=== PATIENT | female | born 1980 | race Caucasian/White ===

== ENCOUNTER 2020-01-15 14:40 | Outpatient (REF) | payer MEDICAID, SELFPAY ==
[2020-01-15 21:49] LABS: Hemoglobin A1C 5.9 % (<5.7)
[2020-01-15 22:10] LABS: ALT 37 U/L (14-59); AST 17 U/L (15-37); Albumin 3.4 g/dL (3.4-5.0); Alkaline Phosphatase 95 U/L (46-116); BUN 12 mg/dL (7-18); Bilirubin, Total 0.3 mg/dL (0.2-1.0); CREATININE 0.78 mg/dL (0.55-1.02); Calcium 8.6 mg/dL (8.5-10.1); Calculated LDL 109 mg/dL (<100); Chloride 103 mmol/L (98-107); Cholesterol 176 mg/dL (<200); Glucose 103 mg/dL (74-106); HDL Cholesterol 42 mg/dL (40-60); Potassium 4.6 mmol/L (3.5-5.1); Sodium 137 mmol/L (136-145); TSH (W/Ref FT4) 0.96 uIU/mL (0.36-3.74); Total Protein 6.8 g/dL (6.4-8.2); Triglyceride 129 mg/dL (<150); Vitamin B12 380 pg/mL (193-986)
== END 2020-01-15 15:00 ==
LOC: NCHCN 14:40
PROVIDERS: Visit Provider Nurse Practitioner Family
DX: G62.9 Polyneuropathy, unspecified (principal); Z13.220 Encounter for screening for lipoid disorders; Z13.29 Encounter for screening for other suspected endocrine disorder; Z13.1 Encounter for screening for diabetes mellitus
CPT/HCPCS: 80053; 80061; 82607; 83036; 84443

== ENCOUNTER 2020-02-26 17:50 | Outpatient (REF) | payer MEDICAID, SELFPAY ==
[2020-02-26 13:56] LABS: Abs Immature Grans 0.06 10^3/uL (0.0-0.06); Absolute Basophil Count 0.07 10^3/uL (0.0-0.2); Absolute Eosinophil Count 0.54 10^3/uL (0.0-0.7); Absolute Lymphocyte Count 2.77 10^3/uL (1.2-3.4); Absolute Monocyte Count 0.97 10^3/uL (0.1-0.8); Basophils % 0.6; Eosinophils % 4.8; HCT 43.1 % (36.0-46.0); Immature Grans % 0.5; Lymphocytes % 24.6; MCH 28.7 pg (27.0-33.0); MCHC 32.5 % (32.0-36.0); MCV 88.3 fL (80-95); MPV 9.2 fL (8.0-11.0); Monocytes % 8.6; Neutrophils % 60.9; Nucleated RBC 0 %; Platelet Count 355 10^3/uL (130-400); RBC 4.88 10^6/uL (3.93-5.22); RDW 13.1 % (11.7-14.6); RDW-SD 42.4 fL; WBC 11.24 10^3/uL (4.4-10.8)
[2020-02-26 13:58] LABS: Absolute Neutrophil Count 6.85 10^3/uL (1.2-6.7)
[2020-02-26 14:16] LABS: ALT 49 U/L (14-59); AST 21 U/L (15-37); Albumin 3.3 g/dL (3.4-5.0); Alkaline Phosphatase 104 U/L (46-116); Anion Gap 5.1 mmol/L (3-11); BUN 11 mg/dL (7-18); Bilirubin, Total 0.4 mg/dL (0.2-1.0); CO2 29.9 mmol/L (21.0-32.0); CREATININE 0.68 mg/dL (0.55-1.02); Calcium 8.6 mg/dL (8.5-10.1); Chloride 102 mmol/L (98-107); Glucose 98 mg/dL (74-106); Lipase 66 U/L (73-393); Potassium 4.4 mmol/L (3.5-5.1); Sodium 137 mmol/L (136-145); Total Protein 6.8 g/dL (6.4-8.2)
[2020-02-26 14:28] LABS: Bacteria Moderate HPF (Negative)
[2020-02-26 14:29] LABS: C & S Indicated? No/Sq. Contamination; Epithelial Cells Many HPF (Negative)
== END 2020-02-26 18:10 ==
LOC: NCHCN 17:50
PROVIDERS: PCP Nurse Practitioner Family; Visit Provider Nurse Practitioner Family
DX: R10.9 Unspecified abdominal pain (principal)
CPT/HCPCS: 80053; 83690; 81015; 85025

== ENCOUNTER 2020-03-26 15:20 | Outpatient (REF) | payer MEDICAID, SELFPAY ==
[2020-03-26 21:30] LABS: Bacteria Negative HPF (Negative); C & S Indicated? No; Crystals Negative HPF (Negative); Epithelial Cells Moderate HPF (Negative); Mucus Negative (Negative); RBC 0-2 HPF (0-2); WBC Negative HPF (0-5)
== END 2020-03-26 15:21 | disposition home or self-care (01) ==
LOC: NCHCN 15:20
PROVIDERS: PCP Nurse Practitioner Family; Visit Provider Nurse Practitioner Family
DX: R10.9 Unspecified abdominal pain (principal)
CPT/HCPCS: 81015

== ENCOUNTER 2020-07-29 12:13 | Outpatient (REF) | payer MEDICAID, SELFPAY ==
[2020-07-30 11:34] LABS: COVID-19 RT-PCR UVMMC Result Negative (Negative)
== END 2020-07-29 12:14 | disposition home or self-care (01) ==
LOC: NCHCN 12:13
PROVIDERS: PCP Nurse Practitioner Family; Visit Provider Nurse Practitioner Family
DX: Z20.822 Contact with and (suspected) exposure to COVID-19 (principal); J06.9 Acute upper respiratory infection, unspecified
CPT/HCPCS: U0003

== ENCOUNTER 2021-08-14 17:47 | Outpatient (REF) | payer MEDICAID, SELFPAY ==
[2021-08-14 21:45] LABS: Abs Immature Grans 0.05 10^3/uL (0.0-0.06); Absolute Basophil Count 0.04 10^3/uL (0.0-0.2); Absolute Eosinophil Count 0.37 10^3/uL (0.0-0.7); Absolute Lymphocyte Count 2.89 10^3/uL (1.2-3.4); Absolute Monocyte Count 0.76 10^3/uL (0.1-0.8); Absolute Neutrophil Count 6.21 10^3/uL (1.2-6.7); Basophils % 0.4; Eosinophils % 3.6; HCT 44.5 % (36.0-46.0); HGB 14.4 g/dL (11.2-15.7); Immature Grans % 0.5; MCH 29.2 pg (27.0-33.0); MCHC 32.4 % (32.0-36.0); MCV 90 fL (80-95); MPV 9.8 fL (8.0-11.0); Monocytes % 7.4; Neutrophils % 60.1; Platelet Count 310 10^3/uL (130-400); RBC 4.93 10^6/uL (3.93-5.22); RDW 12.7 % (11.7-14.6); RDW-SD 41.4 fL; WBC 10.32 10^3/uL (4.4-10.8)
[2021-08-14 22:10] LABS: ALT 65 U/L (14-59); AST 40 U/L (15-37); Albumin 3.3 g/dL (3.4-5.0); Alkaline Phosphatase 99 U/L (46-116); Anion Gap 10.8 mmol/L (3-11); BUN 10 mg/dL (7-18); Bilirubin, Total 0.2 mg/dL (0.2-1.0); CO2 25.2 mmol/L (21.0-32.0); CREATININE 0.7 mg/dL (0.55-1.02); Calcium 8.6 mg/dL (8.5-10.1); Chloride 102 mmol/L (98-107); Glucose 113 mg/dL (74-106); Lipase 24 U/L (73-393); Potassium 3.8 mmol/L (3.5-5.1); Sodium 138 mmol/L (136-145)
== END 2021-08-14 17:48 | disposition home or self-care (01) ==
LOC: NCHCN 17:47
PROVIDERS: PCP Nurse Practitioner Family; Visit Provider Nurse Practitioner Family
DX: R19.7 Diarrhea, unspecified (principal)
CPT/HCPCS: 80053; 83690; 85025

== ENCOUNTER 2022-01-05 22:33 | Outpatient (REF) | payer MEDICAID, SELFPAY ==
[2022-01-05 22:35] LABS: TSH 1.22 uIU/mL (0.36-3.74)
== END 2022-01-05 22:34 | disposition home or self-care (01) ==
LOC: NCHCN 22:33
PROVIDERS: PCP Nurse Practitioner Family; Visit Provider Nurse Practitioner Family
DX: Z13.29 Encounter for screening for other suspected endocrine disorder (principal)
CPT/HCPCS: 84443

== ENCOUNTER 2022-04-24 17:07 | Outpatient (REF) | payer MEDICAID, SELFPAY ==
[2022-04-24 21:28] LABS: Abs Immature Grans 0.04 10^3/uL (0.0-0.06); Absolute Basophil Count 0.08 10^3/uL (0.0-0.2); Absolute Eosinophil Count 0.25 10^3/uL (0.0-0.7); Absolute Lymphocyte Count 3.37 10^3/uL (1.2-3.4); Absolute Monocyte Count 0.89 10^3/uL (0.1-0.8); Absolute Neutrophil Count 6.72 10^3/uL (1.2-6.7); Basophils % 0.7; Eosinophils % 2.2; HCT 45.5 % (36.0-46.0); HGB 15.2 g/dL (11.2-15.7); Immature Grans % 0.4; Lymphocytes % 29.7; MCH 29.8 pg (27.0-33.0); MCHC 33.4 % (32.0-36.0); MCV 89 fL (80-95); MPV 9.7 fL (8.0-11.0); Monocytes % 7.8; Neutrophils % 59.2; Platelet Count 397 10^3/uL (130-400); RDW 12.1 % (11.7-14.6); RDW-SD 39.6 fL; WBC 11.35 10^3/uL (4.4-10.8)
[2022-04-24 21:49] LABS: ALT 54 U/L (14-59); AST 28 U/L (15-37); Albumin 3.4 g/dL (3.4-5.0); Alkaline Phosphatase 95 U/L (46-116); BUN 20 mg/dL (7-18); Bilirubin, Total 0.2 mg/dL (0.2-1.0); CREATININE 0.9 mg/dL (0.55-1.02); Calcium 9.1 mg/dL (8.5-10.1); Chloride 101 mmol/L (98-107); Estimated GFR 81.86 (mL/min/1.73m2); Glucose 131 mg/dL (74-106); Sodium 139 mmol/L (136-145); Total Protein 7.2 g/dL (6.4-8.2)
== END 2022-04-24 17:08 | disposition home or self-care (01) ==
LOC: NCHCN 17:07
PROVIDERS: PCP Nurse Practitioner Family; Visit Provider Registered Nurse
DX: E66.01 Morbid (severe) obesity due to excess calories (principal); Z13.1 Encounter for screening for diabetes mellitus; Z13.228 Encounter for screening for other metabolic disorders
CPT/HCPCS: 80053; 85025

== ENCOUNTER 2023-04-27 13:02 | Outpatient (REF) | payer MEDICAID, SELFPAY ==
[2023-04-27 14:55] LABS: ALT 52 U/L (14-59); AST 41 U/L (15-37); Albumin 3.4 g/dL (3.4-5.0); Alkaline Phosphatase 91 U/L (46-116); Anion Gap 10.9 mmol/L (3-11); BUN 8 mg/dL (7-18); Bilirubin, Total 0.5 mg/dL (0.2-1.0); CO2 33.1 mmol/L (21.0-32.0); CREATININE 0.8 mg/dL (0.55-1.02); Calcium 8.5 mg/dL (8.5-10.1); Chloride 97 mmol/L (98-107); Glucose 130 mg/dL (74-106); Sodium 141 mmol/L (136-145); Total Protein 7.7 g/dL (6.4-8.2)
[2023-04-27 15:05] LABS: Potassium 2.6 mmol/L (3.5-5.1)
== END 2023-04-27 13:03 | disposition home or self-care (01) ==
LOC: NCHCN 13:02
PROVIDERS: PCP Nurse Practitioner Family; Visit Provider Family Medicine
DX: R73.03 Prediabetes (principal); I10 Essential (primary) hypertension
CPT/HCPCS: 80053; 83036

== ENCOUNTER 2023-06-15 15:46 | Outpatient (REF) | payer MEDICAID, SELFPAY ==
[2023-06-15 20:45] LABS: Anion Gap 6.6 mmol/L (3-11); BUN 9 mg/dL (7-18); CO2 31.4 mmol/L (21.0-32.0); CREATININE 0.7 mg/dL (0.55-1.02); Calcium 9.3 mg/dL (8.5-10.1); Chloride 101 mmol/L (98-107); Estimated GFR 109.98 (mL/min/1.73m2); Glucose 127 mg/dL (74-106); Potassium 3.9 mmol/L (3.5-5.1); Sodium 139 mmol/L (136-145)
== END 2023-06-15 15:47 | disposition home or self-care (01) ==
LOC: NCHCN 15:46
PROVIDERS: PCP Nurse Practitioner Family; Visit Provider Family Medicine
DX: E87.6 Hypokalemia (principal)
CPT/HCPCS: 80048

== ENCOUNTER 2023-08-20 22:03 | Outpatient (REF) | payer MEDICAID, SELFPAY ==
[2023-08-20 15:23] LABS: Anion Gap 7.1 mmol/L (3-11); BUN 9 mg/dL (7-18); CO2 33.9 mmol/L (21.0-32.0); CREATININE 0.9 mg/dL (0.55-1.02); Calcium 9.2 mg/dL (8.5-10.1); Calculated LDL 109 mg/dL (<100); Chloride 101 mmol/L (98-107); Cholesterol 185 mg/dL (<200); Estimated GFR 81.35 (mL/min/1.73m2); Glucose 111 mg/dL (74-106); HDL Cholesterol 36 mg/dL (40-60); Potassium 3.7 mmol/L (3.5-5.1); Sodium 142 mmol/L (136-145); Triglyceride 201 mg/dL (<150)
--- OUTSIDE RECORDS SUMMARY | 2023-08-20 22:10 | XMS_ITS ---
Author Organization Unknown Address [address] [place] [address] [phone] Phone Care Team Providers Care Body Builder Apprentice Name Role Phone KELLER HUSSAIN GUTIERREZ Attending Unavail able MIGUEL TO Primary Unavailable Social History Type Status Start Date End Date Code Code Syst em Smoking History Former smoker 12/20/19977081 3469277 SNOMED CT Sex Female Medications Medication Start Date End Date Route Frequency Dose Code Code System Medication Instructions Home Meds Low Dose Aspirin 81MG Oral Tablet, Enteric Coated 04/11/2022 Unknown ORAL DAILY WITH FOOD 81 MILLIGRAMS 107933 RxNorm TAKE 81 MILLIGRAMS ORAL DAILY WITH FOOD Metoprolol Succinate 50MG Oral Tablet, Extended Release 04/11/2022 Unknown ORAL DAILY 50 MILLIGRAMS 325095 RxNorm TAKE 50 MILLIGRAMS ORAL DAILY Entresto 24MG-26MG Oral Tablet 04/11/2022 Unknown ORAL TWICE A DAY 1 TABLET [id number] RxNorm TAKE 1 TABLET ORAL TWICE A DAY Albuterol Sulfate HFA 0.09MG/1Actua tion Inhalation Suspension 04/11/2022 Unknown INHALATIO N 1 unit(s) 0368345 RxNorm 1 EACH INHALATION Buprenorphine 2MG Sublingual Tablet 04/11/2022 Unknown SUBLINGUA L noon 2 MILLIGRAMS 338053 RxNorm DISSOLVE 2 MILLIGRAMS SUBLINGUAL noon Buprenorphine 2MG Sublingual Tablet 04/11/2022 Unknown SUBLINGUA L TWICE A DAY 4 MILLIGRAMS 137735 RxNorm DISSOLVE 4 MILLIGRAMS SUBLINGUAL TWICE A DAY Gabapentin 300MG Oral Capsule 04/11/2022 Unknown ORAL NEEDED TWICE DAILY 300 MILLIGRAMS 660716 RxNorm TAKE 300 MILLIGRAMS ORAL NEEDED TWICE DAILY Torsemide 20MG Oral Tablet 04/11/2022 Unknown ORAL DAILY 1 TABLET 264039 RxNorm TAKE 1 TABLET ORAL DAILY Doxycycline 100MG Oral Capsule 12/08/2022 04/27/19 24 ORAL TWICE A DAY 1 CAPSULE 1717257 RxNorm TAKE 1 CAPSULE ORAL TWICE A DAY Krysten Allergy 180MG Oral Tablet 04/28/2023 Unknown ORAL DAILY 180 MILLIGRAMS 747403 RxNorm TAKE 180 MILLIGRAMS ORAL DAILY Jardiance 10MG Oral Tablet 04/28/2023 Unknown ORAL DAILY 10 MILLIGRAMS 4887112 RxNorm TAKE 10 MILLIGRAMS ORAL DAILY Spironolacton e 25MG Oral Tablet 04/28/2023 Unknown ORAL DAILY 12.5 MILLIGRAMS 067821 RxNorm TAKE 12.5 MILLIGRAMS ORAL DAILY Potassium Chloride 10MEQ Oral Tablet, Extended Release 04/28/2023 Unknown ORAL DAILY 1 TABLET 478002 RxNorm TAKE 1 TABLET ORAL DAILY Assessment You had the following problems:HYPOKALEMIAHYPOMAGNESEMIACARDIOMYOPATHYOBSTRUCTIVE SLEEP APNEAHYPERTENSIONANXIETY Hospital Discharge Instructions Should you have any questions prior to discharge, please contact a member of your healthcare team. If you have left the hospital and have any questions, please contact your primary care physician. Reason For Referral No Data Found Problems Problem Start Date Resolved Date Status Code Code System HYPOKALEMIA active 69465840 SNOMED-C T HYPOMAGNESEMIA active 021178546 SNOME D-CT CARDIOMYOPATHY active 53341070 SNOME D-CT OBSTRUCTIVE SLEEP APNEA active 956696 09 SNOMED-CT HYPERTENSION active 31315539 SNOMED- CT ANXIETY active 53930026 SNOMED-CT ANGIOEDEMA 04/27/2023 resolved 16100211 SNOMED-C T Allergies and Adverse Reactions Allergy Substance Reaction Severity Start Date Concern Status Code Code System FUROSEMIDE Anaphylaxis (SNOMED-CT: 95452261) Active 4603 RxNorm NALOXONE Anaphylaxis (SNOMED-CT: 97871195) Active 7242 RxNorm HYDROCODONE Headache (SNOMED-CT: 81773811), NAUSEA (SNOMED-CT: 458125751), Nausea (SNOMED-CT: 667967935) Active 5489 RxNorm RITALIN Anaphylaxis (SNOMED-CT: 44453986) Active 002811 RxNorm ALMOND Anaphylaxis (SNOMED-CT: 15103499) 04/08/2018 Active 035035944 SNOMED-CT Plan of Treatment MM SCREEN BILAT 07/08/2023 MM SCREEN BILAT 05/12/2022 MM SCREEN BILAT 03/23/2022 MM SCREEN BILAT 12/02/2020 US ABDOMEN COMPLETE 10/06/2021 US ABDOMEN LIMITED 1 ORGAN 05/12/2022 US ABDOMEN LIMITED 1 ORGAN 03/18/2022 Encounters Encounter Diagnosis Start Date Code Code Sys tem Obstructive sleep apnea (adult) (pediatric) 04/23/2021 SNOMED-CT Personal Care Team Section Performer Name Performer Role Active Date Inactive Da te
--- OUTSIDE RECORDS SUMMARY | 2023-08-20 22:10 | XMS_ITS ---
Author Organization Unknown Address [address] [place] [address] [phone] Phone Care Team Providers Care Erector Operator Name Role Phone INDER PEDROZAOMI Ranjith Attending Unavailable CIARA MARQUEZ Primary Unavailable Social History Type Status Start Date End Date Code Code Syst em Smoking History Former smoker 12/20/19973611 36879[address] SNOMED [address] Sex Female Medications Medication Start Date End Date Route Frequency Dose Code Code System Medication Instructions Home Meds Low Dose Aspirin 81MG Oral Tablet, Enteric Coated 04/11/2022 Unknown ORAL DAILY WITH FOOD 81 MILLIGRAMS 908132 RxNorm TAKE 81 MILLIGRAMS ORAL DAILY WITH FOOD Metoprolol Succinate 50MG Oral Tablet, Extended Release 04/11/2022 Unknown ORAL DAILY 50 MILLIGRAMS 657776 RxNorm TAKE 50 MILLIGRAMS ORAL DAILY Entresto 24MG-26MG Oral Tablet 04/11/2022 Unknown ORAL TWICE A DAY 1 TABLET 5473373 RxNorm TAKE 1 TABLET ORAL TWICE A DAY Albuterol Sulfate HFA 0.09MG/1Actua tion Inhalation Suspension 04/11/2022 Unknown INHALATIO N 1 unit(s) 5090804 RxNorm 1 EACH INHALATION Buprenorphine 2MG Sublingual Tablet 04/11/2022 Unknown SUBLINGUA L noon 2 MILLIGRAMS 231207 RxNorm DISSOLVE 2 MILLIGRAMS SUBLINGUAL noon Buprenorphine 2MG Sublingual Tablet 04/11/2022 Unknown SUBLINGUA L TWICE A DAY 4 MILLIGRAMS 676120 RxNorm DISSOLVE 4 MILLIGRAMS SUBLINGUAL TWICE A DAY Gabapentin 300MG Oral Capsule 04/11/2022 Unknown ORAL NEEDED TWICE DAILY 300 MILLIGRAMS 938253 RxNorm TAKE 300 MILLIGRAMS ORAL NEEDED TWICE DAILY Torsemide 20MG Oral Tablet 04/11/2022 Unknown ORAL DAILY 1 TABLET 073884 RxNorm TAKE 1 TABLET ORAL DAILY Doxycycline 100MG Oral Capsule 12/08/2022 04/27/19 24 ORAL TWICE A DAY 1 CAPSULE 4803169 RxNorm TAKE 1 CAPSULE ORAL TWICE A DAY Krysten Allergy 180MG Oral Tablet 04/28/2023 Unknown ORAL DAILY 180 MILLIGRAMS 891087 RxNorm TAKE 180 MILLIGRAMS ORAL DAILY Jardiance 10MG Oral Tablet 04/28/2023 Unknown ORAL DAILY 10 MILLIGRAMS 9252326 RxNorm TAKE 10 MILLIGRAMS ORAL DAILY Spironolacton e 25MG Oral Tablet 04/28/2023 Unknown ORAL DAILY 12.5 MILLIGRAMS 014693 RxNorm TAKE 12.5 MILLIGRAMS ORAL DAILY Potassium Chloride 10MEQ Oral Tablet, Extended Release 04/28/2023 Unknown ORAL DAILY 1 TABLET 572021 RxNorm TAKE 1 TABLET ORAL DAILY Assessment [...] Date Status Code Code System HYPOKALEMIA active 18081326 SNOMED-C T HYPOMAGNESEMIA active 907726073 SNOME D-CT CARDIOMYOPATHY active 34903092 SNOME D-CT OBSTRUCTIVE SLEEP APNEA active 469883 09 SNOMED-CT HYPERTENSION active 82477266 SNOMED- CT ANXIETY active 51810742 SNOMED-CT ANGIOEDEMA 04/27/2023 resolved 82687266 SNOMED-C T Allergies and Adverse Reactions Allergy Substance Reaction Severity Start Date Concern Status Code Code System FUROSEMIDE Anaphylaxis (SNOMED-CT: 05867606) Active 4603 RxNorm NALOXONE Anaphylaxis (SNOMED-CT: 43059439) Active 7242 RxNorm HYDROCODONE Headache (SNOMED-CT: 57729343), NAUSEA (SNOMED-CT: 482999775), Nausea (SNOMED-CT: 805840658) Active 5489 RxNorm RITALIN Anaphylaxis (SNOMED-CT: 57252068) Active 213823 RxNorm ALMOND Anaphylaxis (SNOMED-CT: 38559373) 04/08/2018 Active 424161628 SNOMED-CT Plan of Treatment MM SCREEN BILAT 07/08/2023 MM SCREEN BILAT 05/12/2022 MM SCREEN BILAT 03/23/2022 MM SCREEN BILAT 12/02/2020 US ABDOMEN COMPLETE 10/06/2021 US ABDOMEN LIMITED 1 ORGAN 05/12/2022 US ABDOMEN LIMITED 1 ORGAN 03/18/2022 Encounters Encounter Diagnosis Start Date Code Code Sys tem Obstructive sleep apnea (adult) (pediatric) 02/11/2021 SNOMED-CT Personal Care Team Section Performer Name Performer Role Active Date Inactive Da te
--- OUTSIDE RECORDS SUMMARY | 2023-08-20 22:11 | XMS_ITS ---
Author Organization Unknown Address [address] [place] [address] [phone] Phone Care Team Providers Care Scale Expert Name Role Phone INDER PEDROZAOMI Ranjith Attending Unavailable MIGUEL TO Primary Unavailable Social History Type Status Start Date End Date Code Code Syst em Smoking History Former smoker 12/20/19972895 80[address] Sex Female Medications Medication Start Date End Date Route Frequency Dose Code Code System Medication Instructions Home Meds Low Dose Aspirin 81MG Oral Tablet, Enteric Coated 04/11/2022 Unknown ORAL DAILY WITH FOOD 81 MILLIGRAMS 837694 RxNorm TAKE 81 MILLIGRAMS ORAL DAILY WITH FOOD Metoprolol Succinate 50MG Oral Tablet, Extended Release 04/11/2022 Unknown ORAL DAILY 50 MILLIGRAMS 608842 RxNorm TAKE 50 MILLIGRAMS ORAL DAILY Entresto 24MG-26MG Oral Tablet 04/11/2022 Unknown ORAL TWICE A DAY 1 TABLET 4519095 RxNorm TAKE 1 TABLET ORAL TWICE A DAY Albuterol Sulfate HFA 0.09MG/1Actua tion Inhalation Suspension 04/11/2022 Unknown INHALATIO N 1 unit(s) 8910580 RxNorm 1 EACH INHALATION Buprenorphine 2MG Sublingual Tablet 04/11/2022 Unknown SUBLINGUA L noon 2 MILLIGRAMS 205343 RxNorm DISSOLVE 2 MILLIGRAMS SUBLINGUAL noon Buprenorphine 2MG Sublingual Tablet 04/11/2022 Unknown SUBLINGUA L TWICE A DAY 4 MILLIGRAMS 456587 RxNorm DISSOLVE 4 MILLIGRAMS SUBLINGUAL TWICE A DAY Gabapentin 300MG Oral Capsule 04/11/2022 Unknown ORAL NEEDED TWICE DAILY 300 MILLIGRAMS 014089 RxNorm TAKE 300 MILLIGRAMS ORAL NEEDED TWICE DAILY Torsemide 20MG Oral Tablet 04/11/2022 Unknown ORAL DAILY 1 TABLET 492846 RxNorm TAKE 1 TABLET ORAL DAILY Doxycycline 100MG Oral Capsule 12/08/2022 04/27/19 24 ORAL TWICE A DAY 1 CAPSULE 9860794 RxNorm TAKE 1 CAPSULE ORAL TWICE A DAY Krysten Allergy 180MG Oral Tablet 04/28/2023 Unknown ORAL DAILY 180 MILLIGRAMS 341207 RxNorm TAKE 180 MILLIGRAMS ORAL DAILY Jardiance 10MG Oral Tablet 04/28/2023 Unknown ORAL DAILY 10 MILLIGRAMS 8249609 RxNorm TAKE 10 MILLIGRAMS ORAL DAILY Spironolacton e 25MG Oral Tablet 04/28/2023 Unknown ORAL DAILY 12.5 MILLIGRAMS 154815 RxNorm TAKE 12.5 MILLIGRAMS ORAL DAILY Potassium Chloride 10MEQ Oral Tablet, Extended Release 04/28/2023 Unknown ORAL DAILY 1 TABLET 233635 RxNorm TAKE 1 TABLET ORAL DAILY Assessment [...] Date Status Code Code System HYPOKALEMIA active 09551709 SNOMED-C T HYPOMAGNESEMIA active 794328970 SNOME D-CT CARDIOMYOPATHY active 78383647 SNOME D-CT OBSTRUCTIVE SLEEP APNEA active 207406 09 SNOMED-CT HYPERTENSION active 37673377 SNOMED- CT ANXIETY active 05606188 SNOMED-CT ANGIOEDEMA 04/27/2023 resolved 19221036 SNOMED-C T Allergies and Adverse Reactions Allergy Substance Reaction Severity Start Date Concern Status Code Code System FUROSEMIDE Anaphylaxis (SNOMED-CT: 97412126) Active 4603 RxNorm NALOXONE Anaphylaxis (SNOMED-CT: 80488904) Active 7242 RxNorm HYDROCODONE Headache (SNOMED-CT: 11802806), NAUSEA (SNOMED-CT: 826715475), Nausea (SNOMED-CT: 079129824) Active 5489 RxNorm RITALIN Anaphylaxis (SNOMED-CT: 89854057) Active 904059 RxNorm ALMOND Anaphylaxis (SNOMED-CT: 26377809) 04/08/2018 Active 354901515 SNOMED-CT Plan of Treatment MM SCREEN BILAT 07/08/2023 MM SCREEN BILAT 05/12/2022 MM SCREEN BILAT 03/23/2022 MM SCREEN BILAT 12/02/2020 US ABDOMEN COMPLETE 10/06/2021 US ABDOMEN LIMITED 1 ORGAN 05/12/2022 US ABDOMEN LIMITED 1 ORGAN 03/18/2022 Encounters Encounter Diagnosis Start Date Code Code Sys tem Person consulting for explan ation of examination or test findings 05/07/2021 SNOMED-CT Personal Care Team Section Performer Name Performer Role Active Date Inactive Da te
--- OUTSIDE RECORDS SUMMARY | 2023-08-20 22:11 | XMS_ITS ---
Author Organization Unknown Address [address] [place] [address] [phone] Phone Care Team Providers Care Indoor Plant Technician Name Role Phone RACH Jacobo Attending Unavailable Social History Type Status Start Date End Date Code Code Syst em Smoking History Former smoker 12/20/19972236 6308218 SNOMED CT Sex Female Medications Medication Start Date End Date Route Frequency Dose Code Code System Medication Instructions Home Meds Low Dose Aspirin 81MG Oral Tablet, Enteric Coated 04/11/2022 Unknown ORAL DAILY WITH FOOD 81 MILLIGRAMS 498129 RxNorm TAKE 81 MILLIGRAMS ORAL DAILY WITH FOOD Metoprolol Succinate 50MG Oral Tablet, Extended Release 04/11/2022 Unknown ORAL DAILY 50 MILLIGRAMS 701415 RxNorm TAKE 50 MILLIGRAMS ORAL DAILY Entresto 24MG-26MG Oral Tablet 04/11/2022 Unknown ORAL TWICE A DAY 1 TABLET 9259816 RxNorm TAKE 1 TABLET ORAL TWICE A DAY Albuterol Sulfate HFA 0.09MG/1Actua tion Inhalation Suspension 04/11/2022 Unknown INHALATIO N 1 unit(s) 0354680 RxNorm 1 EACH INHALATION Buprenorphine 2MG Sublingual Tablet 04/11/2022 Unknown SUBLINGUA L noon 2 MILLIGRAMS 408696 RxNorm DISSOLVE 2 MILLIGRAMS SUBLINGUAL noon Buprenorphine 2MG Sublingual Tablet 04/11/2022 Unknown SUBLINGUA L TWICE A DAY 4 MILLIGRAMS 012638 RxNorm DISSOLVE 4 MILLIGRAMS SUBLINGUAL TWICE A DAY Gabapentin 300MG Oral Capsule 04/11/2022 Unknown ORAL NEEDED TWICE DAILY 300 MILLIGRAMS 925224 RxNorm TAKE 300 MILLIGRAMS ORAL NEEDED TWICE DAILY Torsemide 20MG Oral Tablet 04/11/2022 Unknown ORAL DAILY 1 TABLET 090440 RxNorm TAKE 1 TABLET ORAL DAILY Doxycycline 100MG Oral Capsule 12/08/2022 04/27/19 24 ORAL TWICE A DAY 1 CAPSULE 9891342 RxNorm TAKE 1 CAPSULE ORAL TWICE A DAY Krysten Allergy 180MG Oral Tablet 04/28/2023 Unknown ORAL DAILY 180 MILLIGRAMS 115550 RxNorm TAKE 180 MILLIGRAMS ORAL DAILY Jardiance 10MG Oral Tablet 04/28/2023 Unknown ORAL DAILY 10 MILLIGRAMS 1254336 RxNorm TAKE 10 MILLIGRAMS ORAL DAILY Spironolacton e 25MG Oral Tablet 04/28/2023 Unknown ORAL DAILY 12.5 MILLIGRAMS 802736 RxNorm TAKE 12.5 MILLIGRAMS ORAL DAILY Potassium Chloride 10MEQ Oral Tablet, Extended Release 04/28/2023 Unknown ORAL DAILY 1 TABLET 011050 RxNorm TAKE 1 TABLET ORAL DAILY Assessment [...] Date Status Code Code System HYPOKALEMIA active 85527255 SNOMED-C T HYPOMAGNESEMIA active 042901941 SNOME D-CT CARDIOMYOPATHY active 66482546 SNOME D-CT OBSTRUCTIVE SLEEP APNEA active 741535 09 SNOMED-CT HYPERTENSION active 39369563 SNOMED- CT ANXIETY active 44918241 SNOMED-CT ANGIOEDEMA 04/27/2023 resolved 72796159 SNOMED-C T Allergies and Adverse Reactions Allergy Substance Reaction Severity Start Date Concern Status Code Code System FUROSEMIDE Anaphylaxis (SNOMED-CT: 69136060) Active 4603 RxNorm NALOXONE Anaphylaxis (SNOMED-CT: 52376608) Active 7242 RxNorm HYDROCODONE Headache (SNOMED-CT: 95799222), NAUSEA (SNOMED-CT: 038700062), Nausea (SNOMED-CT: 089856565) Active 5489 RxNorm RITALIN Anaphylaxis (SNOMED-CT: 17968155) Active 463788 RxNorm ALMOND Anaphylaxis (SNOMED-CT: 47455225) 04/08/2018 Active 487640573 SNOMED-CT Plan of Treatment MM SCREEN BILAT 07/08/2023 MM SCREEN BILAT 05/12/2022 MM SCREEN BILAT 03/23/2022 MM SCREEN BILAT 12/02/2020 US ABDOMEN COMPLETE 10/06/2021 US ABDOMEN LIMITED 1 ORGAN 05/12/2022 US ABDOMEN LIMITED 1 ORGAN 03/18/2022 Encounters Encounter Diagnosis Start Date Code Code Sys tem Hypertensive heart disease with heart failure 04/09/19 23 SNOMED-CT Personal Care Team Section Performer Name Performer Role Active Date Inactive Da te
--- OUTSIDE RECORDS SUMMARY | 2023-08-20 22:11 | XMS_ITS ---
Author Organization Unknown Address [address] [place] [address] [phone] Phone Care Team Providers Care Prepared Foods Team Leader Name Role Phone INDER PEDROZAOMI Ranjith Attending Unavailable MIGUEL TO Primary Unavailable Social History Type Status Start Date End Date Code Code Syst em Smoking History Former smoker 12/20/19978855 6654244 SNOMED CT Sex Female Medications Medication Start Date End Date Route Frequency Dose Code Code System Medication Instructions Home Meds Low Dose Aspirin 81MG Oral Tablet, Enteric Coated 04/11/2022 Unknown ORAL DAILY WITH FOOD 81 MILLIGRAMS 188575 RxNorm TAKE 81 MILLIGRAMS ORAL DAILY WITH FOOD Metoprolol Succinate 50MG Oral Tablet, Extended Release 04/11/2022 Unknown ORAL DAILY 50 MILLIGRAMS 824591 RxNorm TAKE 50 MILLIGRAMS ORAL DAILY Entresto 24MG-26MG Oral Tablet 04/11/2022 Unknown ORAL TWICE A DAY 1 TABLET 4076119 RxNorm TAKE 1 TABLET ORAL TWICE A DAY Albuterol Sulfate HFA 0.09MG/1Actua tion Inhalation Suspension 04/11/2022 Unknown INHALATIO N 1 unit(s) 1998559 RxNorm 1 EACH INHALATION Buprenorphine 2MG Sublingual Tablet 04/11/2022 Unknown SUBLINGUA L noon 2 MILLIGRAMS 520703 RxNorm DISSOLVE 2 MILLIGRAMS SUBLINGUAL noon Buprenorphine 2MG Sublingual Tablet 04/11/2022 Unknown SUBLINGUA L TWICE A DAY 4 MILLIGRAMS 305161 RxNorm DISSOLVE 4 MILLIGRAMS SUBLINGUAL TWICE A DAY Gabapentin 300MG Oral Capsule 04/11/2022 Unknown ORAL NEEDED TWICE DAILY 300 MILLIGRAMS 039107 RxNorm TAKE 300 MILLIGRAMS ORAL NEEDED TWICE DAILY Torsemide 20MG Oral Tablet 04/11/2022 Unknown ORAL DAILY 1 TABLET 922950 RxNorm TAKE 1 TABLET ORAL DAILY Doxycycline 100MG Oral Capsule 12/08/2022 04/27/19 24 ORAL TWICE A DAY 1 CAPSULE 9961883 RxNorm TAKE 1 CAPSULE ORAL TWICE A DAY Krysten Allergy 180MG Oral Tablet 04/28/2023 Unknown ORAL DAILY 180 MILLIGRAMS 550374 RxNorm TAKE 180 MILLIGRAMS ORAL DAILY Jardiance 10MG Oral Tablet 04/28/2023 Unknown ORAL DAILY 10 MILLIGRAMS 7413260 RxNorm TAKE 10 MILLIGRAMS ORAL DAILY Spironolacton e 25MG Oral Tablet 04/28/2023 Unknown ORAL DAILY 12.5 MILLIGRAMS 427611 RxNorm TAKE 12.5 MILLIGRAMS ORAL DAILY Potassium Chloride 10MEQ Oral Tablet, Extended Release 04/28/2023 Unknown ORAL DAILY 1 TABLET 263649 RxNorm TAKE 1 TABLET ORAL DAILY Assessment [...] Date Status Code Code System HYPOKALEMIA active 18350125 SNOMED-C T HYPOMAGNESEMIA active 918099552 SNOME D-CT CARDIOMYOPATHY active 00413841 SNOME D-CT OBSTRUCTIVE SLEEP APNEA active 028409 09 SNOMED-CT HYPERTENSION active 49930316 SNOMED- CT ANXIETY active 32549265 SNOMED-CT ANGIOEDEMA 04/27/2023 resolved 33329462 SNOMED-C T Allergies and Adverse Reactions Allergy Substance Reaction Severity Start Date Concern Status Code Code System FUROSEMIDE Anaphylaxis (SNOMED-CT: 84096901) Active 4603 RxNorm NALOXONE Anaphylaxis (SNOMED-CT: 90389746) Active 7242 RxNorm HYDROCODONE Headache (SNOMED-CT: 00337534), NAUSEA (SNOMED-CT: 087745700), Nausea (SNOMED-CT: 925758868) Active 5489 RxNorm RITALIN Anaphylaxis (SNOMED-CT: 34012339) Active 402894 RxNorm ALMOND Anaphylaxis (SNOMED-CT: 85364584) 04/08/2018 Active 661739690 SNOMED-CT Plan of Treatment MM SCREEN BILAT 07/08/2023 MM SCREEN BILAT 05/12/2022 MM SCREEN BILAT 03/23/2022 MM SCREEN BILAT 12/02/2020 US ABDOMEN COMPLETE 10/06/2021 US ABDOMEN LIMITED 1 ORGAN 05/12/2022 US ABDOMEN LIMITED 1 ORGAN 03/18/2022 Encounters Encounter Diagnosis Start Date Code Code Sys tem Procedure and treatment not carried out for other reas ons 09/11/2021 SNOMED-CT Personal Care Team Section Performer Name Performer Role Active Date Inactive Da te
--- OUTSIDE RECORDS SUMMARY | 2023-08-20 22:12 | XMS_ITS ---
Author Organization Unknown Address [address] [place] [address] [phone] Phone Care Team Providers Care Oven Drier Tender Name Role Phone INDER PEDROZAOMI Ranjith Attending Unavailable MIGUEL TO Primary Unavailable Social History Type Status Start Date End Date Code Code Syst em Smoking History Former smoker 12/20/19973364 8[address] SNOMED [address] Sex Female Medications Medication Start Date End Date Route Frequency Dose Code Code System Medication Instructions Home Meds Low Dose Aspirin 81MG Oral Tablet, Enteric Coated 04/11/2022 Unknown ORAL DAILY WITH FOOD 81 MILLIGRAMS 385825 RxNorm TAKE 81 MILLIGRAMS ORAL DAILY WITH FOOD Metoprolol Succinate 50MG Oral Tablet, Extended Release 04/11/2022 Unknown ORAL DAILY 50 MILLIGRAMS 803153 RxNorm TAKE 50 MILLIGRAMS ORAL DAILY Entresto 24MG-26MG Oral Tablet 04/11/2022 Unknown ORAL TWICE A DAY 1 TABLET 8859756 RxNorm TAKE 1 TABLET ORAL TWICE A DAY Albuterol Sulfate HFA 0.09MG/1Actua tion Inhalation Suspension 04/11/2022 Unknown INHALATIO N 1 unit(s) 3885819 RxNorm 1 EACH INHALATION Buprenorphine 2MG Sublingual Tablet 04/11/2022 Unknown SUBLINGUA L noon 2 MILLIGRAMS 889908 RxNorm DISSOLVE 2 MILLIGRAMS SUBLINGUAL noon Buprenorphine 2MG Sublingual Tablet 04/11/2022 Unknown SUBLINGUA L TWICE A DAY 4 MILLIGRAMS 632262 RxNorm DISSOLVE 4 MILLIGRAMS SUBLINGUAL TWICE A DAY Gabapentin 300MG Oral Capsule 04/11/2022 Unknown ORAL NEEDED TWICE DAILY 300 MILLIGRAMS 030543 RxNorm TAKE 300 MILLIGRAMS ORAL NEEDED TWICE DAILY Torsemide 20MG Oral Tablet 04/11/2022 Unknown ORAL DAILY 1 TABLET 183464 RxNorm TAKE 1 TABLET ORAL DAILY Doxycycline 100MG Oral Capsule 12/08/2022 04/27/19 24 ORAL TWICE A DAY 1 CAPSULE 5614181 RxNorm TAKE 1 CAPSULE ORAL TWICE A DAY Krysten Allergy 180MG Oral Tablet 04/28/2023 Unknown ORAL DAILY 180 MILLIGRAMS 331474 RxNorm TAKE 180 MILLIGRAMS ORAL DAILY Jardiance 10MG Oral Tablet 04/28/2023 Unknown ORAL DAILY 10 MILLIGRAMS 4562745 RxNorm TAKE 10 MILLIGRAMS ORAL DAILY Spironolacton e 25MG Oral Tablet 04/28/2023 Unknown ORAL DAILY 12.5 MILLIGRAMS 669545 RxNorm TAKE 12.5 MILLIGRAMS ORAL DAILY Potassium Chloride 10MEQ Oral Tablet, Extended Release 04/28/2023 Unknown ORAL DAILY 1 TABLET 084623 RxNorm TAKE 1 TABLET ORAL DAILY Assessment [...] Date Status Code Code System HYPOKALEMIA active 16342097 SNOMED-C T HYPOMAGNESEMIA active 710984219 SNOME D-CT CARDIOMYOPATHY active 78744393 SNOME D-CT OBSTRUCTIVE SLEEP APNEA active 010309 09 SNOMED-CT HYPERTENSION active 99554954 SNOMED- CT ANXIETY active 82335171 SNOMED-CT ANGIOEDEMA 04/27/2023 resolved 87079644 SNOMED-C T Allergies and Adverse Reactions Allergy Substance Reaction Severity Start Date Concern Status Code Code System FUROSEMIDE Anaphylaxis (SNOMED-CT: 22431328) Active 4603 RxNorm NALOXONE Anaphylaxis (SNOMED-CT: 43079327) Active 7242 RxNorm HYDROCODONE Headache (SNOMED-CT: 34222892), NAUSEA (SNOMED-CT: 058733364), Nausea (SNOMED-CT: 945836851) Active 5489 RxNorm RITALIN Anaphylaxis (SNOMED-CT: 83856377) Active 992850 RxNorm ALMOND Anaphylaxis (SNOMED-CT: 85827294) 04/08/2018 Active 695193484 SNOMED-CT Plan of Treatment MM SCREEN BILAT 07/08/2023 MM SCREEN BILAT 05/12/2022 MM SCREEN BILAT 03/23/2022 MM SCREEN BILAT 12/02/2020 US ABDOMEN COMPLETE 10/06/2021 US ABDOMEN LIMITED 1 ORGAN 05/12/2022 US ABDOMEN LIMITED 1 ORGAN 03/18/2022 Encounters Encounter Diagnosis Start Date Code Code Sys tem Obstructive sleep apnea (adult) (pediatric) 04/28/2022 SNOMED-CT Personal Care Team Section Performer Name Performer Role Active Date Inactive Da te
--- OUTSIDE RECORDS SUMMARY | 2023-08-20 22:12 | XMS_ITS ---
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 COMPARISON: Prior mammograms were reviewed. FINDINGS: There has been no significant change in the appearance and distribution of the fibroglandular tissue. There are no CAD designations. There are no new spiculated masses nor malignant appearing microcalcification groups. There is no significant architectural distortion nor skin thickening-retraction. IMPRESSION: 1. No radiographic evidence of malignancy. BiRads Category: 1-negative BI_RADS Density Category B: Scattered areas of fibroglandular density Breast density Category C or D implies that the patient has dense breast tissue. Dense breast tissue can make it harder to find cancer on a mammogram. Dense breast tissue is also associated with an increased risk of breast cancer. This information about the result of the mammogram report was provided to the patient to raise their awareness. Use this report when you speak with the patient about their risks for breast cancer, which includes their family history. At that time, you may recommend additional screening tests (Ultrasound or MRI) as these tests may add significant information. A negative radiographic report should not delay biopsy if a dominant or clinically suspicious mass is present. Up to ten percent of cancers are not identified on mammography. A negative report may reinforce clinical impression. Adenosis and dense breasts may obscure an underlying neoplasm. False positive reports average 6 to 10%. Patient will receive a letter notifying them of these results. 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 COMPARISON: No exams were available for comparison FINDINGS: There is no ascites evident. LIVER: Liver size is increased and liver is diffusely hyperechoic indicating steatosis. There are no discrete focal hepatic lesions identified. GALLBLADDER/BILIARY: There are no gallstones. No gallbladder wall edema nor pericholecystic fluid. The common hepatic duct is not visualized, this related to body habitus. PANCREAS: No obvious abnormality. RIGHT KIDNEY:No evidence of solid mass, calculus, nor hydronephrosis. No cortical cysts evident. ABDOMINAL AORTA AND IVC: Not seen due to body habitus. IMPRESSION: 1. Somewhat limited study due to body habitus. However, there is no evidence of cholelithiasis nor obvious dilatation of the biliary tree although the common hepatic duct was difficult to visualize on the study 2. Hepatomegaly and hepatic steatosis noted. Correlation with appropriate hepatic blood work recommended. No obvious discrete focal hepatic mass identified 3. There is no ascites. Report Digitally Signed by Dez Onofre on 05/12/2022 10:55 AM EDT 05/12/22.1058.[facility].to MIGUEL SNELLI via fax Social History Type Status Start Date End Date Code Code Syst em Smoking History Former smoker 12/20/19979498 0012218 SNOMED CT Sex Female Medications Medication Start Date End Date Route Frequency Dose Code Code System Medication Instructions Home Meds Low Dose Aspirin 81MG Oral Tablet, Enteric Coated 04/11/2022 Unknown ORAL DAILY WITH FOOD 81 MILLIGRAMS 923190 RxNorm TAKE 81 MILLIGRAMS ORAL DAILY WITH FOOD Metoprolol Succinate 50MG Oral Tablet, Extended Release 04/11/2022 Unknown ORAL DAILY 50 MILLIGRAMS 917303 RxNorm TAKE 50 MILLIGRAMS ORAL DAILY Entresto 24MG-26MG Oral Tablet 04/11/2022 Unknown ORAL TWICE A DAY 1 TABLET 1995956 RxNorm TAKE 1 TABLET ORAL TWICE A DAY Albuterol Sulfate HFA 0.09MG/1Actua tion Inhalation Suspension 04/11/2022 Unknown INHALATIO N 1 unit(s) 7984361 RxNorm 1 EACH INHALATION Buprenorphine 2MG Sublingual Tablet 04/11/2022 Unknown SUBLINGUA L noon 2 MILLIGRAMS 161177 RxNorm DISSOLVE 2 MILLIGRAMS SUBLINGUAL noon Buprenorphine 2MG Sublingual Tablet 04/11/2022 Unknown SUBLINGUA L TWICE A DAY 4 MILLIGRAMS 137855 RxNorm DISSOLVE 4 MILLIGRAMS SUBLINGUAL TWICE A DAY Gabapentin 300MG Oral Capsule 04/11/2022 Unknown ORAL NEEDED TWICE DAILY 300 MILLIGRAMS 666073 RxNorm TAKE 300 MILLIGRAMS ORAL NEEDED TWICE DAILY Torsemide 20MG Oral Tablet 04/11/2022 Unknown ORAL DAILY 1 TABLET 993594 RxNorm TAKE 1 TABLET ORAL DAILY Doxycycline 100MG Oral Capsule 12/08/2022 04/27/19 24 ORAL TWICE A DAY 1 CAPSULE 4713511 RxNorm TAKE 1 CAPSULE ORAL TWICE A DAY Krysten Allergy 180MG Oral Tablet 04/28/2023 Unknown ORAL DAILY 180 MILLIGRAMS 047215 RxNorm TAKE 180 MILLIGRAMS ORAL DAILY Jardiance 10MG Oral Tablet 04/28/2023 Unknown ORAL DAILY 10 MILLIGRAMS 9892416 RxNorm TAKE 10 MILLIGRAMS ORAL DAILY Spironolacton e 25MG Oral Tablet 04/28/2023 Unknown ORAL DAILY 12.5 MILLIGRAMS 698922 RxNorm TAKE 12.5 MILLIGRAMS ORAL DAILY Potassium Chloride 10MEQ Oral Tablet, Extended Release 04/28/2023 Unknown ORAL DAILY 1 TABLET 811018 RxNorm TAKE 1 TABLET ORAL DAILY Assessment [...] Date Status Code Code System HYPOKALEMIA active 76879122 SNOMED-C T HYPOMAGNESEMIA active 905570110 SNOME D-CT CARDIOMYOPATHY active 08799153 SNOME D-CT OBSTRUCTIVE SLEEP APNEA active 924793 09 SNOMED-CT HYPERTENSION active 11433184 SNOMED- CT ANXIETY active 98275350 SNOMED-CT ANGIOEDEMA 04/27/2023 resolved 65203746 SNOMED-C T Allergies and Adverse Reactions Allergy Substance Reaction Severity Start Date Concern Status Code Code System FUROSEMIDE Anaphylaxis (SNOMED-CT: 69815675) Active 4603 RxNorm NALOXONE Anaphylaxis (SNOMED-CT: 51162706) Active 7242 RxNorm HYDROCODONE Headache (SNOMED-CT: 02720165), NAUSEA (SNOMED-CT: 984700697), Nausea (SNOMED-CT: 948889168) Active 5489 RxNorm RITALIN Anaphylaxis (SNOMED-CT: 85956960) Active 740659 RxNorm ALMOND Anaphylaxis (SNOMED-CT: 93616693) 04/08/2018 Active 208601497 SNOMED-CT Plan of Treatment MM SCREEN BILAT 07/08/2023 MM SCREEN BILAT 05/12/2022 MM SCREEN BILAT 03/23/2022 MM SCREEN BILAT 12/02/2020 US ABDOMEN COMPLETE 10/06/2021 US ABDOMEN LIMITED 1 ORGAN 05/12/2022 US ABDOMEN LIMITED 1 ORGAN 03/18/2022 Encounters Encounter Diagnosis Start Date Code Code Sys tem Encounter for screening mamm ogram for malignant neoplasm of breast 05/12/2022 SNOMED-CT Personal Care Team Section Performer Name Performer Role Active Date Inactive Da parvin
--- OUTSIDE RECORDS SUMMARY | 2023-08-20 22:12 | XMS_ITS ---
Author Organization Unknown Address [address] [place] [address] [phone] Phone Care Team Providers Care Credit Control Officer Name Role Phone INDER PEDROZAOMI Ranjith Attending Unavailable MGIUEL TO Primary Unavailable Social History Type Status Start Date End Date Code Code Syst em Smoking History Former smoker 12/20/19971911 0546737 SNOMED CT Sex Female Medications Medication Start Date End Date Route Frequency Dose Code Code System Medication Instructions Home Meds Low Dose Aspirin 81MG Oral Tablet, Enteric Coated 04/11/2022 Unknown ORAL DAILY WITH FOOD 81 MILLIGRAMS 163514 RxNorm TAKE 81 MILLIGRAMS ORAL DAILY WITH FOOD Metoprolol Succinate 50MG Oral Tablet, Extended Release 04/11/2022 Unknown ORAL DAILY 50 MILLIGRAMS 241942 RxNorm TAKE 50 MILLIGRAMS ORAL DAILY Entresto 24MG-26MG Oral Tablet 04/11/2022 Unknown ORAL TWICE A DAY 1 TABLET 1747091 RxNorm TAKE 1 TABLET ORAL TWICE A DAY Albuterol Sulfate HFA 0.09MG/1Actua tion Inhalation Suspension 04/11/2022 Unknown INHALATIO N 1 unit(s) 3795552 RxNorm 1 EACH INHALATION Buprenorphine 2MG Sublingual Tablet 04/11/2022 Unknown SUBLINGUA L noon 2 MILLIGRAMS 022107 RxNorm DISSOLVE 2 MILLIGRAMS SUBLINGUAL noon Buprenorphine 2MG Sublingual Tablet 04/11/2022 Unknown SUBLINGUA L TWICE A DAY 4 MILLIGRAMS 440195 RxNorm DISSOLVE 4 MILLIGRAMS SUBLINGUAL TWICE A DAY Gabapentin 300MG Oral Capsule 04/11/2022 Unknown ORAL NEEDED TWICE DAILY 300 MILLIGRAMS 238186 RxNorm TAKE 300 MILLIGRAMS ORAL NEEDED TWICE DAILY Torsemide 20MG Oral Tablet 04/11/2022 Unknown ORAL DAILY 1 TABLET 746453 RxNorm TAKE 1 TABLET ORAL DAILY Doxycycline 100MG Oral Capsule 12/08/2022 04/27/19 24 ORAL TWICE A DAY 1 CAPSULE 1013117 RxNorm TAKE 1 CAPSULE ORAL TWICE A DAY Krysten Allergy 180MG Oral Tablet 04/28/2023 Unknown ORAL DAILY 180 MILLIGRAMS 674181 RxNorm TAKE 180 MILLIGRAMS ORAL DAILY Jardiance 10MG Oral Tablet 04/28/2023 Unknown ORAL DAILY 10 MILLIGRAMS 3852845 RxNorm TAKE 10 MILLIGRAMS ORAL DAILY Spironolacton e 25MG Oral Tablet 04/28/2023 Unknown ORAL DAILY 12.5 MILLIGRAMS 563076 RxNorm TAKE 12.5 MILLIGRAMS ORAL DAILY Potassium Chloride 10MEQ Oral Tablet, Extended Release 04/28/2023 Unknown ORAL DAILY 1 TABLET 791737 RxNorm TAKE 1 TABLET ORAL DAILY Assessment [...] Date Status Code Code System HYPOKALEMIA active 03950986 SNOMED-C T HYPOMAGNESEMIA active 618531735 SNOME D-CT CARDIOMYOPATHY active 61837723 SNOME D-CT OBSTRUCTIVE SLEEP APNEA active 023115 09 SNOMED-CT HYPERTENSION active 37770662 SNOMED- CT ANXIETY active 45721731 SNOMED-CT ANGIOEDEMA 04/27/2023 resolved 00841097 SNOMED-C T Allergies and Adverse Reactions Allergy Substance Reaction Severity Start Date Concern Status Code Code System FUROSEMIDE Anaphylaxis (SNOMED-CT: 28248304) Active 4603 RxNorm NALOXONE Anaphylaxis (SNOMED-CT: 26031320) Active 7242 RxNorm HYDROCODONE Headache (SNOMED-CT: 39003380), NAUSEA (SNOMED-CT: 160381462), Nausea (SNOMED-CT: 165094559) Active 5489 RxNorm RITALIN Anaphylaxis (SNOMED-CT: 55034605) Active 124795 RxNorm ALMOND Anaphylaxis (SNOMED-CT: 39486251) 04/08/2018 Active 817019551 SNOMED-CT Plan of Treatment MM SCREEN BILAT 07/08/2023 MM SCREEN BILAT 05/12/2022 MM SCREEN BILAT 03/23/2022 MM SCREEN BILAT 12/02/2020 US ABDOMEN COMPLETE 10/06/2021 US ABDOMEN LIMITED 1 ORGAN 05/12/2022 US ABDOMEN LIMITED 1 ORGAN 03/18/2022 Encounters Encounter Diagnosis Start Date Code Code Sys tem Obstructive sleep apnea syndrome 04/22/2022 67784924 SNOMED-CT Personal Care Team Section Performer Name Performer Role Active Date Inactive Da te
--- OUTSIDE RECORDS SUMMARY | 2023-08-20 22:12 | XMS_ITS ---
Author Organization Unknown Address [address] [place] [address] [phone] Phone Care Team Providers Care Granite Sandblaster Apprentice Name Role Phone JESICA Medrano Attending Unavailable MIGUEL SNELLILY Primary Unavailable Results CBC W/ DIFFERENTIAL* - Colle ct Date/Time: 04/13/2022 11:53 [facility] ID: [id number] [address] [place] [address], [address] LOINC: 45563-5 Test Value Unit Reference Range Code Code System Flag WBC 11.41 th/cmm L=5.00 H=10.00 6690-2 LOINC H NEUT % 63.9 % L=40.0 H=80.0 LYMPH % 24.6 % L=10.0 H=50.0 MONO % 8.6 % L=2.0 H=12.0 10560-0 LOINC EOS % 1.9 % L=0.0 H=8.0 BASO % 0.6 % L=0.0 H=3.0 IG % 0.4 % L=0.0 H=1.1 2514-8 LOINC NRBC % 0.0 % L=0.0 H=0.0 87706-5 LOINC NEUT abs count 7.3 th/cmm L=1.6 H=8.4 751-8 LOINC LYMPH abs count 2.8 th/cmm L=1.5 H=4.0 731-0 LOINC MONO abs count 1.0 th/cmm L=0.2 H=1.0 742-7 LOINC EOS abs count 0.2 th/cmm L=0.0 H=0.5 711-2 LOINC BASO abs count 0.1 th/cmm L=0.0 H=0.2 704-7 LOINC IG abs count 0.0 th/cmm L=0.0 H=0.1 67734-0 LOINC NRBC abs count 0.0 mil/cmm L=0.0 H=0.0 69585-9 LOINC RBC 4.99 mil/cmm L=3.90 H=5.40 789-8 LOINC HEMOGLOBIN 15.2 gm/dL L=12.0 H=16.0 718-7 LOINC HEMATOCRIT 47 % L=37 H=47 4544-3 LOINC MCV 94 fL L=82 H=92 787-2 LOINC H MCH 30.5 pg L=27.0 H=31.0 785-6 LOINC MCHC 32.4 % L=32.0 H=36.0 786-4 LOINC RDW-SD 44.8 fL L=39.0 H=49.0 788-0 LOINC PLATELET COUNT 366 th/cmm L=150 H=450 777-3 LOINC BNP (PRO-B NATRIURETIC PEPTI DE) - Collect Date/Time: 04/13/2022 11:53 [facility] ID: [id number] [address] [place] [address], [address] LOINC: 95791-1 Test Value Unit Reference Range Code Code System Flag NT-proBNP 371.0 pg/mL L=0.0 H=125 01052-8 LOINC H BASIC METABOLIC PANEL (BMP) - Collect Date/Time: 04/13/2022 11:53 [facility] ID: [id number] [address] [place] [address], [address] LOINC: 11025-5 Test Value Unit Reference Range Code Code System Flag GLUCOSE 128 mg/dL L=70 H=116 2345-7 LOINC H BUN 24 mg/dL L=6 H=25 3094-0 LOINC CREATININE 0.98 mg/dL L=0.51 H=0.95 2160-0 LOINC H SODIUM SERUM 136 mmol/L L=136 H=145 2951-2 LOINC POTASSIUM SERUM 4.9 mmol/L L=3.4 H=5.2 2823-3 [facility] CHLORIDE SERUM 100 mmol/L L=96 H=110 2075-0 [facility] CARBON DIOXIDE (CO2) 33 mmol/L L=22 H=34 8-9 [facility] ANION GAP 2.8 mmol/L 10294-8 [facility] CALCIUM SERUM 9.3 mg/dL L=8.2 H=10.2 97184-1 [facility] AGE 42 years eGFR (non-Afr.Amer.) 62 mL/min 18031-1 [facility] eGFR (Afr-Citizen Of [place]) 75 mL/min 41927-5 [facility] Social History Type Status Start Date End Date Code Code Syst em Smoking History Former smoker 12/20/19977955 0995376 SNOMED CT Sex Female Medications Medication Start Date End Date Route Frequency Dose Code Code System Medication Instructions Home Meds Low Dose Aspirin 81MG Oral Tablet, Enteric Coated 04/11/2022 Unknown ORAL DAILY WITH FOOD 81 MILLIGRAMS 793388 RxNorm TAKE 81 MILLIGRAMS ORAL DAILY WITH FOOD Metoprolol Succinate 50MG Oral Tablet, Extended Release 04/11/2022 Unknown ORAL DAILY 50 MILLIGRAMS 168344 RxNorm TAKE 50 MILLIGRAMS ORAL DAILY Entresto 24MG-26MG Oral Tablet 04/11/2022 Unknown ORAL TWICE A DAY 1 TABLET 3150476 RxNorm TAKE 1 TABLET ORAL TWICE A DAY Albuterol Sulfate HFA 0.09MG/1Actua tion Inhalation Suspension 04/11/2022 Unknown INHALATIO N 1 unit(s) 0170249 RxNorm 1 EACH INHALATION Buprenorphine 2MG Sublingual Tablet 04/11/2022 Unknown SUBLINGUA L noon 2 MILLIGRAMS 221783 RxNorm DISSOLVE 2 MILLIGRAMS SUBLINGUAL noon Buprenorphine 2MG Sublingual Tablet 04/11/2022 Unknown SUBLINGUA L TWICE A DAY 4 MILLIGRAMS 369949 RxNorm DISSOLVE 4 MILLIGRAMS SUBLINGUAL TWICE A DAY Gabapentin 300MG Oral Capsule 04/11/2022 Unknown ORAL NEEDED TWICE DAILY 300 MILLIGRAMS 541249 RxNorm TAKE 300 MILLIGRAMS ORAL NEEDED TWICE DAILY Torsemide 20MG Oral Tablet 04/11/2022 Unknown ORAL DAILY 1 TABLET 066496 RxNorm TAKE 1 TABLET ORAL DAILY Doxycycline 100MG Oral Capsule 12/08/2022 04/27/19 24 ORAL TWICE A DAY 1 CAPSULE 5898146 RxNorm TAKE 1 CAPSULE ORAL TWICE A DAY Krysten Allergy 180MG Oral Tablet 04/28/2023 Unknown ORAL DAILY 180 MILLIGRAMS 435135 RxNorm TAKE 180 MILLIGRAMS ORAL DAILY Jardiance 10MG Oral Tablet 04/28/2023 Unknown ORAL DAILY 10 MILLIGRAMS 4040183 RxNorm TAKE 10 MILLIGRAMS ORAL DAILY Spironolacton e 25MG Oral Tablet 04/28/2023 Unknown ORAL DAILY 12.5 MILLIGRAMS 375995 RxNorm TAKE 12.5 MILLIGRAMS ORAL DAILY Potassium Chloride 10MEQ Oral Tablet, Extended Release 04/28/2023 Unknown ORAL DAILY 1 TABLET 359619 RxNorm TAKE 1 TABLET ORAL DAILY Assessment [...] Date Status Code Code System HYPOKALEMIA active 29965737 SNOMED-C T HYPOMAGNESEMIA active 380189158 SNOME D-CT CARDIOMYOPATHY active 62511272 SNOME D-CT OBSTRUCTIVE SLEEP APNEA active 130737 09 SNOMED-CT HYPERTENSION active 93881667 SNOMED- CT ANXIETY active 39254554 SNOMED-CT ANGIOEDEMA 04/27/2023 resolved 86375382 SNOMED-C T Allergies and Adverse Reactions Allergy Substance Reaction Severity Start Date Concern Status Code Code System FUROSEMIDE Anaphylaxis (SNOMED-CT: 85474938) Active 4603 RxNorm NALOXONE Anaphylaxis (SNOMED-CT: 20189216) Active 7242 RxNorm HYDROCODONE Headache (SNOMED-CT: 33777953), NAUSEA (SNOMED-CT: 253067602), Nausea (SNOMED-CT: 475258152) Active 5489 RxNorm RITALIN Anaphylaxis (SNOMED-CT: 07911744) Active 802153 RxNorm ALMOND Anaphylaxis (SNOMED-CT: 44360854) 04/08/2018 Active 152930648 SNOMED-CT Plan of Treatment MM SCREEN BILAT 07/08/2023 MM SCREEN BILAT 05/12/2022 MM SCREEN BILAT 03/23/2022 MM SCREEN BILAT 12/02/2020 US ABDOMEN COMPLETE 10/06/2021 US ABDOMEN LIMITED 1 ORGAN 05/12/2022 US ABDOMEN LIMITED 1 ORGAN 03/18/2022 Encounters Encounter Diagnosis Start Date Code Code Sys tem Chest pain 04/13/2022 45649293 SNOMED-CT Personal Care Team Section Performer Name Performer Role Active Date Inactive Da te
--- OUTSIDE RECORDS SUMMARY | 2023-08-20 22:13 | XMS_ITS ---
Author Organization Unknown Address [address] [place] [address] [phone] Phone Care Team Providers Care Machine Shop Instructor Name Role Phone JESICA Medrano Attending Unavailable MIGUEL SNELLILY Primary Unavailable Social History Type Status Start Date End Date Code Code Syst em Smoking History Former smoker 12/20/19974105 7276099 SNOMED CT Sex Female Medications Medication Start Date End Date Route Frequency Dose Code Code System Medication Instructions Home Meds Low Dose Aspirin 81MG Oral Tablet, Enteric Coated 04/11/2022 Unknown ORAL DAILY WITH FOOD 81 MILLIGRAMS 373831 RxNorm TAKE 81 MILLIGRAMS ORAL DAILY WITH FOOD Metoprolol Succinate 50MG Oral Tablet, Extended Release 04/11/2022 Unknown ORAL DAILY 50 MILLIGRAMS 126904 RxNorm TAKE 50 MILLIGRAMS ORAL DAILY Entresto 24MG-26MG Oral Tablet 04/11/2022 Unknown ORAL TWICE A DAY 1 TABLET 4141389 RxNorm TAKE 1 TABLET ORAL TWICE A DAY Albuterol Sulfate HFA 0.09MG/1Actua tion Inhalation Suspension 04/11/2022 Unknown INHALATIO N 1 unit(s) 7027309 RxNorm 1 EACH INHALATION Buprenorphine 2MG Sublingual Tablet 04/11/2022 Unknown SUBLINGUA L noon 2 MILLIGRAMS 926251 RxNorm DISSOLVE 2 MILLIGRAMS SUBLINGUAL noon Buprenorphine 2MG Sublingual Tablet 04/11/2022 Unknown SUBLINGUA L TWICE A DAY 4 MILLIGRAMS 565023 RxNorm DISSOLVE 4 MILLIGRAMS SUBLINGUAL TWICE A DAY Gabapentin 300MG Oral Capsule 04/11/2022 Unknown ORAL NEEDED TWICE DAILY 300 MILLIGRAMS 481535 RxNorm TAKE 300 MILLIGRAMS ORAL NEEDED TWICE DAILY Torsemide 20MG Oral Tablet 04/11/2022 Unknown ORAL DAILY 1 TABLET 467568 RxNorm TAKE 1 TABLET ORAL DAILY Doxycycline 100MG Oral Capsule 12/08/2022 04/27/19 24 ORAL TWICE A DAY 1 CAPSULE 9916256 RxNorm TAKE 1 CAPSULE ORAL TWICE A DAY Krysten Allergy 180MG Oral Tablet 04/28/2023 Unknown ORAL DAILY 180 MILLIGRAMS 633322 RxNorm TAKE 180 MILLIGRAMS ORAL DAILY Jardiance 10MG Oral Tablet 04/28/2023 Unknown ORAL DAILY 10 MILLIGRAMS 3918052 RxNorm TAKE 10 MILLIGRAMS ORAL DAILY Spironolacton e 25MG Oral Tablet 04/28/2023 Unknown ORAL DAILY 12.5 MILLIGRAMS 800803 RxNorm TAKE 12.5 MILLIGRAMS ORAL DAILY Potassium Chloride 10MEQ Oral Tablet, Extended Release 04/28/2023 Unknown ORAL DAILY 1 TABLET 545630 RxNorm TAKE 1 TABLET ORAL DAILY Assessment [...] Date Status Code Code System HYPOKALEMIA active 32796241 SNOMED-C T HYPOMAGNESEMIA active 868620302 SNOME D-CT CARDIOMYOPATHY active 68007936 SNOME D-CT OBSTRUCTIVE SLEEP APNEA active 719377 09 SNOMED-CT HYPERTENSION active 37108047 SNOMED- CT ANXIETY active 29818734 SNOMED-CT ANGIOEDEMA 04/27/2023 resolved 87909348 SNOMED-C T Allergies and Adverse Reactions Allergy Substance Reaction Severity Start Date Concern Status Code Code System FUROSEMIDE Anaphylaxis (SNOMED-CT: 66484333) Active 4603 RxNorm NALOXONE Anaphylaxis (SNOMED-CT: 92546779) Active 7242 RxNorm HYDROCODONE Headache (SNOMED-CT: 56893608), NAUSEA (SNOMED-CT: 894287662), Nausea (SNOMED-CT: 116407052) Active 5489 RxNorm RITALIN Anaphylaxis (SNOMED-CT: 03274097) Active 673213 RxNorm ALMOND Anaphylaxis (SNOMED-CT: 08791800) 04/08/2018 Active 409314346 SNOMED-CT Plan of Treatment MM SCREEN BILAT 07/08/2023 MM SCREEN BILAT 05/12/2022 MM SCREEN BILAT 03/23/2022 MM SCREEN BILAT 12/02/2020 US ABDOMEN COMPLETE 10/06/2021 US ABDOMEN LIMITED 1 ORGAN 05/12/2022 US ABDOMEN LIMITED 1 ORGAN 03/18/2022 Encounters Encounter Diagnosis Start Date Code Code Sys tem Cardiomyopathy, unspecified 07/27/2022 SNOMED-CT Personal Care Team Section Performer Name Performer Role Active Date Inactive Da te
--- OUTSIDE RECORDS SUMMARY | 2023-08-20 22:13 | XMS_ITS ---
Author Organization Unknown Address [address] [place] [address] [phone] Phone Care Team Providers Care Computer Systems Designer Name Role Phone INDER PEDROZAOMI Ranjith Attending Unavailable MIGUEL TO Primary Unavailable Social History Type Status Start Date End Date Code Code Syst em Smoking History Former smoker 12/20/199720[address] Sex Female Medications Medication Start Date End Date Route Frequency Dose Code Code System Medication Instructions Home Meds Low Dose Aspirin 81MG Oral Tablet, Enteric Coated 04/11/2022 Unknown ORAL DAILY WITH FOOD 81 MILLIGRAMS 710310 RxNorm TAKE 81 MILLIGRAMS ORAL DAILY WITH FOOD Metoprolol Succinate 50MG Oral Tablet, Extended Release 04/11/2022 Unknown ORAL DAILY 50 MILLIGRAMS 642464 RxNorm TAKE 50 MILLIGRAMS ORAL DAILY Entresto 24MG-26MG Oral Tablet 04/11/2022 Unknown ORAL TWICE A DAY 1 TABLET 4436388 RxNorm TAKE 1 TABLET ORAL TWICE A DAY Albuterol Sulfate HFA 0.09MG/1Actua tion Inhalation Suspension 04/11/2022 Unknown INHALATIO N 1 unit(s) 5344721 RxNorm 1 EACH INHALATION Buprenorphine 2MG Sublingual Tablet 04/11/2022 Unknown SUBLINGUA L noon 2 MILLIGRAMS 533800 RxNorm DISSOLVE 2 MILLIGRAMS SUBLINGUAL noon Buprenorphine 2MG Sublingual Tablet 04/11/2022 Unknown SUBLINGUA L TWICE A DAY 4 MILLIGRAMS 373758 RxNorm DISSOLVE 4 MILLIGRAMS SUBLINGUAL TWICE A DAY Gabapentin 300MG Oral Capsule 04/11/2022 Unknown ORAL NEEDED TWICE DAILY 300 MILLIGRAMS 657319 RxNorm TAKE 300 MILLIGRAMS ORAL NEEDED TWICE DAILY Torsemide 20MG Oral Tablet 04/11/2022 Unknown ORAL DAILY 1 TABLET 279996 RxNorm TAKE 1 TABLET ORAL DAILY Doxycycline 100MG Oral Capsule 12/08/2022 04/27/19 24 ORAL TWICE A DAY 1 CAPSULE 1364504 RxNorm TAKE 1 CAPSULE ORAL TWICE A DAY Krysten Allergy 180MG Oral Tablet 04/28/2023 Unknown ORAL DAILY 180 MILLIGRAMS 932708 RxNorm TAKE 180 MILLIGRAMS ORAL DAILY Jardiance 10MG Oral Tablet 04/28/2023 Unknown ORAL DAILY 10 MILLIGRAMS 3401835 RxNorm TAKE 10 MILLIGRAMS ORAL DAILY Spironolacton e 25MG Oral Tablet 04/28/2023 Unknown ORAL DAILY 12.5 MILLIGRAMS 554123 RxNorm TAKE 12.5 MILLIGRAMS ORAL DAILY Potassium Chloride 10MEQ Oral Tablet, Extended Release 04/28/2023 Unknown ORAL DAILY 1 TABLET 737089 RxNorm TAKE 1 TABLET ORAL DAILY Assessment [...] Date Status Code Code System HYPOKALEMIA active 07219305 SNOMED-C T HYPOMAGNESEMIA active 721637591 SNOME D-CT CARDIOMYOPATHY active 15111334 SNOME D-CT OBSTRUCTIVE SLEEP APNEA active 677347 09 SNOMED-CT HYPERTENSION active 18938580 SNOMED- CT ANXIETY active 75068543 SNOMED-CT ANGIOEDEMA 04/27/2023 resolved 71159990 SNOMED-C T Allergies and Adverse Reactions Allergy Substance Reaction Severity Start Date Concern Status Code Code System FUROSEMIDE Anaphylaxis (SNOMED-CT: 05315406) Active 4603 RxNorm NALOXONE Anaphylaxis (SNOMED-CT: 82128425) Active 7242 RxNorm HYDROCODONE Headache (SNOMED-CT: 21546253), NAUSEA (SNOMED-CT: 809191456), Nausea (SNOMED-CT: 639413996) Active 5489 RxNorm RITALIN Anaphylaxis (SNOMED-CT: 41466625) Active 690613 RxNorm ALMOND Anaphylaxis (SNOMED-CT: 05778691) 04/08/2018 Active 208726759 SNOMED-CT Plan of Treatment MM SCREEN BILAT 07/08/2023 MM SCREEN BILAT 05/12/2022 MM SCREEN BILAT 03/23/2022 MM SCREEN BILAT 12/02/2020 US ABDOMEN COMPLETE 10/06/2021 US ABDOMEN LIMITED 1 ORGAN 05/12/2022 US ABDOMEN LIMITED 1 ORGAN 03/18/2022 Encounters Encounter Diagnosis Start Date Code Code Sys tem Refusal of treatment by patient 05/28/2022 903113621 SNOMED-CT Personal Care Team Section Performer Name Performer Role Active Date Inactive Da te
--- OUTSIDE RECORDS SUMMARY | 2023-08-20 22:13 | XMS_ITS ---
Author Organization Unknown Address [address] [place] [address] [phone] Phone Care Team Providers Care Finishing Manager Name Role Phone JESICA Medrano Attending Unavailable MIGUEL SNELLILY Primary Unavailable Social History Type Status Start Date End Date Code Code Syst em Smoking History Former smoker 12/20/19979061 8729350 SNOMED CT Sex Female Medications Medication Start Date End Date Route Frequency Dose Code Code System Medication Instructions Home Meds Low Dose Aspirin 81MG Oral Tablet, Enteric Coated 04/11/2022 Unknown ORAL DAILY WITH FOOD 81 MILLIGRAMS 010978 RxNorm TAKE 81 MILLIGRAMS ORAL DAILY WITH FOOD Metoprolol Succinate 50MG Oral Tablet, Extended Release 04/11/2022 Unknown ORAL DAILY 50 MILLIGRAMS 709604 RxNorm TAKE 50 MILLIGRAMS ORAL DAILY Entresto 24MG-26MG Oral Tablet 04/11/2022 Unknown ORAL TWICE A DAY 1 TABLET 2894060 RxNorm TAKE 1 TABLET ORAL TWICE A DAY Albuterol Sulfate HFA 0.09MG/1Actua tion Inhalation Suspension 04/11/2022 Unknown INHALATIO N 1 unit(s) 7281177 RxNorm 1 EACH INHALATION Buprenorphine 2MG Sublingual Tablet 04/11/2022 Unknown SUBLINGUA L noon 2 MILLIGRAMS 155915 RxNorm DISSOLVE 2 MILLIGRAMS SUBLINGUAL noon Buprenorphine 2MG Sublingual Tablet 04/11/2022 Unknown SUBLINGUA L TWICE A DAY 4 MILLIGRAMS 929535 RxNorm DISSOLVE 4 MILLIGRAMS SUBLINGUAL TWICE A DAY Gabapentin 300MG Oral Capsule 04/11/2022 Unknown ORAL NEEDED TWICE DAILY 300 MILLIGRAMS 024656 RxNorm TAKE 300 MILLIGRAMS ORAL NEEDED TWICE DAILY Torsemide 20MG Oral Tablet 04/11/2022 Unknown ORAL DAILY 1 TABLET 651098 RxNorm TAKE 1 TABLET ORAL DAILY Doxycycline 100MG Oral Capsule 12/08/2022 04/27/19 24 ORAL TWICE A DAY 1 CAPSULE 1071215 RxNorm TAKE 1 CAPSULE ORAL TWICE A DAY Krysten Allergy 180MG Oral Tablet 04/28/2023 Unknown ORAL DAILY 180 MILLIGRAMS 134054 RxNorm TAKE 180 MILLIGRAMS ORAL DAILY Jardiance 10MG Oral Tablet 04/28/2023 Unknown ORAL DAILY 10 MILLIGRAMS 2632631 RxNorm TAKE 10 MILLIGRAMS ORAL DAILY Spironolacton e 25MG Oral Tablet 04/28/2023 Unknown ORAL DAILY 12.5 MILLIGRAMS 950151 RxNorm TAKE 12.5 MILLIGRAMS ORAL DAILY Potassium Chloride 10MEQ Oral Tablet, Extended Release 04/28/2023 Unknown ORAL DAILY 1 TABLET 337070 RxNorm TAKE 1 TABLET ORAL DAILY Assessment You had the following problems:HYPOKALEMIAHYPOMAGNESEMIACARDIOMYOPATHYOBSTRUCTIVE SLEEP APNEAHYPERTENSIONANXIETY Hospital Discharge Instructions Should you have any questions prior to discharge, please contact a member of your healthcare team. If you have left the hospital and have any questions, please contact your primary care physician. Reason For Referral No Data Found Procedures Procedure Name Date Status Code Code Syste m External Electrocardiographi c Recording >7 To 15 Days Continuous Rhythm Record/Store; Review/Interp 07/22/2022 completed 25156 CPT Problems Problem Start Date Resolved Date Status Code Code System HYPOKALEMIA active 93086749 SNOMED-C T HYPOMAGNESEMIA active 380044532 SNOME D-CT CARDIOMYOPATHY active 89565788 SNOME D-CT OBSTRUCTIVE SLEEP APNEA active 768823 09 SNOMED-CT HYPERTENSION active 47725272 SNOMED- CT ANXIETY active 56119764 SNOMED-CT ANGIOEDEMA 04/27/2023 resolved 81262040 SNOMED-C T Allergies and Adverse Reactions Allergy Substance Reaction Severity Start Date Concern Status Code Code System FUROSEMIDE Anaphylaxis (SNOMED-CT: 35905538) Active 4603 RxNorm NALOXONE Anaphylaxis (SNOMED-CT: 70511995) Active 7242 RxNorm HYDROCODONE Headache (SNOMED-CT: 94734568), NAUSEA (SNOMED-CT: 538627622), Nausea (SNOMED-CT: 137767009) Active 5452 RxNorm RITALIN Anaphylaxis (SNOMED-CT: 15507393) Active 468341 RxNorm ALMOND Anaphylaxis (SNOMED-CT: 91016718) 04/08/2018 Active 091455336 SNOMED-CT Plan of Treatment MM SCREEN BILAT 07/08/2023 MM SCREEN BILAT 05/12/2022 MM SCREEN BILAT 03/23/2022 MM SCREEN BILAT 12/02/2020 US ABDOMEN COMPLETE 10/06/2021 US ABDOMEN LIMITED 1 ORGAN 05/12/2022 US ABDOMEN LIMITED 1 ORGAN 03/18/2022 Encounters Encounter Diagnosis Start Date Code Code Sys tem Ventricular tachycardia, unspecified 07/22/2022 SNOMED-CT Personal Care Team Section Performer Name Performer Role Active Date Inactive Da te
--- OUTSIDE RECORDS SUMMARY | 2023-08-20 22:13 | XMS_ITS ---
Author Organization Unknown Address [address] [place] [address] [phone] Phone Care Team Providers Care Cultural Anthropology Professor Name Role Phone JESICA Medrano Attending Unavailable MIGUEL SNELLILY Primary Unavailable Social History Type Status Start Date End Date Code Code Syst em Smoking History Former smoker 12/20/19974732 8632583 SNOMED CT Sex Female Medications Medication Start Date End Date Route Frequency Dose Code Code System Medication Instructions Home Meds Low Dose Aspirin 81MG Oral Tablet, Enteric Coated 04/11/2022 Unknown ORAL DAILY WITH FOOD 81 MILLIGRAMS 005056 RxNorm TAKE 81 MILLIGRAMS ORAL DAILY WITH FOOD Metoprolol Succinate 50MG Oral Tablet, Extended Release 04/11/2022 Unknown ORAL DAILY 50 MILLIGRAMS 560467 RxNorm TAKE 50 MILLIGRAMS ORAL DAILY Entresto 24MG-26MG Oral Tablet 04/11/2022 Unknown ORAL TWICE A DAY 1 TABLET 1590357 RxNorm TAKE 1 TABLET ORAL TWICE A DAY Albuterol Sulfate HFA 0.09MG/1Actua tion Inhalation Suspension 04/11/2022 Unknown INHALATIO N 1 unit(s) 4482797 RxNorm 1 EACH INHALATION Buprenorphine 2MG Sublingual Tablet 04/11/2022 Unknown SUBLINGUA L noon 2 MILLIGRAMS 504482 RxNorm DISSOLVE 2 MILLIGRAMS SUBLINGUAL noon Buprenorphine 2MG Sublingual Tablet 04/11/2022 Unknown SUBLINGUA L TWICE A DAY 4 MILLIGRAMS 378143 RxNorm DISSOLVE 4 MILLIGRAMS SUBLINGUAL TWICE A DAY Gabapentin 300MG Oral Capsule 04/11/2022 Unknown ORAL NEEDED TWICE DAILY 300 MILLIGRAMS 447853 RxNorm TAKE 300 MILLIGRAMS ORAL NEEDED TWICE DAILY Torsemide 20MG Oral Tablet 04/11/2022 Unknown ORAL DAILY 1 TABLET 805271 RxNorm TAKE 1 TABLET ORAL DAILY Doxycycline 100MG Oral Capsule 12/08/2022 04/27/19 24 ORAL TWICE A DAY 1 CAPSULE 5364261 RxNorm TAKE 1 CAPSULE ORAL TWICE A DAY Krysten Allergy 180MG Oral Tablet 04/28/2023 Unknown ORAL DAILY 180 MILLIGRAMS 781009 RxNorm TAKE 180 MILLIGRAMS ORAL DAILY Jardiance 10MG Oral Tablet 04/28/2023 Unknown ORAL DAILY 10 MILLIGRAMS 8725860 RxNorm TAKE 10 MILLIGRAMS ORAL DAILY Spironolacton e 25MG Oral Tablet 04/28/2023 Unknown ORAL DAILY 12.5 MILLIGRAMS 239614 RxNorm TAKE 12.5 MILLIGRAMS ORAL DAILY Potassium Chloride 10MEQ Oral Tablet, Extended Release 04/28/2023 Unknown ORAL DAILY 1 TABLET 908817 RxNorm TAKE 1 TABLET ORAL DAILY Assessment [...] Date Status Code Code System HYPOKALEMIA active 94629914 SNOMED-C T HYPOMAGNESEMIA active 174206831 SNOME D-CT CARDIOMYOPATHY active 12979920 SNOME D-CT OBSTRUCTIVE SLEEP APNEA active 478354 09 SNOMED-CT HYPERTENSION active 22094545 SNOMED- CT ANXIETY active 19675734 SNOMED-CT ANGIOEDEMA 04/27/2023 resolved 34422989 SNOMED-C T Allergies and Adverse Reactions Allergy Substance Reaction Severity Start Date Concern Status Code Code System FUROSEMIDE Anaphylaxis (SNOMED-CT: 96249777) Active 4603 RxNorm NALOXONE Anaphylaxis (SNOMED-CT: 89077765) Active 7242 RxNorm HYDROCODONE Headache (SNOMED-CT: 79967940), NAUSEA (SNOMED-CT: 140211331), Nausea (SNOMED-CT: 768514383) Active 5489 RxNorm RITALIN Anaphylaxis (SNOMED-CT: 81884407) Active 858352 RxNorm ALMOND Anaphylaxis (SNOMED-CT: 28956718) 04/08/2018 Active 241982566 SNOMED-CT Plan of Treatment MM SCREEN BILAT 07/08/2023 MM SCREEN BILAT 05/12/2022 MM SCREEN BILAT 03/23/2022 MM SCREEN BILAT 12/02/2020 US ABDOMEN COMPLETE 10/06/2021 US ABDOMEN LIMITED 1 ORGAN 05/12/2022 US ABDOMEN LIMITED 1 ORGAN 03/18/2022 Encounters Encounter Diagnosis Start Date Code Code Sys tem Cardiomyopathy 06/11/2022 24357756 SNOMED-CT Personal Care Team Section Performer Name Performer Role Active Date Inactive Da te
--- OUTSIDE RECORDS SUMMARY | 2023-08-20 22:14 | XMS_ITS ---
Author Organization Unknown Address [address] [place] [address] [phone] Phone Care Team Providers Care Piece Meat Trimmer Name Role Phone RODOLFO LACY Registered Nurse Bianca CONTRERAS Attending Unavailable MIGUEL TO Primary Unavailable UNLISTED PROVIDER - REQUESTED Xhandoff Un available Social History Type Status Start Date End Date Code Code Syst em Smoking History Former smoker 12/20/19975023 5339539 SNOMED [address] Sex Female Vital Signs Vital Sign Value Unit [place] Value [place] Unit Date/Time Recent/Initial? Code Code System Body Mass Index 37.20 kg/m2 09/07/2022 11:07 Initial 85052 -5 LOINC Systolic Blood Pressure 132 mm[Hg] 09/07/2022 12:33 Most Recent 8480- 6 LOINC Diastolic Blood Pressure 84 mm[Hg] 09/07/2022 12:33 Most Recent 8462- 4 LOINC Systolic Blood Pressure 124 mm[Hg] 09/07/2022 11:07 Initial 8480- 6 LOINC Diastolic Blood Pressure 61 mm[Hg] 09/07/2022 11:07 Initial 8462- 4 LOINC Body Surface Area 2.06 m2 09/07/2022 11:07 Initial 3140- 1 LOINC Height 160.020 0 cm 63.00 in 09/07/2022 11:07 Initial 8302- 2 LOINC O2 Saturation 98 % 2022 12:33 Most Recent 31378 -5 LOINC O2 Saturation 96 % 2022 11:07 Initial 07096 -5 LOINC Pulse 80.0 /min 09/07/2022 12:33 Most Recent 8867- 4 LOINC Pulse 89.0 /min 09/07/2022 11:07 Initial 8867- 4 LOINC Respiration 16 /min 09/08/19 12:33 Most Recent 9279- 1 [facility] Respiration 18 /min 09/08/19 11:07 Initial 9279- 1 [facility] Temperature 36.3 Hannah 97.3 F 09/08/19 12:33 Most Recent 8310- 5 [facility] Temperature 36.6 Hannah 97.9 F 09/08/19 11:07 Initial 8310- 5 [facility] Weight 95.25 kg 210.00 lbs 09/07/2022 11:07 Initial 65361 -7 [facility] Medications Medication Start Date End Date Route Frequency Dose Code Code System Medication Instructions Home Meds Low Dose Aspirin 81MG Oral Tablet, Enteric Coated 04/11/2022 Unknown ORAL DAILY WITH FOOD 81 MILLIGRAMS 142880 RxNorm TAKE 81 MILLIGRAMS ORAL DAILY WITH FOOD Metoprolol Succinate 50MG Oral Tablet, Extended Release 04/11/2022 Unknown ORAL DAILY 50 MILLIGRAMS 349601 RxNorm TAKE 50 MILLIGRAMS ORAL DAILY Entresto 24MG-26MG Oral Tablet 04/11/2022 Unknown ORAL TWICE A DAY 1 TABLET 4095659 RxNorm TAKE 1 TABLET ORAL TWICE A DAY Albuterol Sulfate HFA 0.09MG/1Actua tion Inhalation Suspension 04/11/2022 Unknown INHALATIO N 1 unit(s) 2887583 RxNorm 1 EACH INHALATION Buprenorphine 2MG Sublingual Tablet 04/11/2022 Unknown SUBLINGUA L noon 2 MILLIGRAMS 074527 RxNorm DISSOLVE 2 MILLIGRAMS SUBLINGUAL noon Buprenorphine 2MG Sublingual Tablet 04/11/2022 Unknown SUBLINGUA L TWICE A DAY 4 MILLIGRAMS 038826 RxNorm DISSOLVE 4 MILLIGRAMS SUBLINGUAL TWICE A DAY Gabapentin 300MG Oral Capsule 04/11/2022 Unknown ORAL NEEDED TWICE DAILY 300 MILLIGRAMS 378357 RxNorm TAKE 300 MILLIGRAMS ORAL NEEDED TWICE DAILY Torsemide 20MG Oral Tablet 04/11/2022 Unknown ORAL DAILY 1 TABLET 678813 RxNorm TAKE 1 TABLET ORAL DAILY Doxycycline 100MG Oral Capsule 12/08/2022 04/27/19 24 ORAL TWICE A DAY 1 CAPSULE 9416582 RxNorm TAKE 1 CAPSULE ORAL TWICE A DAY Krysten Allergy 180MG Oral Tablet 04/28/2023 Unknown ORAL DAILY 180 MILLIGRAMS 096511 RxNorm TAKE 180 MILLIGRAMS ORAL DAILY Jardiance 10MG Oral Tablet 04/28/2023 Unknown ORAL DAILY 10 MILLIGRAMS 8309725 RxNorm TAKE 10 MILLIGRAMS ORAL DAILY Spironolacton e 25MG Oral Tablet 04/28/2023 Unknown ORAL DAILY 12.5 MILLIGRAMS 300886 RxNorm TAKE 12.5 MILLIGRAMS ORAL DAILY Potassium Chloride 10MEQ Oral Tablet, Extended Release 04/28/2023 Unknown ORAL DAILY 1 TABLET 402106 RxNorm TAKE 1 TABLET ORAL DAILY Assessment [...] Date Status Code Code System HYPOKALEMIA active 37614377 SNOMED-C T HYPOMAGNESEMIA active 816371122 SNOME D-CT CARDIOMYOPATHY active 55851956 SNOME D-CT OBSTRUCTIVE SLEEP APNEA active 736142 09 SNOMED-CT HYPERTENSION active 44389317 SNOMED- CT ANXIETY active 35282153 SNOMED-CT ANGIOEDEMA 04/27/2023 resolved 65311223 SNOMED-C T Allergies and Adverse Reactions Allergy Substance Reaction Severity Start Date Concern Status Code Code System FUROSEMIDE Anaphylaxis (SNOMED-CT: 64767549) Active 4603 RxNorm NALOXONE Anaphylaxis (SNOMED-CT: 33298671) Active 7242 RxNorm HYDROCODONE Headache (SNOMED-CT: 02959044), NAUSEA (SNOMED-CT: 022931224), Nausea (SNOMED-CT: 172562780) Active 5489 RxNorm RITALIN Anaphylaxis (SNOMED-CT: 28173999) Active 768623 RxNorm ALMOND Anaphylaxis (SNOMED-CT: 42244900) 04/08/2018 Active 410007585 SNOMED-CT Plan of Treatment MM SCREEN BILAT 07/08/2023 MM SCREEN BILAT 05/12/2022 MM SCREEN BILAT 03/23/2022 MM SCREEN BILAT 12/02/2020 US ABDOMEN COMPLETE 10/06/2021 US ABDOMEN LIMITED 1 ORGAN 05/12/2022 US ABDOMEN LIMITED 1 ORGAN 03/18/2022 Encounters Encounter Diagnosis Start Date Code Code Sys tem Abrasion of cornea of right eye 09/07/2022 316417729 99996579 SNOMED-CT Personal Care Team Section Performer Name Performer Role Active Date Inactive Da te
--- OUTSIDE RECORDS SUMMARY | 2023-08-20 22:14 | XMS_ITS ---
Author Organization Unknown Address [address] [place] [address] [phone] Phone Care Team Providers Care Supervisor Cutting And Boning Name Role Phone JESICA Medrano Attending Unavailable MIGUEL SNELLILY Primary Unavailable Social History Type Status Start Date End Date Code Code Syst em Smoking History Former smoker 12/20/19978017 3265710 SNOMED CT Sex Female Medications Medication Start Date End Date Route Frequency Dose Code Code System Medication Instructions Home Meds Low Dose Aspirin 81MG Oral Tablet, Enteric Coated 04/11/2022 Unknown ORAL DAILY WITH FOOD 81 MILLIGRAMS 898077 RxNorm TAKE 81 MILLIGRAMS ORAL DAILY WITH FOOD Metoprolol Succinate 50MG Oral Tablet, Extended Release 04/11/2022 Unknown ORAL DAILY 50 MILLIGRAMS 313811 RxNorm TAKE 50 MILLIGRAMS ORAL DAILY Entresto 24MG-26MG Oral Tablet 04/11/2022 Unknown ORAL TWICE A DAY 1 TABLET 1233178 RxNorm TAKE 1 TABLET ORAL TWICE A DAY Albuterol Sulfate HFA 0.09MG/1Actua tion Inhalation Suspension 04/11/2022 Unknown INHALATIO N 1 unit(s) 6094827 RxNorm 1 EACH INHALATION Buprenorphine 2MG Sublingual Tablet 04/11/2022 Unknown SUBLINGUA L noon 2 MILLIGRAMS 851282 RxNorm DISSOLVE 2 MILLIGRAMS SUBLINGUAL noon Buprenorphine 2MG Sublingual Tablet 04/11/2022 Unknown SUBLINGUA L TWICE A DAY 4 MILLIGRAMS 264960 RxNorm DISSOLVE 4 MILLIGRAMS SUBLINGUAL TWICE A DAY Gabapentin 300MG Oral Capsule 04/11/2022 Unknown ORAL NEEDED TWICE DAILY 300 MILLIGRAMS 464198 RxNorm TAKE 300 MILLIGRAMS ORAL NEEDED TWICE DAILY Torsemide 20MG Oral Tablet 04/11/2022 Unknown ORAL DAILY 1 TABLET 017301 RxNorm TAKE 1 TABLET ORAL DAILY Doxycycline 100MG Oral Capsule 12/08/2022 04/27/19 24 ORAL TWICE A DAY 1 CAPSULE 3650767 RxNorm TAKE 1 CAPSULE ORAL TWICE A DAY Krysten Allergy 180MG Oral Tablet 04/28/2023 Unknown ORAL DAILY 180 MILLIGRAMS 960474 RxNorm TAKE 180 MILLIGRAMS ORAL DAILY Jardiance 10MG Oral Tablet 04/28/2023 Unknown ORAL DAILY 10 MILLIGRAMS 6314336 RxNorm TAKE 10 MILLIGRAMS ORAL DAILY Spironolacton e 25MG Oral Tablet 04/28/2023 Unknown ORAL DAILY 12.5 MILLIGRAMS 667489 RxNorm TAKE 12.5 MILLIGRAMS ORAL DAILY Potassium Chloride 10MEQ Oral Tablet, Extended Release 04/28/2023 Unknown ORAL DAILY 1 TABLET 997212 RxNorm TAKE 1 TABLET ORAL DAILY Assessment [...] Date Status Code Code System HYPOKALEMIA active 05453710 SNOMED-C T HYPOMAGNESEMIA active 497969886 SNOME D-CT CARDIOMYOPATHY active 68015980 SNOME D-CT OBSTRUCTIVE SLEEP APNEA active 274756 09 SNOMED-CT HYPERTENSION active 71805094 SNOMED- CT ANXIETY active 31607979 SNOMED-CT ANGIOEDEMA 04/27/2023 resolved 02249039 SNOMED-C T Allergies and Adverse Reactions Allergy Substance Reaction Severity Start Date Concern Status Code Code System FUROSEMIDE Anaphylaxis (SNOMED-CT: 27224085) Active 4603 RxNorm NALOXONE Anaphylaxis (SNOMED-CT: 13791150) Active 7242 RxNorm HYDROCODONE Headache (SNOMED-CT: 86139154), NAUSEA (SNOMED-CT: 861164022), Nausea (SNOMED-CT: 057729630) Active 5489 RxNorm RITALIN Anaphylaxis (SNOMED-CT: 71717453) Active 616491 RxNorm ALMOND Anaphylaxis (SNOMED-CT: 41016748) 04/08/2018 Active 713759277 SNOMED-CT Plan of Treatment MM SCREEN BILAT 07/08/2023 MM SCREEN BILAT 05/12/2022 MM SCREEN BILAT 03/23/2022 MM SCREEN BILAT 12/02/2020 US ABDOMEN COMPLETE 10/06/2021 US ABDOMEN LIMITED 1 ORGAN 05/12/2022 US ABDOMEN LIMITED 1 ORGAN 03/18/2022 Encounters Encounter Diagnosis Start Date Code Code Sys tem Cardiomyopathy, unspecified 09/28/2022 SNOMED-CT Personal Care Team Section Performer Name Performer Role Active Date Inactive Da te
--- OUTSIDE RECORDS SUMMARY | 2023-08-20 22:15 | XMS_ITS ---
Author Organization Unknown Address [address] [place] [address] [phone] Phone Care Team Providers Care Free Lance Artist Name Role Phone ISH CARLOS MANUEL Attending Unavailable Results POTASSIUM SERUM - Collect Da te/Time: 04/27/2023 17:34 [facility] ID: [id number] [place], [place], [id number] LOINC: 2823-3 Test Value Unit Reference Range Code Code System Flag POTASSIUM SERUM 2.9 mmol/L L=3.4 H=5.2 2823-3 LOINC LL Social History Type Status Start Date End Date Code Code Syst em Smoking History Former smoker 12/20/19976154 6012882 SNOMED CT Sex Female Medications Medication Start Date End Date Route Frequency Dose Code Code System Medication Instructions Home Meds Low Dose Aspirin 81MG Oral Tablet, Enteric Coated 04/11/2022 Unknown ORAL DAILY WITH FOOD 81 MILLIGRAMS 240831 RxNorm TAKE 81 MILLIGRAMS ORAL DAILY WITH FOOD Metoprolol Succinate 50MG Oral Tablet, Extended Release 04/11/2022 Unknown ORAL DAILY 50 MILLIGRAMS 507311 RxNorm TAKE 50 MILLIGRAMS ORAL DAILY Entresto 24MG-26MG Oral Tablet 04/11/2022 Unknown ORAL TWICE A DAY 1 TABLET 8106360 RxNorm TAKE 1 TABLET ORAL TWICE A DAY Albuterol Sulfate HFA 0.09MG/1Actua tion Inhalation Suspension 04/11/2022 Unknown INHALATIO N 1 unit(s) 1320220 RxNorm 1 EACH INHALATION Buprenorphine 2MG Sublingual Tablet 04/11/2022 Unknown SUBLINGUA L noon 2 MILLIGRAMS 124115 RxNorm DISSOLVE 2 MILLIGRAMS SUBLINGUAL noon Buprenorphine 2MG Sublingual Tablet 04/11/2022 Unknown SUBLINGUA L TWICE A DAY 4 MILLIGRAMS 886881 RxNorm DISSOLVE 4 MILLIGRAMS SUBLINGUAL TWICE A DAY Gabapentin 300MG Oral Capsule 04/11/2022 Unknown ORAL NEEDED TWICE DAILY 300 MILLIGRAMS 509942 RxNorm TAKE 300 MILLIGRAMS ORAL NEEDED TWICE DAILY Torsemide 20MG Oral Tablet 04/11/2022 Unknown ORAL DAILY 1 TABLET 822125 RxNorm TAKE 1 TABLET ORAL DAILY Doxycycline 100MG Oral Capsule 12/08/2022 04/27/19 24 ORAL TWICE A DAY 1 CAPSULE 3832191 RxNorm TAKE 1 CAPSULE ORAL TWICE A DAY Krysten Allergy 180MG Oral Tablet 04/28/2023 Unknown ORAL DAILY 180 MILLIGRAMS 514955 RxNorm TAKE 180 MILLIGRAMS ORAL DAILY Jardiance 10MG Oral Tablet 04/28/2023 Unknown ORAL DAILY 10 MILLIGRAMS 9706798 RxNorm TAKE 10 MILLIGRAMS ORAL DAILY Spironolacton e 25MG Oral Tablet 04/28/2023 Unknown ORAL DAILY 12.5 MILLIGRAMS 850975 RxNorm TAKE 12.5 MILLIGRAMS ORAL DAILY Potassium Chloride 10MEQ Oral Tablet, Extended Release 04/28/2023 Unknown ORAL DAILY 1 TABLET 841466 RxNorm TAKE 1 TABLET ORAL DAILY Assessment [...] Date Status Code Code System HYPOKALEMIA active 50754046 SNOMED-C T HYPOMAGNESEMIA active 491012160 SNOME D-CT CARDIOMYOPATHY active 21960439 SNOME D-CT OBSTRUCTIVE SLEEP APNEA active 110129 09 SNOMED-CT HYPERTENSION active 72035181 SNOMED- CT ANXIETY active 87506537 SNOMED-CT ANGIOEDEMA 04/27/2023 resolved 27738114 SNOMED-C T Allergies and Adverse Reactions Allergy Substance Reaction Severity Start Date Concern Status Code Code System FUROSEMIDE Anaphylaxis (SNOMED-CT: 27491864) Active 4603 RxNorm NALOXONE Anaphylaxis (SNOMED-CT: 68494761) Active 7242 RxNorm HYDROCODONE Headache (SNOMED-CT: 99241439), NAUSEA (SNOMED-CT: 464479286), Nausea (SNOMED-CT: 527220825) Active 5489 RxNorm RITALIN Anaphylaxis (SNOMED-CT: 33625058) Active 150521 RxNorm ALMOND Anaphylaxis (SNOMED-CT: 65123544) 04/08/2018 Active 941349979 SNOMED-CT Plan of Treatment MM SCREEN BILAT 07/08/2023 MM SCREEN BILAT 05/12/2022 MM SCREEN BILAT 03/23/2022 MM SCREEN BILAT 12/02/2020 US ABDOMEN COMPLETE 10/06/2021 US ABDOMEN LIMITED 1 ORGAN 05/12/2022 US ABDOMEN LIMITED 1 ORGAN 03/18/2022 Encounters Encounter Diagnosis Start Date Code Code Sys tem Hypokalemia 04/27/2023 37318181 [facility]oolalaOMED-[facility] Personal Care Team Section Performer Name Performer Role Active Date Inactive Da te
--- OUTSIDE RECORDS SUMMARY | 2023-08-20 22:15 | XMS_ITS ---
Author Organization Unknown Address [address] [place] [address] [phone] Phone Care Team Providers Care Fish Net Stringer Name Role Phone JOSE Taylor Attending Unavailable [facility] Unavailable MIGUEL SNELLILY Primary Unavailable UNLISTED PROVIDER - REQUESTED Xhandoff Un available Social History Type Status Start Date End Date Code Code Syst em Smoking History Former smoker 12/20/19972111 2879342 SNOMED CT Sex Female Vital Signs Vital Sign Value Unit [place] Date/Time Recent/Initial? Code Code System Body Mass Index 38.41 kg/m2 12/08/2022 10:57 Initial 72257 -5 [facility] Systolic Blood Pressure 108 mm[Hg] 12/08/2022 10:57 Initial 8480- 6 [facility] Diastolic Blood Pressure 80 mm[Hg] 12/08/2022 10:57 Initial 8462- 4 [facility] Body Surface Area 2.04 m2 12/08/2022 10:57 Initial 3140- 1 [facility] Height 157.480 0 cm 62.00 in 12/08/2022 10:57 Initial 8302- 2 [facility] O2 Saturation 97 % 2022 10:57 Initial 37739 -5 [facility] Pulse 54.0 /min 12/08/2022 10:57 Initial 8867- 4 [facility] Respiration 16 /min 12/09/19 10:57 Initial 9279- 1 [facility] Temperature 35.8 Hannah 96.4 F 12/09/19 10:57 Initial 8310- 5 [facility] Weight 95.25 kg 210.00 lbs 12/08/2022 10:57 Initial 03904 -7 [facility] Medications Medication Start Date End Date Route Frequency Dose Code Code System Medication Instructions Home Meds Low Dose Aspirin 81MG Oral Tablet, Enteric Coated 04/11/2022 Unknown ORAL DAILY WITH FOOD 81 MILLIGRAMS 913086 RxNorm TAKE 81 MILLIGRAMS ORAL DAILY WITH FOOD Metoprolol Succinate 50MG Oral Tablet, Extended Release 04/11/2022 Unknown ORAL DAILY 50 MILLIGRAMS 570661 RxNorm TAKE 50 MILLIGRAMS ORAL DAILY Entresto 24MG-26MG Oral Tablet 04/11/2022 Unknown ORAL TWICE A DAY 1 TABLET 4278186 RxNorm TAKE 1 TABLET ORAL TWICE A DAY Albuterol Sulfate HFA 0.09MG/1Actua tion Inhalation Suspension 04/11/2022 Unknown INHALATIO N 1 unit(s) 9670292 RxNorm 1 EACH INHALATION Buprenorphine 2MG Sublingual Tablet 04/11/2022 Unknown SUBLINGUA L noon 2 MILLIGRAMS 860061 RxNorm DISSOLVE 2 MILLIGRAMS SUBLINGUAL noon Buprenorphine 2MG Sublingual Tablet 04/11/2022 Unknown SUBLINGUA L TWICE A DAY 4 MILLIGRAMS 144374 RxNorm DISSOLVE 4 MILLIGRAMS SUBLINGUAL TWICE A DAY Gabapentin 300MG Oral Capsule 04/11/2022 Unknown ORAL NEEDED TWICE DAILY 300 MILLIGRAMS 254245 RxNorm TAKE 300 MILLIGRAMS ORAL NEEDED TWICE DAILY Torsemide 20MG Oral Tablet 04/11/2022 Unknown ORAL DAILY 1 TABLET 313157 RxNorm TAKE 1 TABLET ORAL DAILY Doxycycline 100MG Oral Capsule 12/08/2022 04/27/19 24 ORAL TWICE A DAY 1 CAPSULE 7475056 RxNorm TAKE 1 CAPSULE ORAL TWICE A DAY Krysten Allergy 180MG Oral Tablet 04/28/2023 Unknown ORAL DAILY 180 MILLIGRAMS 480096 RxNorm TAKE 180 MILLIGRAMS ORAL DAILY Jardiance 10MG Oral Tablet 04/28/2023 Unknown ORAL DAILY 10 MILLIGRAMS 7158352 RxNorm TAKE 10 MILLIGRAMS ORAL DAILY Spironolacton e 25MG Oral Tablet 04/28/2023 Unknown ORAL DAILY 12.5 MILLIGRAMS 313538 RxNorm TAKE 12.5 MILLIGRAMS ORAL DAILY Potassium Chloride 10MEQ Oral Tablet, Extended Release 04/28/2023 Unknown ORAL DAILY 1 TABLET 036370 RxNorm TAKE 1 TABLET ORAL DAILY Assessment [...] Date Status Code Code System HYPOKALEMIA active 59569046 SNOMED-C T HYPOMAGNESEMIA active 628590493 SNOME D-CT CARDIOMYOPATHY active 64436582 SNOME D-CT OBSTRUCTIVE SLEEP APNEA active 183028 09 SNOMED-CT HYPERTENSION active 27234615 SNOMED- CT ANXIETY active 92612786 SNOMED-CT ANGIOEDEMA 04/27/2023 resolved 61269907 SNOMED-C T Allergies and Adverse Reactions Allergy Substance Reaction Severity Start Date Concern Status Code Code System FUROSEMIDE Anaphylaxis (SNOMED-CT: 01593711) Active 4603 RxNorm NALOXONE Anaphylaxis (SNOMED-CT: 14999082) Active 7242 RxNorm HYDROCODONE Headache (SNOMED-CT: 60112693), NAUSEA (SNOMED-CT: 302992482), Nausea (SNOMED-CT: 592904792) Active 5489 RxNorm RITALIN Anaphylaxis (SNOMED-CT: 34143684) Active 831675 RxNorm ALMOND Anaphylaxis (SNOMED-CT: 05498978) 04/08/2018 Active 452057310 SNOMED-CT Plan of Treatment MM SCREEN BILAT 07/08/2023 MM SCREEN BILAT 05/12/2022 MM SCREEN BILAT 03/23/2022 MM SCREEN BILAT 12/02/2020 US ABDOMEN COMPLETE 10/06/2021 US ABDOMEN LIMITED 1 ORGAN 05/12/2022 US ABDOMEN LIMITED 1 ORGAN 03/18/2022 Encounters Encounter Diagnosis Start Date Code Code Sys tem Disorder of sacrum 12/08/2022 42707275 SNOMED-CT Personal Care Team Section Performer Name Performer Role Active Date Inactive Da te
--- OUTSIDE RECORDS SUMMARY | 2023-08-20 22:15 | XMS_ITS ---
Author Organization Unknown Address [address] [place] [address] [phone] Phone Care Team Providers Care Credentialing Specialist Name Role Phone JESICA Medrano Attending Unavailable MIGUEL SNELLILY Primary Unavailable Social History Type Status Start Date End Date Code Code Syst em Smoking History Former smoker 12/20/19978595 4734536 SNOMED CT Sex Female Medications Medication Start Date End Date Route Frequency Dose Code Code System Medication Instructions Home Meds Low Dose Aspirin 81MG Oral Tablet, Enteric Coated 04/11/2022 Unknown ORAL DAILY WITH FOOD 81 MILLIGRAMS 459956 RxNorm TAKE 81 MILLIGRAMS ORAL DAILY WITH FOOD Metoprolol Succinate 50MG Oral Tablet, Extended Release 04/11/2022 Unknown ORAL DAILY 50 MILLIGRAMS 790083 RxNorm TAKE 50 MILLIGRAMS ORAL DAILY Entresto 24MG-26MG Oral Tablet 04/11/2022 Unknown ORAL TWICE A DAY 1 TABLET 1360340 RxNorm TAKE 1 TABLET ORAL TWICE A DAY Albuterol Sulfate HFA 0.09MG/1Actua tion Inhalation Suspension 04/11/2022 Unknown INHALATIO N 1 unit(s) 4859915 RxNorm 1 EACH INHALATION Buprenorphine 2MG Sublingual Tablet 04/11/2022 Unknown SUBLINGUA L noon 2 MILLIGRAMS 824422 RxNorm DISSOLVE 2 MILLIGRAMS SUBLINGUAL noon Buprenorphine 2MG Sublingual Tablet 04/11/2022 Unknown SUBLINGUA L TWICE A DAY 4 MILLIGRAMS 301679 RxNorm DISSOLVE 4 MILLIGRAMS SUBLINGUAL TWICE A DAY Gabapentin 300MG Oral Capsule 04/11/2022 Unknown ORAL NEEDED TWICE DAILY 300 MILLIGRAMS 456205 RxNorm TAKE 300 MILLIGRAMS ORAL NEEDED TWICE DAILY Torsemide 20MG Oral Tablet 04/11/2022 Unknown ORAL DAILY 1 TABLET 546968 RxNorm TAKE 1 TABLET ORAL DAILY Doxycycline 100MG Oral Capsule 12/08/2022 04/27/19 24 ORAL TWICE A DAY 1 CAPSULE 1768252 RxNorm TAKE 1 CAPSULE ORAL TWICE A DAY Krysten Allergy 180MG Oral Tablet 04/28/2023 Unknown ORAL DAILY 180 MILLIGRAMS 769296 RxNorm TAKE 180 MILLIGRAMS ORAL DAILY Jardiance 10MG Oral Tablet 04/28/2023 Unknown ORAL DAILY 10 MILLIGRAMS 8470058 RxNorm TAKE 10 MILLIGRAMS ORAL DAILY Spironolacton e 25MG Oral Tablet 04/28/2023 Unknown ORAL DAILY 12.5 MILLIGRAMS 641983 RxNorm TAKE 12.5 MILLIGRAMS ORAL DAILY Potassium Chloride 10MEQ Oral Tablet, Extended Release 04/28/2023 Unknown ORAL DAILY 1 TABLET 015464 RxNorm TAKE 1 TABLET ORAL DAILY Assessment [...] Date Status Code Code System HYPOKALEMIA active 02310712 SNOMED-C T HYPOMAGNESEMIA active 879716619 SNOME D-CT CARDIOMYOPATHY active 52638556 SNOME D-CT OBSTRUCTIVE SLEEP APNEA active 170371 09 SNOMED-CT HYPERTENSION active 67912422 SNOMED- CT ANXIETY active 24452485 SNOMED-CT ANGIOEDEMA 04/27/2023 resolved 80655374 SNOMED-C T Allergies and Adverse Reactions Allergy Substance Reaction Severity Start Date Concern Status Code Code System FUROSEMIDE Anaphylaxis (SNOMED-CT: 02303802) Active 4603 RxNorm NALOXONE Anaphylaxis (SNOMED-CT: 81837147) Active 7242 RxNorm HYDROCODONE Headache (SNOMED-CT: 64557393), NAUSEA (SNOMED-CT: 097609087), Nausea (SNOMED-CT: 879432479) Active 5489 RxNorm RITALIN Anaphylaxis (SNOMED-CT: 52968366) Active 644052 RxNorm ALMOND Anaphylaxis (SNOMED-CT: 04175316) 04/08/2018 Active 670966755 SNOMED-CT Plan of Treatment MM SCREEN BILAT 07/08/2023 MM SCREEN BILAT 05/12/2022 MM SCREEN BILAT 03/23/2022 MM SCREEN BILAT 12/02/2020 US ABDOMEN COMPLETE 10/06/2021 US ABDOMEN LIMITED 1 ORGAN 05/12/2022 US ABDOMEN LIMITED 1 ORGAN 03/18/2022 Encounters Encounter Diagnosis Start Date Code Code Sys tem Cardiomyopathy, unspecified 10/26/2022 SNOMED-CT Personal Care Team Section Performer Name Performer Role Active Date Inactive Da te
--- OUTSIDE RECORDS SUMMARY | 2023-08-20 22:16 | XMS_ITS | Encounter Summary ---
Author Organization [facility] Address [address] [place] [address] Care Team Providers Care Membership Correspondent Name Role Phone Sharron Cintron MD Primary Care Provider [phone] Reason for Visit * Reason Onset Date Comments Appointment Related 08/04/2022 fcp Encounter Details Date Type Department Care Team (Late st Contact Info) Description 08/04/2022 Telephone [facility] Hematology & Oncology - [address] [address] Fcp, Provider, Appointment Related (fcp) Social History Tobacco Use Types Packs/Day Years Used Date Smoking Tobacco: Former Cigarettes Q uit: 04/08/2022 Smokeless Tobacco: Never Alcohol Use Standard Drinks/Week Comments Not Currently 4 (1 standard drink = 0.6 oz pur e alcohol) no longer daily Interpersonal Safety Answer Date Record ed Physically Hurt Never 09/10/2019 Verbally Threaten Not on file 09/10/2019 Sex and Gender Information Value Date Recorded Sex Assigned at Not on file Gender Identity Female 05/22/2022 10:01 EDT Sexual Orientation Not on file documented as of this encounter Miscellaneous Notes * Telephone Encounter - Graciela Jacobs - 08/04/2022 1148 EDT Called and LVMOM for patient regarding FCP referral. Left my direct number (1st attempt) documented in this encounter Plan of Treatment Upcoming Encounters Date Type Department Care Team (Late st Contact Info) Description 10/22/2023 12:30 EDT Ancillary Procedure [facility] Vascular Surgery [address] [address] 10/22/2023 13:15 EDT Initial consult [facility] [address] [address] Pedrito Plascencia MD [address] [place] [address], Level 5 [phone] documented as of this encounter Visit Diagnoses Not on filedocumented in this encounter Care Teams Membership Correspondent Relationship Specialty Start Date End Date Sharron Cintron MD [address] [phone] PCP - General 06/06/18 documented as of this encounter
--- OUTSIDE RECORDS SUMMARY | 2023-08-20 22:16 | XMS_ITS | Encounter Summary ---
Author Organization [facility] Address [address] [place] [address] Care Team Providers Care Safe And Vault Installer Name Role Phone Sharron Cintron MD Primary Care Provider [phone] Reason for Visit * Reason Onset Date Comments Appointment Related 08/28/2022 fcp Encounter Details Date Type Department Care Team (Late st Contact Info) Description 08/28/2022 Telephone [facility] Hematology & Oncology - Main [address] [address] Fcp, Provider, Appointment Related (fcp) Social History [...] * Telephone Encounter - Graciela Jacobs - 08/28/2022 1020 EDT Called and LVMOM for patient following up on FCP referral. Left my direct number (3rd and final attempt) documented in this encounter Plan of Treatment Upcoming Encounters Date Type Department Care Team (Late st Contact Info) Description 10/22/2023 12:30 EDT Ancillary Procedure [facility] Vascular Surgery [address] [address] 10/22/2023 13:15 EDT Initial consult [facility] Surgery [address] [address] Pedrito Plascencia MD [address] [place] [address], [address] [place] [phone] documented as of this encounter Visit Diagnoses Not on filedocumented in this encounter Care Teams Safe And Vault Installer Relationship Specialty Start Date End Date Sharron Cintron MD [address] [phone] PCP - General 06/06/18 documented as of this encounter
--- OUTSIDE RECORDS SUMMARY | 2023-08-20 22:16 | XMS_ITS | Clinical Summary ---
Author Organization [facility] Address [facility] [place] [address] Care Team Providers Care Skeins Yarn Examiner Name Role Phone EusebiaNess Ranjith MUÑIZ Primary Care Provider Allergies No known active allergies Medications Medication Sig Dispensed Refills Start Date End Date Status gabapentin (Neurontin) 300 mg Capsule TAKE 1 CAPSULE BY MOUTH TWICE DAILY 01/22/2020 Active cetirizine (ZyrTEC) 10 mg Tablet TAKE 1 TABLET BY MOUTH EVERY DAY NEEDED 06/17/2020 Active ProAir HFA 90 mcg/actuation HFA Aerosol Inhaler INHALE 1 TO 2 PUFFS BY MOUTH EVERY 4 TO 6 HOURS NEEDED FOR WHEEZING 06/03/2020 Active fluticasone propionate (FLONASE) 50 mcg/actuation [place], Suspension SHAKE LIQUID AND USE 1 SPRAY IN EACH NOSTRIL TWICE DAILY 06/03/2020 Active buprenorphine (Subutex) 2 mg Tablet, Sublingual 07/01/2020 Active naloxone 0.4 mg/mL Syringe To be picked up by Allergy clinic for skin testing. 1 mL 07/02/2020 Active Family History Medical History Relation Comments Allergic Rhinitis Maternal Aunt Chronic Obstructive Pulmonary Disease Maternal A unt Allergic Rhinitis Maternal Grandmother Chronic Obstructive Pulmonary Disease Maternal G randmother Eczema Other Relation Status Comments Maternal Aunt Maternal Grandmother Other Social History Tobacco Use Types Packs/Day Years Used Date Smoking Tobacco: Every Day Smokeless Tobacco: Never Sex and Gender Information Value Date Recorded Sex Assigned at Not on file Gender Identity Not on file Sexual Orientation Not on file Plan of Treatment Health Maintenance Due Date Last Done Comments HIV screen 01/01/1998 Hepatitis C Screening 01/01/1998 Lipid Screening 01/01/1998 Hepatitis B vaccine (0-59 yrs) (1) 01/01/1999 Tdap adult 01/01/1999 Tetanus vaccine 01/01/1999 HPV test 01/01/2010 PAP Smear 01/01/2010 Breast Cancer Share Decision Needed 2020 Breast Cancer screening 2020 Covid-19 Vaccine ( - season) 2022 Influenza (Flu) vaccine (1 o f 1 - Influenza standard series) 10/10/2023 Care Teams Skeins Yarn Examiner Relationship Specialty Start Date End Date Ness Laws APRN [address] [place] [address] PCP - General Family Medicine 02/28/20
--- OUTSIDE RECORDS SUMMARY | 2023-08-20 22:16 | XMS_ITS ---
Author Organization Unknown Address [address] [place] [address] [phone] Phone Care Team Providers Care Sales Support Specialist Name Role Phone LUCIAN KORIN Registered Nurse Unavailable Unavailable Xwatchlist Unavailable TWILA Shanks Attending Unavailable JOSE LAKE Unavailable ISH CARLOS MANUEL Primary Unavailable JIMENA Kasper Secondary Unavailable KIEL Butterfield Xhandoff Unavailable UNLISTED PROVIDER - REQUESTED Xhandoff Un available Results TROPONIN HIGH SENSITIVITY* - Collect Date/Time: 04/28/2023 06:40 [facility] ID: [id number] [address] [place] [address], [address] LOINC: 69884-8 Test Value Unit Reference Range Code Code System Flag TROPONIN HS < 4.0 pg/mL L=0.0 H=60.4 Specimen seq. RANDOM BASIC METABOLIC PANEL (BMP) - Collect Date/Time: 04/28/2023 06:40 [facility] ID: [id number] [address] [place] [address], [address] LOINC: 80241-6 Test Value Unit Reference Range Code Code System Flag GLUCOSE 114 mg/dL L=70 H=116 2345-7 LOINC BUN 10 mg/dL L=6 H=25 3094-0 LOINC CREATININE 0.90 mg/dL L=0.51 H=0.95 2160-0 LOINC SODIUM SERUM 135 mmol/L L=136 H=145 2951-2 LOINC L POTASSIUM SERUM 3.1 mmol/L L=3.4 H=5.2 2823-3 LOINC L CHLORIDE SERUM 94 mmol/L L=96 H=110 2075-0 LOINC L CARBON DIOXIDE (CO2) 34 mmol/L L=22 H=34 2027-9 LOINC ANION GAP 7.3 mmol/L 87457-2 LOINC CALCIUM SERUM 8.9 mg/dL L=8.2 H=10.2 04374-5 LOINC AGE 43 years eGFR (non-Afr.Amer.) 68 mL/min 45826-7 LOINC eGFR (Afr-Sudanese) 83 mL/min 45118-6 LOINC MAGNESIUM SERUM* - Collect D ate/Time: 04/28/2023 06:40 [facility] ID: [id number] [address] [place] [address], [address] LOINC: 35225-1 Test Value Unit Reference Range Code Code System Flag MAGNESIUM 2.4 mg/dL L=1.8 H=2.4 58455-6 INC CBC W/ DIFFERENTIAL* - Colle ct Date/Time: 04/28/2023 06:40 [facility] ID: [id number] [address] [place] [address], [address] LOINC: 16886-8 Test Value Unit Reference Range Code Code System Flag WBC 9.55 th/cmm L=5.00 H=10.00 6690-2 LOINC NEUT % 54.3 % L=40.0 H=80.0 LYMPH % 32.5 % L=10.0 H=50.0 MONO % 7.4 % L=2.0 H=12.0 42614-9 LOINC EOS % 4.8 % L=0.0 H=8.0 BASO % 0.5 % L=0.0 H=3.0 IG % 0.5 % L=0.0 H=1.1 2514-8 LOINC NRBC % 0.0 % L=0.0 H=0.0 21135-7 LOINC NEUT abs count 5.2 th/cmm L=1.6 H=8.4 751-8 LOINC LYMPH abs count 3.1 th/cmm L=1.5 H=4.0 731-0 LOINC MONO abs count 0.7 th/cmm L=0.2 H=1.0 742-7 LOINC EOS abs count 0.5 th/cmm L=0.0 H=0.5 711-2 LOINC BASO abs count 0.1 th/cmm L=0.0 H=0.2 704-7 LOINC IG abs count 0.1 th/cmm L=0.0 H=0.1 75715-2 LOINC NRBC abs count 0.0 mil/cmm L=0.0 H=0.0 61441-7 LOINC RBC 4.89 mil/cmm L=3.90 H=5.40 789-8 LOINC HEMOGLOBIN 15.1 gm/dL L=12.0 H=16.0 718-7 LOINC HEMATOCRIT 44 % L=37 H=47 4544-3 LOINC MCV 91 fL L=82 H=92 787-2 LOINC MCH 30.9 pg L=27.0 H=31.0 785-6 LOINC MCHC 34.0 % L=32.0 H=36.0 786-4 LOINC RDW-SD 40.4 fL L=39.0 H=49.0 788-0 LOINC PLATELET COUNT 303 th/cmm L=150 H=450 777-3 LOINC MAGNESIUM SERUM* - Collect D ate/Time: 04/27/2023 19:00 [facility] ID: [id number] [address] [place] [address], [address] LOINC: 37807-2 Test Value Unit Reference Range Code Code System Flag MAGNESIUM 1.4 mg/dL L=1.8 H=2.4 55689-6 LOINC L COMPREHENSIVE METABOLIC PANE L (CMP) - Collect Date/Time: 04/27/2023 19:00 [facility] ID: [id number] [address] [place] [address], [address] LOINC: 98782-2 Test Value Unit Reference Range Code Code System Flag GLUCOSE 122 mg/dL L=70 H=116 2345-7 LOINC H BUN 9 mg/dL L=6 H=25 3094-0 LOINC CREATININE 0.94 mg/dL L=0.51 H=0.95 2160-0 LOINC SODIUM SERUM 138 mmol/L L=136 H=145 2951-2 LOINC POTASSIUM SERUM 2.8 mmol/L L=3.4 H=5.2 2823-3 LOINC LL CHLORIDE SERUM 94 mmol/L L=96 H=110 2075-0 LOINC L CARBON DIOXIDE (CO2) 36 mmol/L L=22 H=34 2028-9 LOINC H ANION GAP 7.6 mmol/L 96138-8 LOINC CALCIUM SERUM 8.6 mg/dL L=8.2 H=10.2 38280-9 LOINC BILIRUBIN TOTAL 0.8 mg/dL L=0.0 H=1.3 1975-2 LOINC ALK. PHOS. 90 U/L L=46 H=116 6768-6 LOINC SGOT (AST) 43 U/L L=15 H=37 1920-8 LOINC H SGPT (ALT) 52 U/L L=12 H=78 1742-6 LOINC TOTAL PROTEIN 7.9 gm/dL L=6.0 H=8.0 2885-2 LOINC ALBUMIN 3.6 gm/dL L=3.4 H=5.0 1751-7 LOINC AGE 43 years eGFR (non-Afr.Amer.) 65 mL/min 69414-2 LOINC eGFR (Afr-Sudanese) 79 mL/min 23744-5 LOINC CBC W/ DIFFERENTIAL* - Colle ct Date/Time: 04/27/2023 19:00 [facility] ID: [id number] [address] [place], [place], [facility] LOINC: 13677-8 Test Value Unit Reference Range Code Code System Flag WBC 12.81 th/cmm L=5.00 H=10.00 6690-2 LOINC H NEUT % 71.7 % L=40.0 H=80.0 LYMPH % 19.4 % L=10.0 H=50.0 MONO % 5.5 % L=2.0 H=12.0 60255-0 LOINC EOS % 2.2 % L=0.0 H=8.0 BASO % 0.6 % L=0.0 H=3.0 IG % 0.6 % L=0.0 H=1.1 2514-8 LOINC NRBC % 0.0 % L=0.0 H=0.0 56205-7 LOINC NEUT abs count 9.2 th/cmm L=1.6 H=8.4 751-8 LOINC H LYMPH abs count 2.5 th/cmm L=1.5 H=4.0 731-0 LOINC MONO abs count 0.7 th/cmm L=0.2 H=1.0 742-7 LOINC EOS abs count 0.3 th/cmm L=0.0 H=0.5 711-2 LOINC BASO abs count 0.1 th/cmm L=0.0 H=0.2 704-7 LOINC IG abs count 0.1 th/cmm L=0.0 H=0.1 12151-2 LOINC NRBC abs count 0.0 mil/cmm L=0.0 H=0.0 98668-1 LOINC RBC 5.28 mil/cmm L=3.90 H=5.40 789-8 LOINC HEMOGLOBIN 16.3 gm/dL L=12.0 H=16.0 718-7 LOINC H HEMATOCRIT 48 % L=37 H=47 4544-3 LOINC H MCV 90 fL L=82 H=92 787-2 LOINC MCH 30.9 pg L=27.0 H=31.0 785-6 LOINC MCHC 34.3 % L=32.0 H=36.0 786-4 LOINC RDW-SD 40.2 fL L=39.0 H=49.0 788-0 LOINC PLATELET COUNT 342 th/cmm L=150 H=450 777-3 LOINC Social History Type Status Start Date End Date Code Code Syst em Smoking History Former smoker 12/20/19972415 8147064 SNOMED CT Sex Female Vital Signs Vital Sign Value Unit [place] Value [place] Unit Date/Time Recent/Initial? Code Code System Body Mass Index 38.41 kg/m2 04/27/2023 18:27 Initial 38880 -5 LOINC Systolic Blood Pressure 119 mm[Hg] 04/28/2023 07:00 Most Recent 8480- 6 INC Diastolic Blood Pressure 81 mm[Hg] 04/28/2023 07:00 Most Recent 8462- 4 LOINC Systolic Blood Pressure 110 mm[Hg] 04/27/2023 21:39 Initial 8480- 6 LOINC Diastolic Blood Pressure 58 mm[Hg] 04/27/2023 21:39 Initial 8462- 4 INC Body Surface Area 2.04 m2 04/27/2023 18:27 Initial 3140- 1 LOINC Height 157.480 0 cm 62.00 in 04/27/2023 18:27 Initial 8302- 2 INC O2 Saturation 95 % 2023 07:00 Most Recent 27143 -5 LOINC O2 Saturation 96 % 2023 18:27 Initial 17966 -5 LOINC Pulse 85.0 /min 04/28/2023 07:00 Most Recent 8867- 4 INC Pulse 94.0 /min 04/27/2023 18:27 Initial 8867- 4 LOINC Respiration 19 /min 04/28/19 24 07:00 Most Recent 9279- 1 LOINC Respiration 18 /min 04/27/19 24 18:27 Initial 9279- 1 LOINC Temperature 36.3 Hannah 97.3 F 04/28/19 07:00 Most Recent 8310- 5 LOINC Temperature 36.1 Hannah 97.0 F 04/27/19 24 18:27 Initial 8310- 5 LOINC Weight 95.44 kg 210.40 lbs 04/27/2023 23:21 Most Recent 21243 -7 INC Weight 95.25 kg 210.00 lbs 04/27/2023 18:27 Initial 38114 -7 [facility] Medications Medication Start Date End Date Route Frequency Dose Code Code System Medication Instructions Home Meds Low Dose Aspirin 81MG Oral Tablet, Enteric Coated 04/11/2022 Unknown ORAL DAILY WITH FOOD 81 MILLIGRAMS 456706 RxNorm TAKE 81 MILLIGRAMS ORAL DAILY WITH FOOD Metoprolol Succinate 50MG Oral Tablet, Extended Release 04/11/2022 Unknown ORAL DAILY 50 MILLIGRAMS 180979 RxNorm TAKE 50 MILLIGRAMS ORAL DAILY Entresto 24MG-26MG Oral Tablet 04/11/2022 Unknown ORAL TWICE A DAY 1 TABLET 8326007 RxNorm TAKE 1 TABLET ORAL TWICE A DAY Albuterol Sulfate HFA 0.09MG/1Actua tion Inhalation Suspension 04/11/2022 Unknown INHALATIO N 1 unit(s) 8336853 RxNorm 1 EACH INHALATION Buprenorphine 2MG Sublingual Tablet 04/11/2022 Unknown SUBLINGUA L noon 2 MILLIGRAMS 372753 RxNorm DISSOLVE 2 MILLIGRAMS SUBLINGUAL noon Buprenorphine 2MG Sublingual Tablet 04/11/2022 Unknown SUBLINGUA L TWICE A DAY 4 MILLIGRAMS 994197 RxNorm DISSOLVE 4 MILLIGRAMS SUBLINGUAL TWICE A DAY Gabapentin 300MG Oral Capsule 04/11/2022 Unknown ORAL NEEDED TWICE DAILY 300 MILLIGRAMS 380982 RxNorm TAKE 300 MILLIGRAMS ORAL NEEDED TWICE DAILY Torsemide 20MG Oral Tablet 04/11/2022 Unknown ORAL DAILY 1 TABLET 528235 RxNorm TAKE 1 TABLET ORAL DAILY Krysten Allergy 180MG Oral Tablet 04/28/2023 Unknown ORAL DAILY 180 MILLIGRAMS 501591 RxNorm TAKE 180 MILLIGRAMS ORAL DAILY Jardiance 10MG Oral Tablet 04/28/2023 Unknown ORAL DAILY 10 MILLIGRAMS 1338589 RxNorm TAKE 10 MILLIGRAMS ORAL DAILY Spironolacton e 25MG Oral Tablet 04/28/2023 Unknown ORAL DAILY 12.5 MILLIGRAMS 964855 RxNorm TAKE 12.5 MILLIGRAMS ORAL DAILY Potassium Chloride 10MEQ Oral Tablet, Extended Release 04/28/2023 Unknown ORAL DAILY 1 TABLET 929585 RxNorm TAKE 1 TABLET ORAL DAILY Assessment [...] Date Status Code Code System HYPOKALEMIA active 15205452 SNOMED-C T HYPOMAGNESEMIA active 432063652 SNOME D-CT CARDIOMYOPATHY active 48132132 SNOME D-CT OBSTRUCTIVE SLEEP APNEA active 724578 09 SNOMED-CT HYPERTENSION active 05109301 SNOMED- CT ANXIETY active 86069955 SNOMED-CT ANGIOEDEMA 04/27/2023 resolved 04059934 SNOMED-C T Allergies and Adverse Reactions Allergy Substance Reaction Severity Start Date Concern Status Code Code System FUROSEMIDE Anaphylaxis (SNOMED-CT: 35152530) Active 4603 RxNorm NALOXONE Anaphylaxis (SNOMED-CT: 33271334) Active 7242 RxNorm HYDROCODONE Headache (SNOMED-CT: 19936189), NAUSEA (SNOMED-CT: 531460537), Nausea (SNOMED-CT: 917198511) Active 5489 RxNorm RITALIN Anaphylaxis (SNOMED-CT: 92710476) Active 986841 RxNorm ALMOND Anaphylaxis (SNOMED-CT: 78595774) 04/08/2018 Active 251046036 SNOMED-CT Plan of Treatment MM SCREEN BILAT 07/08/2023 MM SCREEN BILAT 05/12/2022 MM SCREEN BILAT 03/23/2022 MM SCREEN BILAT 12/02/2020 US ABDOMEN COMPLETE 10/06/2021 US ABDOMEN LIMITED 1 ORGAN 05/12/2022 US ABDOMEN LIMITED 1 ORGAN 03/18/2022 Plan # Hypokalemia # Hypomagnesemia Admit to MedSurg, telemetry Serial laboratory monitoring Repeat EKG in a.m. Repeat troponin in a.m. 40 mEq potassium p.o. and 10 mEq IV potassium in ED 20 mEq potassium PO ordered for a.m. 2 g IV magnesium given in ED, additional 2 g IV administered Recommendations: Discharge to home New Medication: Potassium Chloride 10 meq daily Follow with PCP in the next 1-2 weeks Discharge Medications: Discharge Meds List Albuterol Sulfate HFA 0.09MG/1Actuation Inhalation Suspension, 1 EACH INHALATION Krysten Allergy 180MG Oral Tablet, TAKE 180 MILLIGRAMS ORAL DAILY Buprenorphine 2MG Sublingual Tablet, DISSOLVE 2 MILLIGRAMS SUBLINGUAL noon Buprenorphine 2MG Sublingual Tablet, DISSOLVE 4 MILLIGRAMS SUBLINGUAL TWICE A DAY Entresto 24MG-26MG Oral Tablet, TAKE 1 TABLET ORAL TWICE A DAY Gabapentin 300MG Oral Capsule, TAKE 300 MILLIGRAMS ORAL NEEDED TWICE DAILY Jardiance 10MG Oral Tablet, TAKE 10 MILLIGRAMS ORAL DAILY Low Dose Aspirin 81MG Oral Tablet, Enteric Coated, TAKE 81 MILLIGRAMS ORAL DAILY WITH FOOD Metoprolol Succinate 50MG Oral Tablet, Extended Release, TAKE 50 MILLIGRAMS ORAL DAILY Potassium Chloride 10MEQ Oral Tablet, Extended Release, TAKE 1 TABLET ORAL DAILY Spironolactone 25MG Oral Tablet, TAKE 12.5 MILLIGRAMS ORAL DAILY Torsemide 20MG Oral Tablet, TAKE 1 TABLET ORAL DAILY Encounters Encounter Diagnosis Start Date Code Code Sys tem Hypokalemia 04/27/2023 SNOMED-CT Personal Care Team Section Performer Name Performer Role Active Date Inactive Da te Discharge Summary Notes [facility] 04/29/2023 09:59 All Demographics Patient Name Age Sex Visit Number Admission Date/Time Attending Physician Date of Service Room and Bed Emergency Contact RAYNA HICKEY 1980 43 years Unknown [id number] 04/27/2023 22:15 KARIN MATTSON 04/27/2023 [id number] HARI HICKEY D - [id number] 04/28/2023 11:23 Discharge Date: 04/28/2023 Reason for Admission: Hypokalemia, Hypomagnesemia Final Diagnosis: Hypokalemia, Hypomagnesemia Problem List Cardiomyopathy Obstructive sleep apnea Hypertension Anxiety Hypokalemia Hypomagnesemia Attending Physician: Connie Mattson MD Primary Care Physician: PROVOST HOROWITZ History of Present Illness See admission H&P for further details. 42-year-old female with a medical history significant for hypertension, obstructive sleep apnea, opiate use disorder now on buprenorphine, alcohol use disorder, obesity, asthma, presenting with low potass She last was admitted to [facility] on 04/07/2022 with discharge diagnosis of CHF, cardiomyopathy and NILDA with nocturnal hypoxemia. Echocardiogram at that time was severely reduced EF of 25 to 30% and she was followed by Dr. Olivo. She was started on torsemide, lisinopril discontinued and started Entresto. Repeat echocardiogram completed on 09/28/2022 showing EF 40 to 45%. Patient endorses tingling in bilateral upper extremities over the past two plus months, possibly related to her caral tunnel. She denies any swelling in her legs or any recent weight gain, however she does endorse some sporadic chest pain, none at the time of presentation, and denies shortness of breath. Patient does have a CPAP machine which she has had since discharge from the hospital last year, however she has not been wearing her CPAP since September due to her puppy chewing the tubing. She states that she just received a new shipment of tubing, and will start to wear it. In the ED laboratories significant for WBC 12.8, potassium 2.8, magnesium 1.4. in the emergency department she was administered potassium 40 mEq p.o., potassium IV 20 mEq, and magnesium 2 g IV. Patient's overall complaints are a few weeks of tingling, feeling weak. EKG today per ED MD shows T waves flattened with U waves in V2-V4. Patient will be monitored overnight on the hospitalist service, serial laboratory monitoring and additional potassium administered if needed on repeat laboratories. Hospital Course Patient was admitted to the hospital for monitoring of repletion of electrolytes. No events on monitor overnight. This morning her potassium was improved to 3.1, her magnesium was improved to 2.4. Troponin came back <4. Patient feels well, eager to return home. Tingling in her upper extremities is somewhat improved. She was given a further 40 meq potassium p.o. this morning and will be started on 10 mill equivalents daily. Hypokalemia is likely due to her recently prescribed torsemide. She can follow up with her PCP to monitor serum potassium levels and increase supplemention as needed. Lab Results: Last 24 Hours Test Results Units Reference Range Collected GLUCOSE 114 mg/dL L=70 H=116 04/28/2023 06:40 BUN 10 mg/dL L=6 H=25 04/28/2023 06:40 CREATININE 0.90 mg/dL L=0.51 H=0.95 04/28/2023 06:40 SODIUM SERUM 135 L mmol/L L=136 H=145 04/28/2023 06:40 POTASSIUM SERUM 3.1 L mmol/L L=3.4 H=5.2 04/28/2023 06:40 CHLORIDE SERUM 94 L mmol/L L=96 H=110 04/28/2023 06:40 CARBON DIOXIDE (CO2) 34 mmol/L L=22 H=34 04/28/2023 06:40 ANION GAP 7.3 mmol/L 04/28/2023 06:40 CALCIUM SERUM 8.9 mg/dL L=8.2 H=10.2 04/28/2023 06:40 AGE 43 years 04/28/2023 06:40 eGFR (non-Afr.Amer.) 68 mL/min 04/28/2023 06:40 eGFR (Afr-Sudanese) 83 mL/min 04/28/2023 06:40 WBC 9.55 th/cmm L=5.00 H=10.00 04/28/2023 06:40 NEUT % 54.3 % L=40.0 H=80.0 04/28/2023 06:40 LYMPH % 32.5 % L=10.0 H=50.0 04/28/2023 06:40 MONO % 7.4 % L=2.0 H=12.0 04/28/2023 06:40 EOS % 4.8 % L=0.0 H=8.0 04/28/2023 06:40 BASO % 0.5 % L=0.0 H=3.0 04/28/2023 06:40 IG % 0.5 % L=0.0 H=1.1 04/28/2023 06:40 NRBC % 0.0 % L=0.0 H=0.0 04/28/2023 06:40 NEUT abs count 5.2 th/cmm L=1.6 H=8.4 04/28/2023 06:40 LYMPH abs count 3.1 th/cmm L=1.5 H=4.0 04/28/2023 06:40 MONO abs count 0.7 th/cmm L=0.2 H=1.0 04/28/2023 06:40 EOS abs count 0.5 th/cmm L=0.0 H=0.5 04/28/2023 06:40 BASO abs count 0.1 th/cmm L=0.0 H=0.2 04/28/2023 06:40 IG abs count 0.1 th/cmm L=0.0 H=0.1 04/28/2023 06:40 NRBC abs count 0.0 mil/cmm L=0.0 H=0.0 04/28/2023 06:40 RBC 4.89 mil/cmm L=3.90 H=5.40 04/28/2023 06:40 HEMOGLOBIN 15.1 gm/dL L=12.0 H=16.0 04/28/2023 06:40 HEMATOCRIT 44 % L=37 H=47 04/28/2023 06:40 MCV 91 fL L=82 H=92 04/28/2023 06:40 MCH 30.9 pg L=27.0 H=31.0 04/28/2023 06:40 MCHC 34.0 % L=32.0 H=36.0 04/28/2023 06:40 RDW-SD 40.4 fL L=39.0 H=49.0 04/28/2023 06:40 PLATELET COUNT 303 th/cmm L=150 H=450 04/28/2023 06:40 MAGNESIUM 2.4 mg/dL L=1.8 H=2.4 04/28/2023 06:40 TROPONIN HS <4.0 pg/mL L=0.0 H=60.4 04/28/2023 06:40 Specimen seq. RANDOM RANDOM 04/28/2023 06:40 Vitals: Date/Time BP (mm/Hg) Heart Rate Resp Temp (C) SPO2% O2 Device 04/28/2023 07:00 119/81 85 19 36.3 TEMPORAL SCANNING 95 % Room Air 21% Physical Exam: GEN: NAD EYES: No scleral icteris NECK: supple, no LAD PULM: CTA b/l no w/r/r CV: RRR with no m/r/g appreciated ABD: Soft, non distended, non-tender, no rebound or guarding. EXT: no edema NEURO: A&Ox3, 5/5 muscle strength upper and lower ext b/l. Assessment Problem List Cardiomyopathy Obstructive sleep apnea Hypertension Anxiety Hypokalemia Hypomagnesemia Recommendations: Discharge to home New Medication: Potassium Chloride 10 meq daily Follow with PCP in the next 1-2 weeks Discharge Medications: Discharge Meds List Albuterol Sulfate HFA 0.09MG/1Actuation Inhalation Suspension, 1 EACH INHALATION Krysten Allergy 180MG Oral Tablet, TAKE 180 MILLIGRAMS ORAL DAILY Buprenorphine 2MG Sublingual Tablet, DISSOLVE 2 MILLIGRAMS SUBLINGUAL noon Buprenorphine 2MG Sublingual Tablet, DISSOLVE 4 MILLIGRAMS SUBLINGUAL TWICE A DAY Entresto 24MG-26MG Oral Tablet, TAKE 1 TABLET ORAL TWICE A DAY Gabapentin 300MG Oral Capsule, TAKE 300 MILLIGRAMS ORAL NEEDED TWICE DAILY Jardiance 10MG Oral Tablet, TAKE 10 MILLIGRAMS ORAL DAILY Low Dose Aspirin 81MG Oral Tablet, Enteric Coated, TAKE 81 MILLIGRAMS ORAL DAILY WITH FOOD Metoprolol Succinate 50MG Oral Tablet, Extended Release, TAKE 50 MILLIGRAMS ORAL DAILY Potassium Chloride 10MEQ Oral Tablet, Extended Release, TAKE 1 TABLET ORAL DAILY Spironolactone 25MG Oral Tablet, TAKE 12.5 MILLIGRAMS ORAL DAILY Torsemide 20MG Oral Tablet, TAKE 1 TABLET ORAL DAILY History and Physical Notes [facility] 04/27/2023 23:14 Patient Name Age Sex Admission Date/Time RAYNA HICKEY 1980 43 years Unknown 04/27/2023 18:23 04/27/2023 22:03 Admission Date: 04/27/2023 Reason for Admission: Hypokalemia, Hypomagnesemia Code Status: FULL Attending Physician: Karin Mattson MD Primary Care Physician: PROVOST HOROWITZ History of Present Illness Chief Complaint: LOW POTASSIUM 42-year-old female patient with PMH of HTN, NILDA, opiate abuse disorder now on buprenorphine, AUD, obesity, asthma, presents to the emergency department today after she received a phone call from her PCPs office stating that she had a low potassium and needed to present to the emergency department. Sodium 2.9 per PCP office. She last was admitted to [facility] on 04/07/2022 with discharge diagnosis of CHF, cardiomyopathy and NILDA with nocturnal hypoxemia. Echocardiogram at that time was severely reduced EF of 25 to 30% and she was followed by Dr. Olivo. She was started on torsemide, lisinopril discontinued and started Entresto. Repeat echocardiogram completed on 09/28/2022 showing EF 40 to 45%. Patient states that she has had tingling in her bilateral upper arms and thought this was related to her carpal tunnel. She also said she has had some tingling in her bilateral lower legs. When queried further, she thinks that this has been going on for 6 months, but perhaps only for the last 2 months. she has not been started on any new medications since September. She does state however, that she takes her torsemide in the evening at bedtime, and she changed to taking it in the a.m. this morning. She says she is usually up peeing all night. This is the first time that she has taken her torsemide in the morning. She denies any swelling in her legs or any recent weight gain, however she does endorse some sporadic chest pain, none at this time, and denies shortness of breath. Patient does have a CPAP machine which she has had since discharge from the hospital last year, however she has not been wearing her CPAP since September due to her puppy chewing the tubing. She states that she just received a new shipment of tubing, and will start to wear it. In the ED laboratories significant for WBC 12.8, potassium 2.8, magnesium 1.4. in the emergency department she was administered potassium 40 mEq p.o., potassium IV 20 mEq, and magnesium 2 g IV. Patient's overall complaints are a few weeks of tingling, feeling weak. EKG today per ED MD shows T waves flattened with U waves in V2-V4. Patient will be monitored overnight on the hospitalist service, serial laboratory monitoring and additional potassium administered if needed on repeat laboratories. Ordered & Completed Meds Table Ordered Medication Start Date/Time Dosage Route Frequency Status POTASSIUM CHL TABLET: 20mEq 04/27/2023 20:00 40 MEQ ORAL X1 completed MAGNESIUM SULF PREMIX IV BAGM/50ML 04/27/2023 20:01 50 ml/hr IV PIGGYBACK X1 completed POTASSIUM CHL IN WATER RIDER 20mEq/100ML 04/27/2023 20:01 100 ml/hr IV PIGGYBACK X1 completed Past Medical History Cardiomyopathy, Obstructive sleep apnea, Hypertension, Angioedema, Anxiety, Surgery List: No Surgical History Available Family History List: No Family History Available Allergy List FUROSEMIDE, Medication NALOXONE, Medication HYDROCODONE, Medication RITALIN, Medication ALMOND, Food Active Home Meds Krysten Allergy 180MG Oral Tablet, 180 MILLIGRAMS, ORAL, DAILY Jardiance 10MG Oral Tablet, 10 MILLIGRAMS, ORAL, DAILY Spironolactone 25MG Oral Tablet, 12.5 MILLIGRAMS, ORAL, DAILY Torsemide 20MG Oral Tablet, 1 TABLET, ORAL, DAILY, Existing Prescription Gabapentin 300MG Oral Capsule, 300 MILLIGRAMS, ORAL, NEEDED TWICE DAILY, Existing Prescription Buprenorphine 2MG Sublingual Tablet, 4 MILLIGRAMS, SUBLINGUAL, TWICE A DAY, Existing Prescription Buprenorphine 2MG Sublingual Tablet, 2 MILLIGRAMS, SUBLINGUAL, noon, Existing Prescription Albuterol Sulfate HFA 0.09MG/1Actuation Inhalation Suspension, 1 EACH, INHALATION, , Existing Prescription Entresto 24MG-26MG Oral Tablet, 1 TABLET, ORAL, TWICE A DAY, Existing Prescription Metoprolol Succinate 50MG Oral Tablet, Extended Release, 50 MILLIGRAMS, ORAL, DAILY, Existing Prescription Low Dose Aspirin 81MG Oral Tablet, Enteric Coated, 81 MILLIGRAMS, ORAL, DAILY WITH FOOD, Existing Prescription Medication Reconciliation Source Patient Family PCP List Home List Pharmacy [facility] or Facility list X X Review of Systems Pertinent positives and negatives listed in HPI Physical Exam Date/Time BP (mm/Hg) Heart Rate Resp Temp (C) SPO2% O2 Device 04/27/2023 21:39 110/58 101 17 95 % Room Air 21% General - NAD, sitting up in bed, well groomed, nontoxic-appearing Eyes - noninjected anicteric ENT -normocephalic, atraumatic, MMM, nares patent, oral mucosa normal Cardiovascular - RRR no m/r/g, no JVD, normal S1, S2 Lungs - Clear to auscultation, no use of accessory muscles, no adventitious sounds Skin - No rashes, skin warm and dry Abdomen - Normal bowel sounds, abdomen soft and nontender Extremities - No edema, cyanosis or clubbing Neurological - Alert and oriented x 3, nonfocal exam, answers questions appropriately, good historian Psych-no agitation, anxious Labs last 24 hours Test Results Units Reference Range Collected WBC 12.81 H th/cmm L=5.00 H=10.00 04/27/2023 19:00 HEMOGLOBIN 16.3 H gm/dL L=12.0 H=16.0 04/27/2023 19:00 HEMATOCRIT 48 H % L=37 H=47 04/27/2023 19:00 PLATELET COUNT 342 th/cmm L=150 H=450 04/27/2023 19:00 GLUCOSE 122 H mg/dL L=70 H=116 04/27/2023 19:00 BUN 9 mg/dL L=6 H=25 04/27/2023 19:00 CREATININE 0.94 mg/dL L=0.51 H=0.95 04/27/2023 19:00 SODIUM SERUM 138 mmol/L L=136 H=145 04/27/2023 19:00 POTASSIUM SERUM 2.8 LL mmol/L L=3.4 H=5.2 04/27/2023 19:00 CHLORIDE SERUM 94 L mmol/L L=96 H=110 04/27/2023 19:00 CARBON DIOXIDE (CO2) 36 H mmol/L L=22 H=34 04/27/2023 19:00 ANION GAP 7.6 mmol/L 04/27/2023 19:00 CALCIUM SERUM 8.6 mg/dL L=8.2 H=10.2 04/27/2023 19:00 BILIRUBIN TOTAL 0.8 mg/dL L=0.0 H=1.3 04/27/2023 19:00 ALK. PHOS. 90 U/L L=46 H=116 04/27/2023 19:00 SGOT (AST) 43 H U/L L=15 H=37 04/27/2023 19:00 SGPT (ALT) 52 U/L L=12 H=78 04/27/2023 19:00 TOTAL PROTEIN 7.9 gm/dL L=6.0 H=8.0 04/27/2023 19:00 ALBUMIN 3.6 gm/dL L=3.4 H=5.0 04/27/2023 19:00 MAGNESIUM 1.4 L mg/dL L=1.8 H=2.4 04/27/2023 19:00 EKG ORDER TRACING 12 LEAD 04/27/2023 18:52 POTASSIUM SERUM 2.9 LL mmol/L L=3.4 H=5.2 04/27/2023 17:34 EKG: EKG heart rate 93, normal sinus rhythm, QTc 457, there is a nonspecific ST abnormality present when compared to previous EKG. Problem List Hypomagnesemia Hypokalemia Anxiety Hypertension Obstructive sleep apnea Cardiomyopathy Plan # Hypokalemia # Hypomagnesemia Admit to MedSur, telemetry Serial laboratory monitoring Repeat EKG in a.m. Repeat troponin in a.m. 40 mEq potassium p.o. and 10 mEq IV potassium in ED 20 mEq potassium PO ordered for a.m. 2 g IV magnesium given in ED, additional 2 g IV administered Patient admitted as observation as I anticipate them to be here less than 2 midnights due to symptoms of hypokalemia, hypomagnesemia .
--- OUTSIDE RECORDS SUMMARY | 2023-08-20 22:16 | XMS_ITS | Encounter Summary ---
Author Organization [facility] [place] [address] Care Team Providers Care Ammunition Storage Superintendent Name Role Phone Ness Laws APRN Primary Care Provider Reason for Visit * Consultation (Routine) - Closed Specialty Diagnoses / Procedures Referred By León worley Referred To Contact Allergy Diagnoses Personal history of anaphylaxis Ness Laws APRN [address] [place] [address] [facility] All[facility] [address] [place] [id number] Referral ID Status Reason Start Date Expiration Date V isits Requested Visits Authorized [id number] Closed Consult, Test & Treat Connection Center PCP Updated and/or Approved 01/30/2020 01/29/2021 6 6 Encounter Details Date Type Department Care Team (Late st Contact Info) Description 07/02/2020 3:00 PM EDT [place] [address] Alisha Travis MD [facility] [place] [address] Drug intolerance Social History Tobacco Use Types Packs/Day Years Used Date Smoking Tobacco: Every Day Smokeless Tobacco: Never Sex and Gender Information Value Date Recorded Sex Assigned at Not on file Gender Identity Not on file Sexual Orientation Not on file documented as of this encounter Progress Notes * Alisha Travis MD - 07/02/2020 3:00 PM EDT CC: naloxone allergy HPI: Imelda Regan is a 40 y.o. female with a PMH of opioid use disorder presenting for evaluation of naloxone allergy at the request of Ness Laws. Patient states she is in recovery from opioid use. States she quit when , but after c section was back on painkillers. [place] need to seek again. Started buying buprenorphine on streets. Statesshe was taking different kinds of buprenorphine during this time. Different brands. No problems with buprenorphine tabs without naloxone. Then couldn't get more of this and obtained buprenorphine naloxone strip. States this is the is the only time she took the strip. Took it and went to bed. Woke up in middlle of night with hand and foot itching. Had anaphylactic shock and went to the ED. Told them it was peanut allergy due to embarrassment about use. Really thinks it was the suboxone film. States they gave her an epipen. States she still eats peanut with no problems. Took film around 7-8pm perhaps, this was a year ago so she is not sure. Went to hospital around 1am. Sx started around 10:30-11pm. Feet were itching, then hands were swollen and red, then freaked out - thinks had throat tightness but not sure if in head. Got diarrhea. [place] hot. [place] sweaty. [place] afraid. Got something in ED and felt better right away. States she was not currently using opioids at this time, only the buprenorphine. No exposure to naloxone since this. Never had an allergic reaction like this before. Has been sensitive to things but never a reaction like this. I do not have records of ED visit described above. ROS is per HPI otherwise negative. There is no problem list on file for this patient. Past Medical History: Diagnosis Date ??? Opioid use disorder Past Surgical History: Procedure Laterality Date ??? SECTION ??? gabapentin (Neurontin) 300 mg Capsule ??? cetirizine (ZyrTEC) 10 mg Tablet ??? ProAir HFA 90 mcg/actuation HFA Aerosol Inhaler ??? fluticasone propionate (FLONASE) 50 mcg/actuation [place], Suspension ??? buprenorphine (Subutex) 2 mg Tablet, Sublingual ??? naloxone 0.4 mg/mL Syringe No Known Allergies Family History Problem Relation Age of Onset ??? Allergic Rhinitis Maternal Aunt ??? Chronic Obstructive Pulmonary Disease Maternal Aunt ??? Allergic Rhinitis Maternal Grandmother ??? Chronic Obstructive Pulmonary Disease Maternal Grandmother ??? Eczema Other Social History Socioeconomic History ??? Marital status: Spouse name: Not on file ??? Number of children: Not on file ??? Years of education: Not on file ??? Highest education level: Not on file Occupational History ??? Not on file Tobacco Use ??? Smoking status: Current Every Day Smoker ??? Smokeless tobacco: Never Used Substance and Sexual Activity ??? Alcohol use: Not on file ??? Drug use: Yes Types: Marijuana ??? Sexual activity: Not on file Other Topics Concern ??? Not on file Social History Narrative ??? Not on file Social Determinants of Health Financial Resource Strain: ??? Difficulty of Paying Living Expenses: Food Insecurity: ??? Worried About Running Out of Food in the Last Year: ??? Ran Out of Food in the Last Year: Transportation Needs: ??? Lack of Transportation (Medical): ??? Lack of Transportation (Non-Medical): Physical Activity: ??? Days of Exercise per Week: ??? Minutes of Exercise per Session: PHYSICAL EXAM: There were no vitals taken for this visit. Gen: awake, alert, no acute distress Head: normocephalic, atraumatic EYES: Conjunctiva not injected or icteric. No discharge. No eyelid edema. ENT: Tympanic membranes clear, no lesions, erythema, or drainage. Normal external ear canals. Nasalpassages show normal mucosa, normal turbinates bilaterally, no lesions. OP mucosa well hydrated, clear without erythema or cobblestoning. No lesions or exudates. No visible OP edema. NECK: supple, symmetric, no masses, trachea midline LYMPH: no submandibular, cervical, or supraclavicular LAD CVS: RRR, no m/r/g LUNGS: CTAB, no wheezing or rales, breathing unlabored ABD: soft, non-tender, non-distended, bowel sounds present SKIN: no rashes, normal color, no mottling EXTREMITIES: warm and well-perfused, normal bulk, symmetric ROM, no edema NEURO: EOMI, no dysarthria PSYCH: normal grooming, appropriate mood and affect, normal volume/quantity/tone of speech, normal thought process and content ASSESSMENT AND PLAN: 40 y.o. female with itching, diarrhea, diaphoresis, anxiety after taking suboxone film. Per AAAAI: Clinically significant IgE-mediated hypersensitivity to naloxone has never been convincingly demonstrated... One could safely perform puncture and intradermal skin testing using naloxone at 0.16 mg/ml (0.0005 Molar) and then follow this up with a 4 mg nasal challenge to confirm current tolerance. If there is a reaction, check an acute serum tryptase... A naloxone 4 mg nasal challenge will induce opiate withdrawal in an addicted individual. Patient was counseled that there have been no convincing at this reported cases of naloxone allergy. It is unlikely that she experienced an allergic reaction to naloxone. It is thought that most reactions to naloxone are due to opioid withdrawal. Reaction was also delayed for an IgE-mediated process, (2.5-5h later by patient's estimate). We can try allergy skin testing to naloxone but this has not been validated. Patient is going to return for skin testing per her preference (we discussed thelimited validity of this. We will order supplies for her to come back for this and she was counseled she needs to be off antihistamines for 1 week. Alisha Travis MD * Oscar Murray RN - 07/02/2020 3:00 PM EDT Received orders for Naloxone skin test. Physicians order sent to inpatient pharmacy for review and availability. Patient appoitment on 08/26/20 documented in this encounter Plan of Treatment Not on file documented as of this encounter Visit Diagnoses Diagnosis Drug intolerance Other drug allergy documented in this encounter Care Teams Ammunition Storage Superintendent Relationship Specialty Start Date End Date Ness Laws APRN [address] [place] [address] PCP - General Family Medicine 02/28/20 documented as of this encounter
--- OUTSIDE RECORDS SUMMARY | 2023-08-20 22:16 | XMS_ITS | Encounter Summary ---
Author Organization [facility] Address [facility] [place] [address] Care Team Providers Care Receivables Specialist Name Role Phone Ness Laws APRN Primary Care Provider [phone] Encounter Details Date Type Department Care Team (Late st Contact Info) Description 10/03/2020 Orders [place] [address] Alisha Travis MD [facility] [place] [address] Drug intolerance Social History Tobacco Use Types Packs/Day Years Used Date Smoking Tobacco: Every Day Smokeless Tobacco: Never Sex and Gender Information Value Date Recorded Sex Assigned at Not on file Gender Identity Not on file Sexual Orientation Not on file documented as of this encounter Plan of Treatment Not on file documented as of this encounter Visit Diagnoses Diagnosis Drug intolerance Other drug allergy documented in this encounter Care Teams Receivables Specialist Relationship Specialty Start Date End Date Ness Laws APRN [address] [place] [address] PCP - General Family Medicine 02/28/20 documented as of this encounter
--- OUTSIDE RECORDS SUMMARY | 2023-08-20 22:16 | XMS_ITS | Encounter Summary ---
Author Organization [facility] [place] [address] Care Team Providers Care Dismantler Name Role Phone EusebiaNess tilley Ranjith MUÑIZ Primary Care Provider [phone] Encounter Details Date Type Department Care Team (Late st Contact Info) Description 08/08/2020 [place] [id number] Nimisha Gonzales, RN Social History Tobacco Use Types Packs/Day Years Used Date Smoking Tobacco: Every Day Smokeless Tobacco: Never Sex and Gender Information Value Date Recorded Sex Assigned at Not on file Gender Identity Not on file Sexual Orientation Not on file documented as of this encounter Miscellaneous Notes * Telephone Encounter - Nimisha Gonzales RN - 08/08/2020 3:29 PM EDT This sports book writer attempted to call Imelda at number provided and was told she was not there today. * Telephone Encounter - Nimisha Gonzales RN - 08/08/2020 3:28 PM EDT ----- Message from Delores Van sent at 08/08/2020 11:41 AM EDT ----- Regarding: Concerns about testing/return call to Dr. Angy Bhandari from the [facility] has called a few times regarding Imelda's upcoming testing. Imelda is feeling very apprehensive about it and has some questons, she would really like to hear back from a nurse before her appt on 08/26. Elisabet also wanted to thank Dr. Travis for calling her back, she apologizes, she was on vacation at the time. She is available all day today except between 1-2 and she is available all day tomorrow. She would like Dr. Travis to call the front desk assistant [phone] and ask them to find her. documented in this encounter Plan of Treatment Not on file documented as of this encounter Visit Diagnoses Not on filedocumented in this encounter Care Teams Dismantler Relationship Specialty Start Date End Date Ness Laws APRN [address] [place] [address] PCP - General Family Medicine 02/28/20 documented as of this encounter
--- OUTSIDE RECORDS SUMMARY | 2023-08-20 22:16 | XMS_ITS ---
Author Organization Unknown Address [address] [place] [phone] Phone Care Team Providers Care Bulb Tester Name Role Phone PROVOST HOROWITZ Attending Unavailable Results *MM SCREENING BILAT MAMMO W KRIS W CAD - Completed: 07/08/2023 11:50 LOINC: [facility] [place], [place] [address] [facility] REPORT Patient Name: RAYNA HICKEY MRN: Sex: : Age: [id number] O 1980 43 Account: Accession: Admit: StayType: [id number] 07/08/2023 O Ordered: Order ID: Submitted: Ordering Provider: 07/08/2023 11:24 [id number] CARLOS MANUEL DENG Completed: Technologist: Resulted: 07/08/2023 11:42 SCP 07/08/2023 11:55 FINAL REPORT EXAM: MM SCREENING BILAT MAMMO W KRIS W CAD CLINICAL HISTORY: Reason for Mammo: Screening TECHNIQUE: Mammograms were interpreted according to the usual protocol including computer analysis with CAD system, tomosynthesis and C-view imaging. COMPARISON: 2020 and 2022 FINDINGS: The breasts are composed of scattered fibroglandular densities, Breast Density category B. No suspicious masses or suspicious microcalcifications are seen. No skin thickening or abnormal axillary lymph nodes are seen. There has been no significant change from prior exams. IMPRESSION: BI-RADS Category 1, Negative mammogram Yearly screening mammography is recommended. Breast Density - Category B, scattered fibroglandular densities. Breast density category C and D indicates that the patient's breast tissue is dense. Dense breast tissue is very common and is not abnormal but dense breast tissue can make it harder to find cancer on a mammogram. Also, dense breast tissue may increase breast cancer risk. This information about the result of the mammogram report was provided to the patient to raise their awareness. Use this report when you speak with the patient about their risks for breast cancer, which includes their family history. At that time, you may recommend additional screening tests (Ultrasound or MRI) as they might be useful based on their risk. A negative radiographic report should not delay biopsy if a dominant or clinically suspicious mass is present. Up to ten percent of cancers are not identified on mammography. A negative report may reinforce clinical impression. Adenosis and dense breasts may obscure an underlying neoplasm. False positive reports average 6 to 10%. Patient will receive a letter notifying them of these results. Electronically signed by: Kitty Ding Dictated: 07/08/2023 11:55 Social History Type Status Start Date End Date Code Code Syst em Smoking History Former smoker 12/20/19974929 3387846 SNOMED CT Sex Female Medications Medication Start Date End Date Route Frequency Dose Code Code System Medication Instructions Home Meds Low Dose Aspirin 81MG Oral Tablet, Enteric Coated 04/11/2022 Unknown ORAL DAILY WITH FOOD 81 MILLIGRAMS 871782 RxNorm TAKE 81 MILLIGRAMS ORAL DAILY WITH FOOD Metoprolol Succinate 50MG Oral Tablet, Extended Release 04/11/2022 Unknown ORAL DAILY 50 MILLIGRAMS [id number] RxNorm TAKE 50 MILLIGRAMS ORAL DAILY Entresto 24MG-26MG Oral Tablet 04/11/2022 Unknown ORAL TWICE A DAY 1 TABLET [id number] RxNorm TAKE 1 TABLET ORAL TWICE A DAY Albuterol Sulfate HFA 0.09MG/1Actua tion Inhalation Suspension 04/11/2022 Unknown INHALATIO N 1 unit(s) 2638801 RxNorm 1 EACH INHALATION Buprenorphine 2MG Sublingual Tablet 04/11/2022 Unknown SUBLINGUA L noon 2 MILLIGRAMS 622296 RxNorm DISSOLVE 2 MILLIGRAMS SUBLINGUAL noon Buprenorphine 2MG Sublingual Tablet 04/11/2022 Unknown SUBLINGUA L TWICE A DAY 4 MILLIGRAMS 271360 RxNorm DISSOLVE 4 MILLIGRAMS SUBLINGUAL TWICE A DAY Gabapentin 300MG Oral Capsule 04/11/2022 Unknown ORAL NEEDED TWICE DAILY 300 MILLIGRAMS 918397 RxNorm TAKE 300 MILLIGRAMS ORAL NEEDED TWICE DAILY Torsemide 20MG Oral Tablet 04/11/2022 Unknown ORAL DAILY 1 TABLET [id number] RxNorm TAKE 1 TABLET ORAL DAILY Krysten Allergy 180MG Oral Tablet 04/28/2023 Unknown ORAL DAILY 180 MILLIGRAMS 937606 RxNorm TAKE 180 MILLIGRAMS ORAL DAILY Jardiance 10MG Oral Tablet 04/28/2023 Unknown ORAL DAILY 10 MILLIGRAMS 5696540 RxNorm TAKE 10 MILLIGRAMS ORAL DAILY Spironolacton e 25MG Oral Tablet 04/28/2023 Unknown ORAL DAILY 12.5 MILLIGRAMS 601992 RxNorm TAKE 12.5 MILLIGRAMS ORAL DAILY Potassium Chloride 10MEQ Oral Tablet, Extended Release 04/28/2023 Unknown ORAL DAILY 1 TABLET 090071 RxNorm TAKE 1 TABLET ORAL DAILY Assessment [...] Date Status Code Code System HYPOKALEMIA active 24451623 SNOMED-C T HYPOMAGNESEMIA active 526847194 SNOME D-CT CARDIOMYOPATHY active 16271990 SNOME D-CT OBSTRUCTIVE SLEEP APNEA active 572674 09 SNOMED-CT HYPERTENSION active 24081167 SNOMED- CT ANXIETY active 32296711 SNOMED-CT ANGIOEDEMA 04/27/2023 resolved 30193069 SNOMED-C T Allergies and Adverse Reactions Allergy Substance Reaction Severity Start Date Concern Status Code Code System FUROSEMIDE Anaphylaxis (SNOMED-CT: 31399660) Active 4603 RxNorm NALOXONE Anaphylaxis (SNOMED-CT: 69601142) Active 7242 RxNorm HYDROCODONE Headache (SNOMED-CT: 26441973), NAUSEA (SNOMED-CT: 904681179), Nausea (SNOMED-CT: 381392106) Active 5489 RxNorm RITALIN Anaphylaxis (SNOMED-CT: 88711651) Active 916306 RxNorm ALMOND Anaphylaxis (SNOMED-CT: 88163101) 04/08/2018 Active 764599227 SNOMED-CT Plan of Treatment MM SCREEN BILAT 07/08/2023 MM SCREEN BILAT 05/12/2022 MM SCREEN BILAT 03/23/2022 MM SCREEN BILAT 12/02/2020 US ABDOMEN COMPLETE 10/06/2021 US ABDOMEN LIMITED 1 ORGAN 05/12/2022 US ABDOMEN LIMITED 1 ORGAN 03/18/2022 Encounters Encounter Diagnosis Start Date Code Code Sys tem Screening mammography 07/08/2023 81066942 SNOMED -CT Personal Care Team Section Performer Name Performer Role Active Date Inactive Dexter melendrez
--- OUTSIDE RECORDS SUMMARY | 2023-08-20 22:16 | XMS_ITS | Referral Summary ---
Author Organization [facility] Address [address] [place] [address] Care Team Providers Care Professor Of Languages Name Role Phone Sharron Cintron MD Primary Care Provider [phone] Allergies No known active allergies Medications Medication Sig Dispensed Refills Start Date End Date Status methylphenidate HCl (RITALIN;METHYLIN) 5 mg tablet Take 20 mg by mouth 3 times daily. Active torsemide (DEMADEX) 20 mg tablet Take 20 mg by mouth daily. Active metoprolol SUCCinate 50 mg capsule,sprinkle,ER 24hr Take 50 mg by mouth daily. Active sacubitriL-valsartan (ENTRESTO) 24-26 mg tablet Take 1 Tablet by mouth 2 times daily. Active gabapentin (NEURONTIN) 300 mg capsule Take 300 mg by mouth 2 times daily. Active loratadine 10 mg capsule Take 10 mg by mouth daily. Active fluticasone propionate (FLONASE) 50 mcg/actuation nasal spray Instill 100 mcg into both nostrils daily. Active vit,oneil 16-jrsa-aippf ( LOW IRON) 27 mg iron- 1 mg tablet Take by mouth daily. Active iron-folic fgut-T-K33-biotin 75 mg iron- 1 mg-175 mg capsule,ext release multiphase Take by mouth daily. Active aspirin chewable 81 mg tablet Take 81 mg by mouth daily. Active Active Problems No known active problems Social History Tobacco Use Types Packs/Day Years Used Date Smoking Tobacco: Former Cigarettes Q uit: 04/08/2022 Smokeless Tobacco: Never Tobacco Cessation:Counseling Given: Not Answered Alcohol Use Standard Drinks/Week Comments Not Currently 4 (1 standard drink = 0.6 oz pur e alcohol) no longer daily Interpersonal Safety Answer Date Record ed Physically Hurt Never 09/10/2019 Verbally Threaten Not on file 09/10/2019 Sex and Gender Information Value Date Recorded Sex Assigned at Not on file Gender Identity Female 05/22/2022 10:01 EDT Sexual Orientation Not on file Last Filed Vital Signs Vital Sign Reading Time Taken Comments Blood Pressure 122/103 05/22/2022 1630 EDT patien t movement Pulse 98 02/10/2018 1122 EST Temperature 36.4 ??C (97.5 ??F) 05/22/2022 1455 EDT Respiratory Rate 14 05/22/2022 1630 EDT Oxygen Saturation 96% 05/22/2022 1630 EDT Inhaled Oxygen Concentration - - Weight 102.4 kg (225 lb 12 oz) 05/22/2022 1022 EDT Height 158.8 cm (5' 2.5) 05/22/2022 1022 EDT Body Mass Index 40.63 05/22/2022 1022 EDT Plan of Treatment Upcoming Encounters Date Type Department Care Team (Late st Contact Info) Description 10/22/2023 12:30 EDT Ancillary Procedure [facility] Vascular Surgery [address] [address] 10/22/2023 13:15 EDT Initial consult [facility] Vascular Surgery [address] [address] Pedrito Plascencia MD [address] [place] [address], [address] [place] [id number] Procedures Procedure Name Priority Date/Time Associated Diagnosis Comments HEPATITIS C AB W REFLEX TO HCV RNA BY PCR Today 06/06/2019 10:45 EDT Abnormal weight gain Hereditary and idiopathic neuropathy, unspecified from Last 3 Months or Most Recently Relevant to Health Maintenance Results * HEPATITIS C AB W REFLEX TO HCV RNA BY PCR (06/06/2019 10:45 EDT) Hep C Antibody Negative Negative 06/09/2019 15:22 EDT [facility] Blood VENOUS BLOOD / Unknown Non-Lab Collect / Unknown 06/06/2019 10:45 EDT 06/06/2019 14:29 EDT Rebecca EVANSP-Greg CHEMISTRY & BLOOD G ORDERABLES [facility] [address] [place] [address] from Last 3 Months or Most Recently Relevant to Health Maintenance Advance Directives For more information, please contact: [phone] * Full Code (Latest Code Status on File) Date Activated Date Inactivated Comments 05/22/2022 10:14 05/22/2022 19:40 Question Answer Comments When the patient has NO PULSE: Full Code / CPR Who Made the Decision? Default/Not Discussed Care Teams Professor Of Languages Relationship Specialty Start Date End Date Sharron Cintron MD [address] [address] PCP - General 06/06/18
--- OUTSIDE RECORDS SUMMARY | 2023-08-20 22:16 | XMS_ITS | Clinical Summary ---
Author Organization [facility] Address [address] [place] [address] Care Team Providers Care Center Consultant Name Role Phone Sharron Cintron MD Primary Care Provider [phone] Allergies No known active allergies Medications Medication [...] mcg into both nostrils daily. Active vit,oneil 43-uymo-nbuzi ( LOW IRON) 27 mg iron- 1 mg tablet Take by mouth daily. Active iron-folic uank-L-M09-biotin 75 mg iron- 1 mg-175 mg capsule,ext release multiphase Take by mouth daily. Active aspirin chewable 81 mg tablet Take 81 mg by mouth daily. Active Active Problems No known active problems Surgical History Surgery Date Site/Laterality Comments SECTION x3 LEEP x2 TONSILLECTOMY Medical History Medical History Date Comments Asthma CHF (congestive heart failure) ([facility]) Social History Tobacco Use Types Packs/Day Years [...] 10:01 EDT Sexual Orientation Not on file Obstetrics History Last Filed Vital Signs Vital Sign Reading [...] Info) Description 10/22/2023 12:30 EDT Ancillary Procedure [facility] V[facility] Surgery [address] [id number] 10/22/2023 13:15 EDT Initial consult [facility] Surgery [address] [id number] Pedrito Plascencia MD [address] [place] [address], [address] [place] [phone] Health Maintenance Due Date Last Done Comments Pneumococcal Immunization (1 of 2 - PCV) 01/01/1986 Hepatitis B Vaccine (1 of 3 - 19+ 3-dose series) 01/01 COVID-19 Vaccine (1 - season) 2022 Hepatitis C Screen Completed 06/06/2019 Procedures Procedure Name Priority Date/Time Associated Diagnosis [...] C Antibody Negative Negative 06/09/2019 15:22 EDT [facility] Blood VENOUS BLOOD / Unknown Non-Lab Collect / Unknown 06/06/2019 10:45 EDT 06/06/2019 14:29 EDT Rebecca Graham MUSICAL INSTRUMENT SUPERVISOR-C CHEMISTRY & BLOOD G ORDERABLES [facility] [address] [place] [address] from Last 3 Months or Most Recently Relevant to Health Maintenance Advance Directives For more information, please contact: [phone] * Full Code (Latest Code Status on File) Date Activated Date Inactivated Comments 05/22/2022 10:14 05/22/2022 19:40 Question Answer Comments When the patient has NO PULSE: Full Code / CPR Who Made the Decision? Default/Not Discussed Care Teams Center Consultant Relationship Specialty Start Date End Date Sharron Cintron MD [address] [phone] PCP - General 06/06/18
--- OUTSIDE RECORDS SUMMARY | 2023-08-20 22:16 | XMS_ITS ---
Author Organization Unknown Address [address] [place] [phone] Phone Care Team Providers Care Handbag Finisher Name Role Phone TWILA Shanks Attending Unavailable Social History Type Status Start Date End Date Code Code Syst em Smoking History Former smoker 12/20/19974120 5833942 SNOMED CT Sex Female Medications Medication Start Date End Date Route Frequency Dose Code Code System Medication Instructions Home Meds Low Dose Aspirin 81MG Oral Tablet, Enteric Coated 04/11/2022 Unknown ORAL DAILY WITH FOOD 81 MILLIGRAMS 074562 RxNorm TAKE 81 MILLIGRAMS ORAL DAILY WITH FOOD Metoprolol Succinate 50MG Oral Tablet, Extended Release 04/11/2022 Unknown ORAL DAILY 50 MILLIGRAMS 269811 RxNorm TAKE 50 MILLIGRAMS ORAL DAILY Entresto 24MG-26MG Oral Tablet 04/11/2022 Unknown ORAL TWICE A DAY 1 TABLET 1047501 RxNorm TAKE 1 TABLET ORAL TWICE A DAY Albuterol Sulfate HFA 0.09MG/1Actua tion Inhalation Suspension 04/11/2022 Unknown INHALATIO N 1 unit(s) 2040791 RxNorm 1 EACH INHALATION Buprenorphine 2MG Sublingual Tablet 04/11/2022 Unknown SUBLINGUA L noon 2 MILLIGRAMS 475831 RxNorm DISSOLVE 2 MILLIGRAMS SUBLINGUAL noon Buprenorphine 2MG Sublingual Tablet 04/11/2022 Unknown SUBLINGUA L TWICE A DAY 4 MILLIGRAMS 929676 RxNorm DISSOLVE 4 MILLIGRAMS SUBLINGUAL TWICE A DAY Gabapentin 300MG Oral Capsule 04/11/2022 Unknown ORAL NEEDED TWICE DAILY 300 MILLIGRAMS 356207 RxNorm TAKE 300 MILLIGRAMS ORAL NEEDED TWICE DAILY Torsemide 20MG Oral Tablet 04/11/2022 Unknown ORAL DAILY 1 TABLET 942128 RxNorm TAKE 1 TABLET ORAL DAILY Krysten Allergy 180MG Oral Tablet 04/28/2023 Unknown ORAL DAILY 180 MILLIGRAMS 708695 RxNorm TAKE 180 MILLIGRAMS ORAL DAILY Jardiance 10MG Oral Tablet 04/28/2023 Unknown ORAL DAILY 10 MILLIGRAMS 3090843 RxNorm TAKE 10 MILLIGRAMS ORAL DAILY Spironolacton e 25MG Oral Tablet 04/28/2023 Unknown ORAL DAILY 12.5 MILLIGRAMS 327045 RxNorm TAKE 12.5 MILLIGRAMS ORAL DAILY Potassium Chloride 10MEQ Oral Tablet, Extended Release 04/28/2023 Unknown ORAL DAILY 1 TABLET 415228 RxNorm TAKE 1 TABLET ORAL DAILY Assessment [...] Date Status Code Code System HYPOKALEMIA active 89676768 SNOMED-C T HYPOMAGNESEMIA active 452988836 SNOME D-CT CARDIOMYOPATHY active 65829560 SNOME D-CT OBSTRUCTIVE SLEEP APNEA active 657502 09 SNOMED-CT HYPERTENSION active 82631564 SNOMED- CT ANXIETY active 57362497 SNOMED-CT ANGIOEDEMA 04/27/2023 resolved 99851428 SNOMED-C T Allergies and Adverse Reactions Allergy Substance Reaction Severity Start Date Concern Status Code Code System FUROSEMIDE Anaphylaxis (SNOMED-CT: 33574763) Active 4603 RxNorm NALOXONE Anaphylaxis (SNOMED-CT: 56983766) Active 7242 RxNorm HYDROCODONE Headache (SNOMED-CT: 31645807), NAUSEA (SNOMED-CT: 583298815), Nausea (SNOMED-CT: 525489643) Active 5489 RxNorm RITALIN Anaphylaxis (SNOMED-CT: 95918457) Active 423044 RxNorm ALMOND Anaphylaxis (SNOMED-CT: 59442565) 04/08/2018 Active 453161991 SNOMED-CT Plan of Treatment MM SCREEN BILAT [...]
--- OUTSIDE RECORDS SUMMARY | 2023-08-20 22:16 | XMS_ITS ---
Author Organization Unknown Address [address] [place] [address] [phone] Phone Care Team Providers Care Gis Specialist Name Role Phone ISH CARLOS MANUEL Attending Unavailable Results POTASSIUM SERUM - Collect Da te/Time: 05/21/2023 10:26 [facility] ID: [id number] [address] [place] [address], [id number] LOINC: 2823-3 Test Value Unit Reference Range Code Code System Flag POTASSIUM SERUM 4.0 mmol/L L=3.4 H=5.2 2823-3 LOINC Social History Type Status Start Date End Date Code Code Syst em Smoking History Former smoker 12/20/19972831 4796226 SNOMED CT Sex Female Medications Medication Start Date End Date Route Frequency Dose Code Code System Medication Instructions Home Meds Low Dose Aspirin 81MG Oral Tablet, Enteric Coated 04/11/2022 Unknown ORAL DAILY WITH FOOD 81 MILLIGRAMS 574563 RxNorm TAKE 81 MILLIGRAMS ORAL DAILY WITH FOOD Metoprolol Succinate 50MG Oral Tablet, Extended Release 04/11/2022 Unknown ORAL DAILY 50 MILLIGRAMS 232146 RxNorm TAKE 50 MILLIGRAMS ORAL DAILY Entresto 24MG-26MG Oral Tablet 04/11/2022 Unknown ORAL TWICE A DAY 1 TABLET 5047703 RxNorm TAKE 1 TABLET ORAL TWICE A DAY Albuterol Sulfate HFA 0.09MG/1Actua tion Inhalation Suspension 04/11/2022 Unknown INHALATIO N 1 unit(s) 9123397 RxNorm 1 EACH INHALATION Buprenorphine 2MG Sublingual Tablet 04/11/2022 Unknown SUBLINGUA L noon 2 MILLIGRAMS 912709 RxNorm DISSOLVE 2 MILLIGRAMS SUBLINGUAL noon Buprenorphine 2MG Sublingual Tablet 04/11/2022 Unknown SUBLINGUA L TWICE A DAY 4 MILLIGRAMS 824033 RxNorm DISSOLVE 4 MILLIGRAMS SUBLINGUAL TWICE A DAY Gabapentin 300MG Oral Capsule 04/11/2022 Unknown ORAL NEEDED TWICE DAILY 300 MILLIGRAMS 041258 RxNorm TAKE 300 MILLIGRAMS ORAL NEEDED TWICE DAILY Torsemide 20MG Oral Tablet 04/11/2022 Unknown ORAL DAILY 1 TABLET 679616 RxNorm TAKE 1 TABLET ORAL DAILY Krysten Allergy 180MG Oral Tablet 04/28/2023 Unknown ORAL DAILY 180 MILLIGRAMS 055818 RxNorm TAKE 180 MILLIGRAMS ORAL DAILY Jardiance 10MG Oral Tablet 04/28/2023 Unknown ORAL DAILY 10 MILLIGRAMS 5317095 RxNorm TAKE 10 MILLIGRAMS ORAL DAILY Spironolacton e 25MG Oral Tablet 04/28/2023 Unknown ORAL DAILY 12.5 MILLIGRAMS 182129 RxNorm TAKE 12.5 MILLIGRAMS ORAL DAILY Potassium Chloride 10MEQ Oral Tablet, Extended Release 04/28/2023 Unknown ORAL DAILY 1 TABLET 135174 RxNorm TAKE 1 TABLET ORAL DAILY Assessment [...] Date Status Code Code System HYPOKALEMIA active 99896678 SNOMED-C T HYPOMAGNESEMIA active 508218746 SNOME D-CT CARDIOMYOPATHY active 05722378 SNOME D-CT OBSTRUCTIVE SLEEP APNEA active 962949 09 SNOMED-CT HYPERTENSION active 85571817 SNOMED- CT ANXIETY active 10391895 SNOMED-CT ANGIOEDEMA 04/27/2023 resolved 76792010 SNOMED-C T Allergies and Adverse Reactions Allergy Substance Reaction Severity Start Date Concern Status Code Code System FUROSEMIDE Anaphylaxis (SNOMED-CT: 18995710) Active 4603 RxNorm NALOXONE Anaphylaxis (SNOMED-CT: 99460927) Active 7242 RxNorm HYDROCODONE Headache (SNOMED-CT: 03535950), NAUSEA (SNOMED-CT: 927916144), Nausea (SNOMED-CT: 408138848) Active 5489 RxNorm RITALIN Anaphylaxis (SNOMED-CT: 17528861) Active 163399 RxNorm ALMOND Anaphylaxis (SNOMED-CT: 29692515) 04/08/2018 Active 178393834 SNOMED-CT Plan of Treatment MM SCREEN BILAT 07/08/2023 MM SCREEN BILAT 05/12/2022 MM SCREEN BILAT 03/23/2022 MM SCREEN BILAT 12/02/2020 US ABDOMEN COMPLETE 10/06/2021 US ABDOMEN LIMITED 1 ORGAN 05/12/2022 US ABDOMEN LIMITED 1 ORGAN 03/18/2022 Encounters Encounter Diagnosis Start Date Code Code Sys tem Hypokalemia 05/21/2023 43247536 SNOMED-CT Personal Care Team Section Performer Name Performer Role Active Date Inactive Da parvin
--- OUTSIDE RECORDS SUMMARY | 2023-08-20 22:16 | XMS_ITS | Encounter Summary ---
Author Organization [facility] Address [address] [place] [address] Care Team Providers Care Stock Associate Name Role Phone Sharron Cintron MD Primary Care Provider [phone] Reason for Visit * Reason Onset Date Comments Appointment Related 08/18/2022 fcp Encounter Details Date Type Department Care Team (Late st Contact Info) Description 08/18/2022 Telephone [facility] Hematology & Oncology - Main [address] [address] Fcp, Provider, Appointment Related (fcp) Social History [...] * Telephone Encounter - Graciela Jacobs - 08/18/2022 1054 EDT Called and LVMOM for patient following up on FCP referral. Left my direct number (2nd attempt) documented in this encounter Plan of Treatment Upcoming Encounters Date Type Department Care Team (Late st Contact Info) Description 10/22/2023 12:30 EDT Ancillary Procedure [facility] Vascular Surgery [address] [address] 10/22/2023 13:15 EDT Initial consult [facility] Vascular Surgery [address] [address] Pedrito Plascencia MD [address] [place] [address], [address] [place] [phone] documented as of this encounter Visit Diagnoses Not on filedocumented in this encounter Care Teams Stock Associate Relationship Specialty Start Date End Date Sharron Cintron MD [address] [address] PCP - General 06/06/18 documented as of this encounter
--- OUTSIDE RECORDS SUMMARY | 2023-08-20 22:17 | XMS_ITS | Encounter Summary ---
Author Organization [facility] Address [address] [place] [address] Care Team Providers Care Gold And Silver Assayer Name Role Phone Unavailable Primary Care Provider Unavailabl e Encounter Details Date Type Department Care Team (Late st Contact Info) Description 04/01/2005 Results Only [facility] conversion [address] [place] [address] Ember Meehan MD [address] [place] [address] Social History Tobacco Use Types Packs/Day Years Used Date Smoking Tobacco: Never Assessed Sex and Gender Information Value Date Recorded Sex Assigned at Not on file Gender Identity Female 05/22/2022 10:01 EDT Sexual Orientation Not on file documented as of this encounter Plan of Treatment Upcoming Encounters Date Type Department Care Team (Late st Contact Info) Description 10/22/2023 12:30 EDT Ancillary Procedure [facility] Vascular Surgery [address] [address] 10/22/2023 13:15 EDT Initial consult [facility] Vascular Surgery - [facility] [address] [place] [address] Pedrito Plascencia MD [address] [facility], [facility], [address] [place] [phone] documented as of this encounter Procedures Procedure Name Priority Date/Time Associated Diagnosis Comments SURGICAL PATHOLOGY Routine 04/01/2005 0:00 EST documented in this encounter Results * SURGICAL PATHOLOGY (04/01/2005 0:00 EST) Pathology Report: SURGICAL PATHOLOGY REPORT Reports generated via electronic interface contain original data; however they are lacking the format of the original report. Caution should be taken when reading/interpreting unformatted reports. Name: ? RAYNA WOOD ? Accession #: ? [id number] ? : ? 1980 (Age: 25) ??F ? Collect Date: ? 04/01/2005 ? Location: ? [facility] ? Receive Date: ? 04/01/2005 ? Provider: EMBER MEEHAN MD Copy to: SOLIS MALDONADO MD ? Final Pathologic Diagnosis: ? 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 ??See comment. Comment: ? Thank you for the opportunity to review this case in consultation. Political Director sections have also been reviewed at intradepartmental consultation conference. (Dr. Calderon) Document reviewed and electronically signed by: DIVINA CALDERON MD Report ??Date: 04/02/2005 17:44 By the signature above, the attending physician certifies that he/she has personally conducted a gross and/or microscopic examination of the described specimens and rendered or confirmed the above diagnosis. Specimen(s) Received: ? [facility] OP [id number] (3) Clinical History: ? Abnl Pap Gross Description: ? Three slides are received for review from [facility], one each labeled [id number], [id number] dpr 1-3, [id number] dpr 4-6. ?? End of Report [facility] 04/01/2005 04/01/2005 13: 34 EST Ember Meehan MD PATHOLOGY ORDERABLES Performing Organization Address City/State/[facility] Co de Phone Number [facility] [address] [place] [address] documented in this encounter Visit Diagnoses Not on filedocumented in this encounter
--- OUTSIDE RECORDS SUMMARY | 2023-08-20 22:17 | XMS_ITS | Encounter Summary ---
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 05/22/22 0935 Posted [facility] Bindery Machine Setter Bindery Machine Setter [facility] Outpatient Procedure H - Elective Panel 1 Procedure LRB Anes Op Region Wound Class Comments LEFT HEART CATH N/A None Chest Surgeon Surgeon Role Service Panel Sage Vaca MD Primary Cardiovascular 1 Martha Anglin Fellow Interventional Cardiology 1 Magalys Ham MD Fellow Interventional Cardiolog y 1 Case Notes [id number] documented in this encounter Social History Tobacco Use Types Packs/Day Years [...] on file documented as of this encounter Last Filed Vital Signs Vital Sign Reading Time Taken Comments Blood Pressure 102/64 05/22/2022 1022 EDT Pulse - - Temperature 36.6 ??C (97.9 ??F) 05/22/2022 1022 EDT Respiratory Rate 14 05/22/2022 1022 EDT Oxygen Saturation 97% 05/22/2022 1022 EDT Inhaled Oxygen Concentration - - Weight 102.4 kg (225 lb 12 oz) 05/22/2022 1022 E DT Height 158.8 cm (5' 2.5) 05/22/2022 1022 EDT Body Mass Index 40.63 05/22/2022 1022 EDT documented in this encounter Discharge Instructions * Discharge Instructions* Jaxson Alan RN - 05/22/2022 16:30 EDT Diagnostic Cardiovascular Catheterization Discharge Instructions Department of Cardiology Rayna Regan, your Procedure was performed by Dr. Vaca . You have had a Cardiovascular Catheterization performed through a small incision in the artery in your right wrist. Your artery was closed using the following method: TR band Care of your Incision: For your right wrist incision, keep the area clean & dry. Leave the sterile dressing in place for 24 hours. After this you may shower but no tub baths, swimming, or hot tubs for 5 days. You may remove your dressing the next day in the shower & wash area gently. (It is best to soak the dressing off with water in the shower. ) Apply a sterile bandage such as a Band Aid to the site after your shower daily until the site heals. DO NOT apply powder or lotion or antibiotic ointment to this area. Activity: Unless your physician instructs you otherwise, continue to drink a lot of fluids for the next 24 hours to flush the dye out of your system. Avoid Driving x 24 hours. If you had an ARM approach, Keep your arm comfortably straight for the first 24 hours and AVOID Bending or Lifting with your ARM for 48-72 hours. No Heavy lifting (>10 pounds) for one week. Normal Observations: Soreness or tenderness at the site that may last one week. Bruising that could last 2 weeks. Formation of a small lump (dime to quarter size) which may last up to 6 weeks. Call your Physician immediately if you experience any of the following: Fever (temp >101), swelling, redness or signs of infection (including yellow discharge). Persistent and increasing pain at the site of the wound, in your extremity or your back. Numbness or tingling at a point below the wound Skin Rash If you have not been able to Urinate within 24 hours of the procedure. *If you note any signs of bleeding, such as bulging under the skin (size of a golf ball or larger)put Direct Pressure on the area and Call your Doctor immediately.If bleeding persists after 10 minutes with pressure held call 911. *Please make a follow-up appointment with your Primary Care Physician 2 weeks after your Cardiac Catheterization was performed. documented in this encounter Medications at Time of Discharge Medication Sig Dispensed Refills Start Date End Date aspirin chewable 81 mg tablet Take 81 mg by mouth daily. fluticasone propionate (FLONASE) 50 mcg/actuation nasal spray Instill 100 mcg into both nostrils daily. gabapentin (NEURONTIN) 300 mg capsule Take 300 mg by mouth 2 times daily. iron-folic ljtt-U-U98-biotin 75 mg iron- 1 mg-175 mg capsule,ext release multiphase Take by mouth daily. loratadine 10 mg capsule Take 10 mg by mouth daily. methylphenidate HCl (RITALIN;METHYLIN) 5 mg tablet Take 20 mg by mouth 3 times daily. metoprolol SUCCinate 50 mg capsule,sprinkle,ER 24hr Take 50 mg by mouth daily. vit,oneil 74-bbtp-xfvkj ( LOW IRON) 27 mg iron- 1 mg tablet Take by mouth daily. sacubitriL-valsartan (ENTRESTO) 24-26 mg tablet Take 1 Tablet by mouth 2 times daily. torsemide (DEMADEX) 20 mg tablet Take 20 mg by mouth daily. documented as of this encounter Discharge Disposition Disposition Code Departure Means Destination Home or Self Care Wheelchair Home documented in this encounter Progress Notes * Pedro Wells, RN - 05/20/2022 1008 EDT Precardiac Cath Nursing Checklist Recent Labs: Lab Results Component Value Date BUN 11 06/06/2019 CREATININE 0.56 06/06/2019 HGB 13.3 06/06/2019 CALCGFR 118 06/06/2019 Hgt: Height: 157.5 cm (62) Wgt:Weight : (!) 105.7 kg (233 lb) Allergies: No Known Allergies Local Pharmacy [id number] - [place], [place] - [address] AT [facility] [address] [facility] [address] [place] [facility] [id number] Cardiac History: Stress Test? No Reason for Cath: cardiomyopathy Anginal equivalent:: Cardiac Procedures: no Stent Type/Size: Cardiac surgery: no Medical/Surgical History: Patient has a past medical history of Asthma and CHF (congestive heart failure) (HCC-CMS) (HCC) (HCC-CMS). Patient has a past surgical history that includes section. Chronic Risk Factors: Previous Heart Fx, Chronic Lung Dx and NILDA on CPAP Smoking and Alcohol intake: reports that she has been smoking cigarettes. She has been smoking an average of .5 packs per day. She has quit using smokeless tobacco. She reports current alcohol use ofabout 14.0 standard drinks per week. History of complications from sedation: No Patient Instructions: Patient Instructed by: Patient instructed by Advanced Testing Nurse NPO Instructions: Patient/family instructed to have no solid food after midnight and to stop drinking clear liquids 3 hours prior to registration time. Diabetic Pre procedure Instructions: N/A Shower Instructions: Patient/family instructed to shower the night before or the day of the procedure. Registration location: Patient/family instructed to register on the 3rd floor [facility]. Transportation Issues: No Patient/family instructed that they will need a designated catering driver if they are discharged on the dayof the procedure. Medications: Medication list: Patient/family instructed to bring medication list with them on the day of the procedure. Anticoagulants/Antiplatelets: Takes Aspirin 81 mg daily Anti-Anginal meds: B-Blockers Pt will hold Torsemide PEDRO WELLS RN * Pedro Wells RN - 05/18/2022 1013 EDT Attempting to reach pt regading [facility] instructions, unable to leave VM. documented in this encounter H&P Notes * Martha Anglin - 05/22/2022 1222 EDT Images from the original note were not included. Cardiology Pre-Cardiac Catheterization H&P PCP: Sharron Cintron Date of Service: 05/22/2022 Chief Complaint: HFrEF HPI The patient is a 42 yo F with past medical history significant of NILDA not on CPAP, remote tobacco use, remote opioid use, who presents with SOB, and HF symptoms and is referred for left heart catheterization.eleni worley was evaluated in mar 2022 with ongoign SOB with exertion, orthopnea and PND. She ultimately was admitted for HF. Of note, she did have COVID a month prior to the presentation.and found tohave an EF of 25% with diffuse hypokinesis. No past reactions to anesthesia or sedation. No asthma, nasal congestion, apnea, snoring, fevers. Review of Systems Pertinent positives: The remainder of the 10 point review of systems is negative. Past Medical History: Past Medical History: Diagnosis Date ??? Asthma ??? CHF (congestive heart failure) (HCC-CMS) (HCC) ([facility]-CMS) Past Surgical History: Past Surgical History: Procedure Laterality Date ??? SECTION x3 ??? LEEP x2 ??? TONSILLECTOMY Social History: Social History Socioeconomic History ??? Marital status: Spouse name: Not on file ??? Number of children: Not on file ??? Years of education: Not on file ??? Highest education level: Not on file Occupational History ??? Not on file Tobacco Use ??? Smoking status: Former Packs/day: 0.50 Types: Cigarettes Quit date: 04/08/2022 Years since quittin.1 ??? Smokeless tobacco: Never Vaping Use ??? Vaping Use: Not on file Substance and Sexual Activity ??? Alcohol use: Not Currently Alcohol/week: 4.0 - 5.0 standard drinks Types: 4 - 5 Shots of liquor per week Comment: no longer daily ??? Drug use: Not Currently Types: Marijuana Comment: occasional gummy for pain ??? Sexual activity: Yes Partners: Male Other Topics Concern ??? Not on file Social History Narrative ??? Not on file Social Determinants of Health Financial Resource Strain: Not on file Food Insecurity: Not on file Transportation Needs: Not on file Physical Activity: Not on file Stress: Not on file Social Connections: Not on file Housing Stability: Not on file Family History: History reviewed. No pertinent family history. Home Medications: No current facility-administered medications on file prior to encounter. Current Outpatient Medications on File Prior to Encounter Medication Sig Dispense Refill ??? aspirin chewable 81 mg tablet Take 81 mg by mouth daily. ??? fluticasone propionate (FLONASE) 50 mcg/actuation nasal spray Instill 100 mcg into both nostrils daily. ??? gabapentin (NEURONTIN) 300 mg capsule Take 300 mg by mouth 2 times daily. ??? iron-folic ojjf-F-I10-biotin 75 mg iron- 1 mg-175 mg capsule,ext release multiphase Take by mouth daily. ??? loratadine 10 mg capsule Take 10 mg by mouth daily. (Patient not taking: Reported on 05/22/2022) ??? methylphenidate HCl (RITALIN;METHYLIN) 5 mg tablet Take 20 mg by mouth 3 times daily. (Patient not taking: Reported on 05/22/2022) ??? metoprolol SUCCinate 50 mg capsule,sprinkle,ER 24hr Take 50 mg by mouth daily. ??? vit,oneil 51-jxtf-vupjc ( LOW IRON) 27 mg iron- 1 mg tablet Take by mouth daily.(Patient not taking: Reported on 05/22/2022) ??? sacubitriL-valsartan (ENTRESTO) 24-26 mg tablet Take 1 Tablet by mouth 2 times daily. ??? torsemide (DEMADEX) 20 mg tablet Take 20 mg by mouth daily. Allergies: No Known Allergies Physical Exam Blood pressure 102/64, temperature 36.6 ??C (97.9 ??F), temperature source Temporal, resp. rate 14,height 158.8 cm (62.5), weight (!) 102.4 kg (225 lb 12 oz), SpO2 97 %. Constitutional: appears well-developed. No distress. Neck: Carotid bruit is not present. Cardiovascular: Normal rate, regular rhythm and normal heart sounds. Exam reveals no friction rub. No murmur heard. Pulmonary/Chest: Effort normal and breath sounds normal. No respiratory distress. No wheezes. No rales. Musculoskeletal: No edema. Pulses intact. Labs CBC: Recent Labs 05/22/22 1100 WBC 9.48 RBC 4.95 HGB 14.8 HCT 43.0 MCV 87 MCH 29.9 MCHC 34.4 PLT 300 BMP: Recent Labs 05/22/22 1100 NA 138 K 3.6 CL 100 CO2 29 BUN 13 CREATININE 0.55 Coags: Recent Labs 05/22/22 1100 PROTIME 12.2 INR 1.1 ECG: SR nonspecific T wave changes. TTE (04/08/22): other labs: Assessment and Plan: Plan to proceed with left heart catheterization to evaluate coronary anatomy and hemodynamics Pt underwent Informed Consent No noted contra-indications to LHC or FLO PCI Plan: - Presentation with HFrEF 25-30% - Current Therapeutics: Toprol XL, entresto, torsemide - Anti-platelet Therapy: ASA taken this AM - Access: RRA - Creatinine/CrCl: 0.55 - Platelets: 300 - Allergies: - Prior Contrast Allergy: No - Pre-Hydration: nacl - Pre-Op Med(s): Sedation Type of sedation: RN IV sedation Mallampati score: 4 ASA score: 3 - All patient's questions were answered. -The risks, benefits and alternatives of the procedure were explained to the patient. -The risks of coronary angiography include but are not limited to: bleeding, infection, heart rhythm abnormalities, allergic reactions, kidney injury and potential need for dialysis, stroke and . - Pt is a FLO candidate and understands the importance of taking plavix for at least one year in ACS cases and 6 months in stable CAD. The patient understands that in case of receiving a drug coated stent the failure to comply with dual anti-platelet therapy as prescribed is likely to result in stent clothing, heart attack and . -The risks of moderate sedation include hypotension, respiratory depression, arrhythmias, bronchospasm, and . - Informed consent was obtained and the patient is agreeable to proceed with the procedure. Martha Anglin MD PGY-7, Interventional Toll Collector Pager: [phone]; [phone] secure chat preferred Associated attestation - Sage Vaca MD - 05/22/2022 1330 EDT Attending Attestation I agree with the findings and plan of care documented in the Fellow's/SHAHLA's pre- procedural H&P note. Rayna Regan is a 42 y.o. year old female who presents for cardiac catheterization. She has achief complaint of shortness of breath and dyspnea on exertion since at least March 2022. Echocardiography showed LV dilation, EF 25 to 30%, moderately dilated and moderately hypokinetic RV, left atrial dilation, PASP 25-30+ RAP. Invasive coronary angiography and PCI as indicated. Sage Vaca MD, Cardiology, Pager #[phone], 13:28 05/22/22 documented in this encounter Procedure Notes * Sage Vaca MD - 05/22/2022 1421 EDT Cardiovascular Catheterization Laboratory Preliminary Report -- Catheterization Date of Service/Procedure: 05/22/2022 Attending Physician: Sage Vaca MD Fellow: Magalys Ham MD Pre-Procedure Diagnosis /NCDR Indication: Rayna Regan is a 42 y.o. year old female with cardiomyopathy and LV dysfunction. Chest Pain Symptom Assessment: Asymptomatic NCDR Indication for PCI: Other CMP If NOT STEMI or NSTE-ACS, Syntax Score: Low Heart Failure: Yes: NYHA Class III CHSA Clinical Frailty Scale: 3: Managing Well Prior Stress Testing? No Anesthesia: A moderate level of anesthesia/conscious sedation was used in addition to local anesthesia. Access: Right radial artery Procedure: She was brought to [facility] Cardiac Catheterization Laboratory for the procedure: Diagnostic coronary/graft angiography and Left heart cath. Closure: TR Band Post-Procedure Condition: The condition of the patient was Good. Complications: None. IV Contrast Total: 60 mL X-ray Dose: AK 271 mGy Estimated Blood Loss: Minimal. Unless otherwise noted,there were no specimens removed, cultures obtained, or drains retained. Research Study: Patient is not enrolled in a research study. Diagnostic Cardiac Study Results Left main: Normal. Left anterior descending: Wrap-around. Normal. D1: Moderate size, normal. Ramus intermedius: Moderate size, normal. Left circumflex: Normal. OM1, OM 2: Normal. Right coronary artery: Dominant. Normal. PDA: Normal. Right PL: Normal. Grafts: N/A Left Ventriculography and Hemodynamic Results LVEDP 15-20 Endovascular Study Results None Post-Procedure Diagnostic Conclusion: Medical therapy is indicated. Plan: Considered to discontinue aspirin. GDMT for HFrEF. At the completion of the procedure, the attending physician has explained the findings, therapies, any complications and treatment plan to the patient. With the patients consent, all family members and patient support persons who were present at the conclusion of the procedure have been notified ofthese results and treatment plans as well. Post Interventional Conclusion/Physician Disposition: (check one main category) Inpatient procedure, continue inpatient status (no procedural complication required) Sage Vaca MD PagerNumber: [phone] 05/22/2022 14:22 documented in this encounter Plan of Treatment Upcoming Encounters Date Type Department Care Team (Late st Contact Info) Description 10/22/2023 12:30 EDT Ancillary Procedure [facility] Vascular Surgery [address] [id number] 10/22/2023 13:15 EDT Initial consult [facility] Vascular Surgery [address] [id number] Pedrito Plascencia MD [address] [place] [address], [address] [place] [id number] documented as of this encounter Procedures Procedure Name Priority Date/Time Associated Diagnosis Comments ECG REPORT - SCANNED 05/27/2022 7:18 EDT CARDIAC CATHETERIZATION Routine 05/23/19 14:24 EDT Cardiomyopathy ([facility]-CMS) ECG REPORT - SCANNED 05/22/2022 11:09 EDT PROTIME STAT 05/22/2022 11:00 EDT COMPLETE BLOOD COUNT STAT 05/22/2022 11:00 EDT BUN STAT 05/22/2022 11:00 EDT NT PRO BNP Add-On 05/22/2022 11:00 EDT CREATININE STAT 05/22/2022 11:00 EDT ELECTROLYTES STAT 05/22/2022 11:00 EDT EKG 12-LEAD Routine 05/22/2022 10:39 EDT documented in this encounter Results * ECG REPORT - SCANNED (05/27/2022 7:18 EDT) 05/27/2022 7:18 EDT Scan 2 Hand Laminator PROCEDURE/MINOR TREMAYNE GICAL ORDERABLES * LEFT HEART CATH (05/22/2022 14:24 EDT) Anatomical Region Laterality Modality Bindery Machine Setter 05/22/2022 13:5 9 EDT Narrative 05/25/2022 17:32 EDT Cardiology [address] [place] [id number] Catheterization Laboratory Study Patient: Rayna Regan M ?Study Date: ?05/22/2022 ?Accession #: ? [id number] : ? 1980 Referring: Sage Vaca MD Diagnostic Attending: ??Sage Vaca Interventional Attending: ?? Sage Vaca Diagnostic Fellow: Magalys Ham MD ATTESTATION: I, Dr. Magalys Ham was the initial author of this report. Dr. Sage Vaca was present and supervising for the entire procedure. I, Dr. Sage Vaca have reviewed and agreed with the findings of this report. PROCEDURE PLAN: A diagnostic study was performed without intervention. RESEARCH STUDY: Patient is not enrolled in any research studies. IMPRESSIONS: Normal study. SUMMARY: 1. HPI and indications: Dyspnea. 2. Impressions: Normal study. A diagnostic study was performed without ?? intervention. 3. Recommendations: [facility] recommendation: Medical therapy and/or ?? counseling. RECOMMENDATIONS: [facility] recommendation: Medical therapy and/or counseling. HISTORY: Dyspnea. ??PMH: ?? Chronic lung disease. ??Functional status: ?? Prior history of congestive heart failure. LABS, PRIOR TESTS, PROCEDURES AND SURGERY: Serum potassium (K) of 3.6 mEq/l. ??Serum creatinine (current admission) of 0.55 mg/dl. ??Platelet count of 300 th/ul. ??Hematocrit of 43 %. Hemoglobin (pre-procedure) of 14.8 g/dl. STUDY DATA: Study status: ??Cardiac cath: elective. ??Patient status: ??Outpatient. Location: ??Catheterization laboratory. Sex: female. Patient is 42yr old. Height: 157.5cm. Weight: 102.4kg. BSA: 2.17m^2. Procedures performed: ?Right radial artery access. ?Left coronary angiography. ?Right coronary angiography. ANESTHESIA: Conscious sedation for pain control by cardiology staff. PROCEDURE: 1. Initial setup. The patient was brought to the laboratory in the ?? fasting state. A baseline ECG was recorded. Surface ECG leads, ?? automatic cuff blood pressure measurements, and pulse oximetric ?? signals were monitored. 2. Skin preparation. The planned puncture sites were prepped with ?? chlorhexidine and draped in the usual sterile manner. 3. Local anesthesia. Using 2% Lidocaine, local anesthetic was ?? administered to the access site(s). 4. Right radial artery access. A 6FR/.021 [place] Sheath Slender sheath ?? was advanced into the vessel. 5. Selective left coronary angiography. A 5 FR Chilo catheter was ?? advanced into the left coronary vessel ostium under fluoroscopic ?? guidance. Contrast was injected. Images were obtained in multiple ?? projections. 6. Selective right coronary angiography. A 5 FR Chilo catheter was ?? advanced into the right coronary vessel ostium under fluoroscopic ?? guidance. Contrast was injected. Images were obtained in multiple ?? projections. 7. Right radial artery hemostasis. Mechanical compression was applied. STUDY COMPLETION: The estimated blood loss was 10ml. All catheters inserted during the procedure were removed. The patient tolerated the procedure well and was discharged from the lab. There were no complications. ??Contrast: Isovue 60ml (total dose). ??Isovue 140ml (wasted). ??Fluoroscopy time: 5.1min. ??Fluoroscopy dose: ??27.1cGy. CORONARY ARTERIES: The coronary circulation is right dominant. Left main: ??Normal. LAD: ??Normal. 1st diagonal: ??Normal. Ramus intermedius: ??Normal. Left circumflex: ??Normal. 1st obtuse marginal: ??Normal. 2nd obtuse marginal: ??Normal. Right coronary: ??Normal. Right posterior descending: ??Normal. 1st right posterolateral: ??Normal. HEMODYNAMICS: End diastolic pressure in the left ventricle is at the upper limits of normal (15-20). + + + Stage description ? Condition1:Condition 1 - + + + LV pressure s/ed ? 104/19 ? + + + Arterial pressure s/d (m) 99/65 (81) ? + + + * Electronically signed by Sage Vaca MD 2022-05-25 17:31 Sage Vaca MD CARDIAC CATH ORD ERABLES * ECG REPORT - SCANNED (05/22/2022 11:09 EDT) 05/22/2022 11:0 9 EDT Scan 2 Hand Laminator PROCEDURE/MINOR TREMAYNE GICAL ORDERABLES * (ABNORMAL) NT PRO BNP (05/22/2022 11:00 EDT) NT-pro BNP 133(H) <95 pg/mL 05/22/2022 14:00 EDT [facility] Comment: In the acute setting NT-proBNP values <300 pg/mL have a 98% NPV for excluding acute heart failure. In outpatient populations, NT-proBNP values <125 have a 99% NPV for excluding heart failure. Blood VENOUS BLOOD / Unknown Venipuncture / Unknown 05/22/2022 11:00 EDT 05/22/2022 11:07 EDT Magalys Ham MD CHEMISTRY & BLOOD GA S ORDERABLES [facility] [address] [place] [address] * PROTIME (05/22/2022 11:00 EDT) [facility] I.N.R. 1.1 0.9 - 1.1 Ratio 05/22/2022 11:24 EDT [facility] Pro Time 12.2 9.7 - 12.8 secs 05/22/2022 11:24 T [facility] Blood VENOUS BLOOD / Unknown Venipuncture / Unknown 05/22/2022 11:00 EDT 05/22/2022 11:07 EDT Narrative [facility] - 05/22/2022 11:24 EDT Moderate Intensity Coumadin INR = 2.0-3.0 Adjustments in anticoagulant therapy dose should be based on the INR and NOT on the Protime. Magalys Ham MD HEMATOLOGY & PF4 ORD ERABLES [facility] [address] [place] [address] * (ABNORMAL) COMPLETE BLOOD COUNT (05/22/2022 11:00 EDT) [facility] WBC 9.48 4.00 - 12.40 K/cmm 05/22/2022 11:11 [facility] RBC 4.95 3.86 - 5.04 M/cmm 05/22/2022 11:11 [facility] Hemoglobin 14.8 11.6 - 15.2 gm/dL 05/22/2022 11:11 [facility] HCT 43.0 34.9 - 44.4 % 05/22/2022 11:11 [facility] MCV 87 81 - 98 fl 05/22/2022 11:11 [facility] MCH 29.9 26.7 - 33.3 pg 05/22/2022 11:11 [facility] MCHC 34.4 32.1 - 35.9 gm/dL 05/22/2022 11:11 [facility] RDW-CV 12.3 <14.7 % 05/22/2022 11:11 EDT [facility] RDW-SD 38.6 <50.4 fl 05/22/2022 11:11 EDT [facility] PLT 300 141 - 377 K/cmm 05/22/2022 11:11 EDT [facility] MPV 9.3(L) 9.5 - 12.7 fl 05/22/2022 11:11 EDT [facility] Blood VENOUS BLOOD / Unknown Venipuncture / Unknown 05/22/2022 11:00 EDT 05/22/2022 11:07 EDT Magalys Ham MD HEMATOLOGY & PF4 ORD ERABLES Performing Organization Address [facility] Co de Phone Number [facility] [address] [place] [address] * ELECTROLYTES (05/22/2022 11:00 EDT) Sodium 138 136 - 145 mmol/L 05/22/2022 11:22 EDT [facility] Potassium 3.6 3.5 - 5.0 mmol/L 05/22/2022 11:22 T [facility] Chloride 100 96 - 110 mmol/L 05/22/2022 11:22 T [facility] CO2 Total 29 22 - 32 mmol/L 05/22/2022 11:22 EDT [facility] Anion Gap 9 5 - 14 05/22/2022 11:22 EDT [facility] Blood VENOUS BLOOD / Unknown Venipuncture / Unknown 05/22/2022 11:00 EDT 05/22/2022 11:07 EDT Magalys Ham MD CHEMISTRY & BLOOD GA S ORDERABLES Performing Organization Address City/[facility] Co de Phone Number [facility] [address] [place] [address] * CREATININE (05/22/2022 11:00 EDT) Creatinine 0.55 0.52 - 1.04 mg/dL 05/22/2022 11:22 EDT [facility] eGFR 117 >60 mL/min/1.73 m2 05/22/2022 11:22 EDT [facility] Blood VENOUS BLOOD / Unknown Venipuncture / Unknown 05/22/2022 11:00 EDT 05/22/2022 11:07 EDT Magalys Ham MD CHEMISTRY & BLOOD GA S ORDERABLES Performing Organization Address [facility] de Phone Number [facility] [address] [place] [address] * BUN (05/22/2022 11:00 EDT) BUN 13 10 - 26 mg/dL 05/22/2022 11:22 EDT [facility] Blood VENOUS BLOOD / Unknown Venipuncture / Unknown 05/22/2022 11:00 EDT 05/22/2022 11:07 EDT Magalys Ham MD CHEMISTRY & BLOOD GA S ORDERABLES Performing Organization Address [facility] de Phone Number [facility] [address] [place] [address] * EKG 12-LEAD (05/22/2022 10:39 EDT) 05/22/2022 10:3 9 EDT Narrative [facility] E[facility] - 05/22/2022 11:02 EDT ? [facility] ? Test Date: ?2022-05-22 Pat Name: ? RAYNA REGAN ? 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 Room: ? CL Gender: ? Female ? Vp Director Of Creative Strategy: ?? [id number] : ?1980 ? Requested By: KASSIDY STOLL Order Number: [id number] ? Reading MD: ?? HALIE HUERTA MD ? Measurements Intervals ?[place] ? Rate: ? 62 ? P: ?23 VA: ? 156 ?QRS: ?53 QRSD: ? 105 ?T: ?32 QT: ? 415 ? QTc: ?423 ? Interpretive Statements SINUS RHYTHM WITH SINUS ARRHYTHMIA NONSPECIFIC T-WAVE ABNORMALITY I reviewed the tracing and have either agreed or edited the findings in this report. Electronically Signed On 05-22-2022 11:02:50 EDT by HALIE HUERTA MD. Procedure Note Halie Huerta MD - 05/22/2022 [facility] Test Date: 2022-05-22 Pat Name: RAYNA REGAN Department: Bindery Machine Setter Room: Gender: Female Vp Director Of Creative Strategy: [id number] : 1980 Requested By: KASSIDY STOLL Order Number: [id number] Reading MD: HALIE HUERTA MD Measurements Intervals [place] Rate: 62 P: 23 VA: 156 QRS: 53 QRSD: 105 T: 32 QT: 415 QTc: 423 Interpretive Statements SINUS RHYTHM WITH SINUS ARRHYTHMIA NONSPECIFIC T-WAVE ABNORMALITY I reviewed the tracing and have either agreed or edited the findings inthis report. Electronically Signed On 05-22-2022 11:02:50 EDT by HALIE RG. Magalys Ham MD CARDIAC ECG ORDERABL ES [facility] EKG documented in this encounter Visit Diagnoses Diagnosis Cardiomyopathy (HCC-CMS) Other primary cardiomyopathies Cardiomyopathy (HCC-CMS) Other primary cardiomyopathies documented in this encounter Administered Medications Inactive Administered Medications - up to 3 most recent administrations Medication Order MAR Action Action Date Dose Rate Site acetaminophen (TYLENOL) tablet 650 mg 650 mg, oral, EVERY 4 HOURS PRN, Starting on Wed05/22/22 at 1426, Until Wed05/22/22 at 1940, Pain, Routine, Release fentaNYL citrate (PF) 50 mcg/mL injection 1 dose, Starting on Wed05/22/22 at 1316, Until Wed05/22/22 at 1940 fentaNYL citrate (PF) injection PRN, Starting on Wed05/22/22 at 1343, Until Wed05/22/22 at 1424, Routine, Intraprocedure Given 05/22/2022 13:51 EDT 25 mcg Given 05/22/2022 13:43 EDT 50 mcg heparin 1,000 unit/mL injection 1 dose, Starting on Wed05/22/22 at 1315, Until Wed05/22/22 at 1940 iopamidoL (ISOVUE-370) injection PRN, Starting on Wed05/22/22 at 1420, Until Wed05/22/22 at 1424, Routine, Intraprocedure Given 05/22/2022 14:20 EDT 60 mL lidocaine (PF) 10 mg/mL (1 %) injection 2 mg 2 mg, intradermal, PRN, 4 doses, Starting on Wed05/22/22 at 1014, Until Wed05/22/22 at 1940, peripheral intravenous catheter placement, Routine, Preprocedure lidocaine (PF) 20 mg/mL (2 %) injection 1 dose, Starting on Wed05/22/22 at 1315, Until Wed05/22/22 at 1940 midazolam (PF) (VERSED) 1 mg/mL injection 1 dose, Starting on Wed05/22/22 at 1315, Until Wed05/22/22 at 1940 midazolam (PF) (VERSED) 1 mg/mL injection 1 dose, Starting on Wed05/22/22 at 1349, Until Wed05/22/22 at 1940 midazolam (PF) (VERSED) injection PRN, Starting on Wed05/22/22 at 1343, Until Wed05/22/22 at 1424, Routine, Intraprocedure Given 05/22/2022 13:51 EDT 1 mg Given 05/22/2022 13:47 EDT 1 mg Given 05/22/2022 13:43 EDT 1 mg sodium chloride 0.9 % (NS) infusion 30 mL/hr, intravenous, CONTINUOUS, Starting on Wed05/22/22 at 1030, Until Wed05/22/22 at 1940, Routine, Preprocedure New Bag 05/22/2022 11:18 EDT 30 mL/hr 30 mL/hr verapamil (ISOPTIN) 2.5 mg/mL injection 1 dose, Starting on Wed05/22/22 at 1315, Until Wed05/22/22 at 1940 documented in this encounter Historical Medications * This list may reflect changes made after this encounter. Medication Sig Dispensed Refills Start Date End Date aspirin chewable 81 mg tablet Take 81 mg by mouth daily. iron-folic ttvb-O-B84-biotin 75 mg iron- 1 mg-175 mg capsule,ext release multiphase Take by mouth daily. vit,oneil 78-tzbn-qrdei ( LOW IRON) 27 mg iron- 1 mg tablet Take by mouth daily. fluticasone propionate (FLONASE) 50 mcg/actuation nasal spray Instill 100 mcg into both nostrils daily. loratadine 10 mg capsule Take 10 mg by mouth daily. gabapentin (NEURONTIN) 300 mg capsule Take 300 mg by mouth 2 times daily. sacubitriL-valsartan (ENTRESTO) 24-26 mg tablet Take 1 Tablet by mouth 2 times daily. metoprolol SUCCinate 50 mg capsule,sprinkle,ER 24hr Take 50 mg by mouth daily. torsemide (DEMADEX) 20 mg tablet Take 20 mg by mouth daily. added in this encounter Active and Recently Administered Medications Times are shown in EDT. Continuous Medication Order 05/20/2022 05/21/2022 05/22/2022 sodium chloride 0.9 % (NS) infusion 30 mL/hr, intravenous, CONTINUOUS, Starting on Wed05/22/22 at 1030, Until Wed05/22/22 at 1940, Routine, Preprocedure 1118 (New Bag - Prov ider: Pedro De La Garza RN) PRN Medication Order 05/20/2022 05/21/2022 05/22/2022 acetaminophen (TYLENOL) tablet 650 mg 650 mg, oral, EVERY 4 HOURS PRN, Starting on Wed05/22/22 at 1426, Until Wed05/22/22 at 1940, Pain, Routine, Release fentaNYL citrate (PF) injection (CANCELED) PRN, Starting on Wed05/22/22 at 1343, Until Wed05/22/22 at 1424, Routine, Intraprocedure 1343 (Given - Provid er: Monroe Matthews RN)1351 (Given - Provider: Mary Ellen Nielsen RN) iopamidoL (ISOVUE-370) injection (CANCELED) PRN, Starting on Wed05/22/22 at 1420, Until Wed05/22/22 at 1424, Routine, Intraprocedure 1420 (Given - Provid er: Sage Vaca MD) lidocaine (PF) 10 mg/mL (1 %) injection 2 mg 2 mg, intradermal, PRN, 4 doses, Starting on Wed05/22/22 at 1014, Until Wed05/22/22 at 1940, peripheral intravenous catheter placement, Routine, Preprocedure midazolam (PF) (VERSED) injection (CANCELED) PRN, Starting on Wed05/22/22 at 1343, Until Wed05/22/22 at 1424, Routine, Intraprocedure 1343 (Given - Provid er: Monroe Matthews RN)1347 (Given - Provider: Monroe Matthews RN)1351 (Given - Provider: Mary Ellen Nielsen RN) No Frequency Medication Order 05/20/2022 05/21/2022 05/22/2022 fentaNYL citrate (PF) 50 mcg/mL injection 1 dose, Starting on Wed05/22/22 at 1316, Until Wed05/22/22 at 1940 heparin 1,000 unit/mL injection 1 dose, Starting on Wed05/22/22 at 1315, Until Wed05/22/22 at 1940 lidocaine (PF) 20 mg/mL (2 %) injection 1 dose, Starting on Wed05/22/22 at 1315, Until Wed05/22/22 at 1940 midazolam (PF) (VERSED) 1 mg/mL injection 1 dose, Starting on Wed05/22/22 at 1315, Until Wed05/22/22 at 1940 midazolam (PF) (VERSED) 1 mg/mL injection 1 dose, Starting on Wed05/22/22 at 1349, Until Wed05/22/22 at 1940 verapamil (ISOPTIN) 2.5 mg/mL injection 1 dose, Starting on Wed05/22/22 at 1315, Until Wed05/22/22 at 1940 documented in this encounter Orders Medications Ordered That Carlos ht Not Have Been Administered Count Last Ordered Date First Ordered Date acetaminophen (TYLENOL) tablet 650 mg 1 fentaNYL citrate (PF) 50 mcg/mL injection 1 05/22/2022 heparin 1,000 unit/mL injection 1 lidocaine (PF) 10 mg/mL (1 % ) injection 2 mg 1 05/22/2022 lidocaine (PF) 20 mg/mL (2 %) injection 1 0 05/22/2022 midazolam (PF) (VERSED) 1 mg/mL injection 2 05/22/2022 verapamil (ISOPTIN) 2.5 mg/mL injection 1 0 05/22/2022 Nursing Count Last Ordered Date First Orde red Date PATIENT AT LOW RISK FOR VTE: RISK OF PHARMACOLOGIC PROPHYLAXIS OUTWEIG 1 05/22/2022 Discharge Count Last Ordered Date First Orde red Date DISCHARGE PATIENT 1 05/22/2022 documented in this encounter Care Teams Storage Battery Tester Relationship Specialty Start Date End Date Sharron Cintron MD [address] [phone] PCP - General 06/06/18 documented as of this encounter
--- OUTSIDE RECORDS SUMMARY | 2023-08-20 22:17 | XMS_ITS | Encounter Summary ---
Author Organization [facility] Address [address] [place] [address] Care Team Providers Care Puller Over Name Role Phone Unknown, Provider Primary Care Provider [phone] Encounter Details Date Type Department Care Team (Late st Contact Info) Description 07/15/2017 Results Only [facility] [phone] Natalia Wilson, FITO [address] [place] [phone] Social History Tobacco Use Types Packs/Day Years Used Date Smoking Tobacco: Every Day Alcohol Use Standard Drinks/Week Comments Yes 0 (1 standard drink = 0.6 oz pur e alcohol) 1 drink daily Sex and Gender Information Value Date Recorded Sex Assigned at Not on file Gender Identity Female 05/22/2022 10:01 EDT Sexual Orientation Not on file documented as of this encounter Plan of Treatment Upcoming Encounters Date Type Department Care Team (Late st Contact Info) Description 10/22/2023 12:30 EDT Ancillary Procedure [facility] Vascular Surgery - [address] [id number] 10/22/2023 13:15 EDT Initial consult [facility] [address] [id number] Pedrito Plascencia MD [address] [facility], [address] [place] [phone] documented as of this encounter Procedures Procedure Name Priority Date/Time Associated Diagnosis Comments GLUCOSE, SERUM Routine 07/15/2017 10:55 EDT LIPID PROFILE (INCLUDES CHOLESTEROL, TRIGLYCERIDES, HDL, LDL) Routine 07/15/2017 10:55 EDT documented in this encounter Results * GLUCOSE, SERUM (07/15/2017 10:55 EDT) Glucose, Serum 91 70 - 100 mg/dl 07/15/2017 21:47 T [facility] BLOOD SPECIMEN / Unknown 07/15/2017 10:55 EDT 07/15/2017 21:16 EDT Natalia Wilson NP CHEMISTRY & BLOOD GA S ORDERABLES Performing Organization Address City/State/[facility] Co de Phone Number [facility] [address] [place] [address] * LIPID PROFILE (INCLUDES CHOLESTEROL, TRIGLYCERIDES, HDL, LDL) (07/15/2017 10:55 EDT) Cholesterol 152 mg/dl 07/15/2017 21:47 T [facility] Comment: Desirable:<200 Borderline High:200-239 High:>fa=150 Triglycerides 161 mg/dl 07/15/2017 21:47 [facility] Comment: Normal:<150 Borderline High:150-199 High:200-499 Very High:>ct=560 HDL 43 mg/dl 07/15/2017 21:47 [facility] Comment: Low:<40 Normal:40-60 Desirable: >60 LDL, Calculated 77 mg/dl 8 21:47 [facility] Comment: Optimal:<100 Near Optimal:100-129 Borderline High:130-159 High:160-189 Very High:>pw=570 Chol/HDL Ratio 3.5 07/15/2017 21:47 [facility] Fasting? YES 07/15/2017 21:17 [facility] Non HDL Cholesterol 109 mg/dl 07/15/2017 21:47 [facility] Comment: Desirable:<130 Borderline:130-159 High: 160-189 Very High: >hk=663 BLOOD SPECIMEN / Unknown 07/15/2017 10:55 EDT 07/15/2017 21:16 EDT Natalia Wilson NP CHEMISTRY & BLOOD GA S ORDERABLES Performing Organization Address City/State/[facility] Co de Phone Number [facility] [address] [place] [address] documented in this encounter Visit Diagnoses Not on filedocumented in this encounter Care Teams Puller Over Relationship Specialty Start Date End Date Unknown, Provider, PCP - General 11/09/12 02/09/18 documented as of this encounter
--- OUTSIDE RECORDS SUMMARY | 2023-08-20 22:17 | XMS_ITS | Encounter Summary ---
Author Organization [facility] Address [address] [place] [address] Care Team Providers Care Press Hand Supervisor Name Role Phone Unknown, Provider Primary Care Provider Encounter Details Date Type Department Care Team (Latest Contact Info) Description 12/17/2014 9:45 EST - 12/17/2014 9:46 EST Hospital Encounter [address] [address] Natalia Wilson, FITO [address] [place] [address] [place] [phone] Discharge Disposition: Home or Self Care Social History Tobacco Use Types Packs/Day Years Used Date Smoking Tobacco: Never Assessed Sex and Gender Information Value Date Recorded Sex Assigned at Not on file Gender Identity Female 05/22/2022 10:01 EDT Sexual Orientation Not on file documented as of this encounter Discharge Diagnoses Diagnosis Z00.00 Encounter for general adult medical examination without abnormal findings-Z00.00[ICD-10-CM] 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] documented in this encounter Discharge Disposition Disposition Code Departure Means Destination Home or Self Care documented in this encounter Plan of Treatment Upcoming Encounters Date Type Department Care Team (Late st Contact Info) Description 10/22/2023 12:30 EDT Ancillary Procedure [facility] [address] [address] 10/22/2023 13:15 EDT Initial consult [facility] Surgery - [address] [address] Pedrito Plascencia MD [address] [facility], [address] [place] [address] documented as of this encounter Visit Diagnoses Not on filedocumented in this encounter Care Teams Press Hand Supervisor Relationship Specialty Start Date End Date Unknown, Provider, PCP - General 11/09/12 02/09/18 documented as of this encounter
--- OUTSIDE RECORDS SUMMARY | 2023-08-20 22:17 | XMS_ITS | Encounter Summary ---
Author Organization [facility] Address [address] [place] [address] Care Team Providers Care Cashier Name Role Phone Unavailable Primary Care Provider Unavailabl e Encounter Details Date Type Department Care Team (Late st Contact Info) Description 11/02/2005 Results Only [facility] - [facility] [address] [place] [phone] Solis Maldonado MD [address] [place] [address] Social History Tobacco Use Types Packs/Day Years Used Date Smoking Tobacco: Never Assessed Sex and Gender Information Value Date Recorded Sex Assigned at Not on file Gender Identity Female 05/22/2022 10:01 EDT Sexual Orientation Not on file documented as of this encounter Plan of Treatment Upcoming Encounters Date Type Department Care Team (Late st Contact Info) Description 10/22/2023 12:30 EDT Ancillary Procedure [facility] Surgery [address] [id number] 10/22/2023 13:15 EDT Initial consult [facility] [address] [phone] Pedrito Plascencia MD 111 [facility], [address] [place] [address] documented as of this encounter Procedures Procedure Name Priority Date/Time Associated Diagnosis Comments CYTOPATHOLOGY Routine 11/02/2005 0:00 EDT documented in this encounter Results * CYTOPATHOLOGY (11/02/2005 0:00 EDT) Pathology Report: CYTOPATHOLOGY REPORT Reports generated via electronic interface contain original data; however they are lacking the format of the original report. Caution should be taken when reading/interpreti ng unformatted reports. Name: ? RAYNA WOOD ? Accession #: ? [id number] : ? 1980 (Age: 25) ??F ?Collect Date: ? 11/02/2005 Location: ? [facility] ? Receive Date: ? 11/03/2005 Provider: ?SOLIS MALDONADO MD Copy to: ? Specimen/Source: ?ThinPrep Pap Test, Cervix/Endocervix, processed on [employer] ThinPrep Imaging System, with manual evaluation Last Menstrual Period: ? 10/10/05 Previous Gynecologic Pathology: ? HPV: 02/13 Treatment History: ? LEEP: 05/14 Colposcopy: 03/16 ? SPECIMEN ADEQUACY ? Satisfactory for Evaluation - transformation zone component present GENERAL CATEGORIZATION ? Negative for Intraepithelial Lesion or Malignancy ? Document reviewed and electronically signed by: ? Luanne Hamilton, ALEE(ASCP)(IAC) ? Report Date: ??11/09/2005 16:40 End of Report [facility] 11/02/2005 11/03/2005 Solis Maldonado MD PATHOLOGY ORDERA SUZANNE Performing Organization Address City/State/[facility] Co de Phone Number [facility] [address] [place] [phone] documented in this encounter Visit Diagnoses Not on filedocumented in this encounter
--- OUTSIDE RECORDS SUMMARY | 2023-08-20 22:17 | XMS_ITS | Encounter Summary ---
Author Organization [facility] Address [address] [place] [address] Care Team Providers Care Metal Spraying Machine Operator Name Role Phone Unavailable Primary Care Provider Unavailabl e Encounter Details Date Type Department Care Team (Late st Contact Info) Description 05/16/2007 Results Only [facility] - [place] [facility] [address] [place] [address] Solis Maldonado MD [address] [place] [address] Social History Tobacco Use Types Packs/Day Years Used Date Smoking Tobacco: Never Assessed Sex and Gender Information Value Date Recorded Sex Assigned at Not on file Gender Identity Female 05/22/2022 10:01 EDT Sexual Orientation Not on file documented as of this encounter Plan of Treatment Upcoming Encounters Date Type Department Care Team (Late st Contact Info) Description 10/22/2023 12:30 EDT Ancillary Procedure [facility] [address] [phone] 10/22/2023 13:15 EDT Initial consult [facility] [address] [phone] Pedrito Plascencia MD 111 [facility], [address] [place] [address] documented as of this encounter Procedures Procedure Name Priority Date/Time Associated Diagnosis Comments CYTOPATHOLOGY Routine 05/16/2007 0:00 EDT documented in this encounter Results * CYTOPATHOLOGY (05/16/2007 0:00 EDT) Pathology Report: CYTOPATHOLOGY REPORT Reports generated via electronic interface contain original data; however they are lacking the format of the original report. Caution should be taken when reading/interpreti ng unformatted reports. Name: ? RAYNA WOOD ? Accession #: ? [id number] : ? 1980 (Age: 27) ??F ?Collect Date: ? 05/16/2007 Location: ? [facility] ? Receive Date: ? 05/18/2007 Provider: ?SOLIS MALDONADO MD Copy to: ? Specimen/Source: ?ThinPrep Pap Test, Source Not Provided, processed on [employer] ThinPrep Imaging System, with manual evaluation Last Menstrual Period: ? 05/06/07 Other: ? HPVA - HPV testing requested if ASC-US on the current ThinPrep Pap test. ? SPECIMEN ADEQUACY ? Satisfactory for Evaluation - transformation zone component present GENERAL CATEGORIZATION ? Negative for Intraepithelial Lesion or Malignancy ? Document reviewed and electronically signed by: ? ALEE Vogel(ASCP)(IAC) ? Report Date: ??05/23/2007 16:40 End of Report [facility] 05/16/2007 05/18/2007 Solis Maldonado MD PATHOLOGY [facility] [address] [place] [address] documented in this encounter Visit Diagnoses Not on filedocumented in this encounter
--- OUTSIDE RECORDS SUMMARY | 2023-08-20 22:17 | XMS_ITS | Encounter Summary ---
Author Organization [facility] Address [address] [place] [address] Care Team Providers Care Forming Department Supervisor Name Role Phone Unavailable Primary Care Provider Unavailabl e Encounter Details Date Type Department Care Team (Late st Contact Info) Description 09/02/2006 Results Only [facility] [place] conversion [address] [place] [phone] Unknown, ProviderMD Social History Tobacco Use Types Packs/Day Years Used Date Smoking Tobacco: Never Assessed Sex and Gender Information Value Date Recorded Sex Assigned at Not on file Gender Identity Female 05/22/2022 10:01 EDT Sexual Orientation Not on file documented as of this encounter Plan of Treatment Upcoming Encounters Date Type Department Care Team (Late st Contact Info) Description 10/22/2023 12:30 EDT Ancillary Procedure [facility] Surgery [address] [phone] 10/22/2023 13:15 EDT Initial consult [facility] Surgery - [address] [address] Pedrito Plascencia MD 111 [facility], [address] [place] [phone] documented as of this encounter Procedures Procedure Name Priority Date/Time Associated Diagnosis Comments T3, TOTAL Routine 09/02/2006 14:43 EDT documented in this encounter Results * (ABNORMAL) T3, TOTAL (09/02/2006 14:43 EDT) T3, Total 184(H) 60 - 181 ng/dL [facility] 09/02/2006 14:4 3 EDT 09/02/2006 20:55 EDT Provider Unknown MD CHEMISTRY & BLOOD GA S ORDERABLES Performing Organization Address City/State/[facility] Co de Phone Number [facility] [address] [place] [address] documented in this encounter Visit Diagnoses Not on filedocumented in this encounter
--- OUTSIDE RECORDS SUMMARY | 2023-08-20 22:17 | XMS_ITS | Encounter Summary ---
Author Organization [facility] [place] Address [address] [place] [address] Care Team Providers Care Wire Coating Operator Metal Name Role Phone Sharron Cintron MD Primary Care Provider [phone] Reason for Visit * Reason Onset Date Comments New Patient Visit 10/06/2019 Zoom Encounter Details Date Type Department Care Team ([facility] st Contact Info) Description 10/06/2019 Telephone [facility] Neurology - [address] [id number] Unknown, Provider, New Patient Visit (Zoom) Social History Tobacco Use Types Packs/Day Years Used Date Smoking Tobacco: Every Day Cigarettes Smokeless Tobacco: Never Alcohol Use Standard Drinks/Week Comments Yes 0 (1 standard drink = 0.6 oz pure alcohol) daily, past 2 weeks heavy consumption 6-12 nips a day Interpersonal Safety Answer Date Record ed Physically Hurt Never 09/10/2019 Verbally Threaten Not on file 09/10/2019 Sex and Gender Information Value Date Recorded Sex Assigned at Not on file Gender Identity Female 05/22/2022 10:01 EDT Sexual Orientation Not on file documented as of this encounter Miscellaneous Notes * Telephone Encounter - Yesica Falcon - 11/13/2019 0955 EDT Left 2nd message to schedule NPV (60 min) via Zoom Televideo with Amado Huang ([facility]) or Jack (Dr. Nj has openings this week) * Telephone Encounter - Yesica Falcon - 10/06/2019 1023 EDT LMOM to schedule NPV (60 min) via Zoom Televideo with Clem Ibarra or Jack documented in this encounter Plan of Treatment Upcoming Encounters Date Type Department Care Team (Late st Contact Info) Description 10/22/2023 12:30 EDT Ancillary Procedure [facility] Vascular [address] [id number] 10/22/2023 13:15 EDT Initial consult [facility] V[facility] [address] [address] Pedrito Plascencia MD [address] [facility], [address] [place] [phone] documented as of this encounter Visit Diagnoses Not on filedocumented in this encounter Care Teams Wire Coating Operator Metal Relationship Specialty Start Date End Date Sharron Cintron MD [address] [id number] PCP - General 06/06/18 documented as of this encounter
--- OUTSIDE RECORDS SUMMARY | 2023-08-20 22:17 | XMS_ITS | Encounter Summary ---
Author Organization [facility] Address [address] [place] [address] Care Team Providers Care Central Sterile Technician Name Role Phone Unknown, Provider Primary Care Provider [phone] Reason for Visit * Reason Comments Abdominal Pain ambulatory into [facility] ge coming from [facility] for R/U ovarian torsion. had blood work, UA and CT needs US. NAD @ triage. Encounter Details Date Type Department Care Team (Late st Contact Info) Description 03/28/2017 3:49 EST - 03/28/2017 7:37 EST Emergency [facility] Emergency Department - [address] [id number] Annabelle Vizcaino PA-C [address] [place] [phone] Sander Curran PA-C [address] [place] [phone] Syed Infante MD MPH [address] [place] [phone] Left lower quadrant pain (Primary Dx) Discharge Disposition: Home or Self Care Social [...] Sign Reading Time Taken Comments Blood Pressure 139/81 03/28/2017354 EST Pulse 91 03/28/2017 035 EST Temperature 36.4 ??C (97.5 ??F) 03/28/2017 035 EST Respiratory Rate 16 03/28/2017 035 EST Oxygen Saturation 100% 03/28/2017 035 EST Inhaled Oxygen Concentration - - Weight 86.2 kg (190 lb) 03/28/2017 035 EST Height 157.5 cm (5' 2) 03/28/2017 035 EST Body Mass Index 34.75 03/28/2017 035 EST documented in this encounter Discharge Diagnoses Diagnosis R10.32 Left lower quadrant pain-R10.32[ICD-10-CM] F17.210 Nicotine dependence, cigarettes, uncomplicated-F17.210[ICD-10-CM] documented in this encounter Discharge Instructions * Instructions* Sander Curran PA - 03/28/2017 7:15 EST At your emergency department visit today, you were evaluated for abdominal pain. He had an extensive workup performed at [facility], as well as here at [facility]. Fortunately your bloodwork appeared normal. Your CAT scan showed an enlarged left ovary. An ultrasound showed good blood supply. The [employer] specialists came and evaluated you. At this time there does not appear to be any concerning emergent condition involving her ovaries or your abdomen. Ovarian portion is a concerning condition, which could be occurring with your ovary him a work twists and untwists on itself. At this time, it does not appear to be twisted, or have any compromise blood flow. Continue to monitor your symptoms. Use Tylenol and/or ibuprofen as needed for pain. Slowly increased diet as tolerated. If you develop severe worsening of your abdominal discomfort, fevers, vaginal bleeding, persistent vomiting, or inability to tolerate oral intake, return to the emergency department. * Attachments The following attachments cannot be sent through Care Everywhere. * ABDOMINAL PAIN (UZBEK) documented in this encounter Medications at Time of Discharge Medication Sig Dispensed Refills Start Date End Date methylphenidate HCl (RITALIN;METHYLIN) 5 mg tablet Take 20 mg by mouth 3 times daily. documented as of this encounter Discharge Disposition Disposition Code Departure Means Destination Home or Self Care Walk-out Home documented in this encounter Consult Notes * Jazmin Stark MD - 03/28/2017 0555 EST Department of Gynecology History and Physical CC: abdominal pain Subjective Rayna Hickey is a 37 y.o. who presents to the ED as a transport from [facility] for abdominal pain. She reports left lower abdominal pain for one week that has been intermittent, sharp, andrated at 10/10 at its worst and 0/10 at its best. Nothing makes it better or worse, it just seems to come and go on its own. At 1999 yesterday evening it became worse so she presented to [facility] for evaluation. Work up from [facility] demonstrated 11.4 WBC, Hgb 14.8 and Hct 43, plateelets of 345, glucose of 102, creatinine of 0.71. test was negative. UA showed large amount of blood (likely contaminant as the patient is currently menstruating). She had a renal CT that showed mild prominenceof the left ovary and adnexa with surrounding inflammatory changes. Pelvic US was not available so she was recommended to come to [facility] for concern for ovarian torsion. Currently, she reports her pain is improved and she would like to eat and leave the ED so she can get sleep before work at noon. She denies fevers, chills, chest pain, SOB, N/V/D, dysuria, flank pain, and extremity pain. 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 Condoms for contraception Regular menses Currently sexually active Denies STIs H/o abnormal Paps with LEEP x2 Medications Adderall 20 mg TID Allergies NKDA Social History Current every day smoker, 1/2 PPD Drinks 1 alcoholic beverage most nights Denies recreational drug use Family History Mom skin cancer MGM breast cancer Objective BP 139/81 (BP Cuff Location: Left arm, Patient Position: Sitting) Pulse 91 Temp 36.4 ??C (97.5 ??F) (Temporal) Resp 16 Ht 157.5 cm (62) Wt 86.2 kg (190 lb) SpO2 100% BMI 34.75 kg/m2 Gen: NAD CV: RRR Pulm: CTAB Abd: soft, moderately tender to deep palpation in LLQ, otherwise non-tender to palpation, non-distended, +BS, no rebound or guarding Pelvic: tenderness of left adnexa, no uterine or right adnexal tenderness, menstrual blood on exam Ext: warm, well-perfused, non-tender Labs No labs done Imaging Pelvic US 03/28/17 (Preliminary Read) ?? IMPRESSION: ?? The left ovary is significantly enlarged in comparison with the ?? right. Color Doppler flow is seen, however, this may reflect torsion ?? detorsion, or infectious process such as tubo-ovarian abscess. ? Small right cyst in the region of the right adnexa may reflect small ?? paraovarian cyst, or paratubal cyst. Assessment/Plan Rayna Hickey is a 37 y.o. who presents with abdominal pain and concern for ovarian torsion. No evidence of torsion on imaging and the patient has a non-acute abdominal exam. She desiresdischarge home. Discussed she could be torsing/detorsing and should seek care if her pain worsens significantly. Discussed with Dr. Infante. Jazmin Stark MD PGY-3 [facility] Obstetrics and Gynecology Pager: [phone] documented in this encounter ED Notes * Sander Curran PA - 03/28/2017 0737 EST Care assumed at shift change from Annabelle Hernandez PA-C 0600 After assuming care, I was contacted by [facility], who evaluated the patient. [place] that she did not have a convincing story of torsion, with normal exam. However this condition can be intermittent. They recommended discharge the patient home. Encouraged to follow-up should she have sudden onset of abdominal pain again. Proceeded to reevaluate the patient and discussed findings from [facility]. Patient was highly agitated, stating just let me get the hell out of here. And I do not wanted to take another 20 minutes. Patient was discharged, will follow up with [facility] as directed by their service. Return precautions discussed should her symptoms worsen. ED Alvarado-Greg * Nilam Us RN - 03/28/2017 0736 EST Pt refusing VS to be taken at time of d/c * Annabelle Vizcaino PA - 03/28/2017 0406 EST DOS: 03/28/2017 Chief Complaint Patient presents with ??? Abdominal Pain ambulatory into triage coming from [facility] for R/U ovarian torsion. had blood work, UA and CT needs US. NAD @ triage. HPI HPI Comments: I, Luther Tavarez, am scribing for Annabelle Vizcaino PA while she is personally performing the service. Luther Tavarez 03/28/2017 4:07 Rayna Hickey is a 37 y.o. female with a history of who presents to the ED from [facility] accepted by Dr. Infante of [employer] to rule out ovarian torsion. Patient reports intermittent lower left abdominal pain that has been increasing over the past week. She states that the pain acutely worsened tonight. She had labs, UA, and a CT at [facility] (see notable results in ED course below), butis here for an ultrasound. Patient notes that her pain is worsened positionally, especially with sitting up. She is currently on her menstrual period. Patient states that she has felt more cold recently since yesterday. She also endorses associated back pain. She had a similar episodes several years ago, but not as severe or frequent. She received Toradol and Tylenol at the outside facility [facility] [employer] [facility]. Patient denies fever, chills, nausea, vomiting, chest pain, or shortness of breath. Social history: Current every day cigarette smoker. Endorses 1 alcoholic drink/day. The history is provided by the patient and medical records. Review of Systems Review of Systems Constitutional: Negative for chills and fever. Respiratory: Negative for shortness of breath. Cardiovascular: Negative for chest pain. Gastrointestinal: Positive for abdominal pain. Negative for nausea and vomiting. Genitourinary: Positive for vaginal bleeding (on period, normal compared to priors). Negative for difficulty urinating and vaginal pain. Musculoskeletal: Positive for back pain. Allergic/Immunologic: Negative for immunocompromised state. Neurological: Negative for syncope. Hematological: Does not bruise/bleed easily. The patient's past medical, family and social history was reviewed and updated as needed. No Known Allergies Vital Signs Vitals Reassessment?: Yes Temp: 36.4 ??C (97.5 ??F) Temp src: Temporal Pulse: 91 Resp: 16 SpO2: 100 % BP: 139/81 BP MAP: 90 mm Hg BP Device: BP Machine Patient Position: Sitting BP Cuff Location: Left arm O2 Device: None (Room air) Physical Exam Constitutional: She is oriented to person, place, and time. She appears well- developed and well-nourished. No distress. HENT: Head: Normocephalic and atraumatic. Eyes: Conjunctivae are normal. Neck: Normal range of motion. Cardiovascular: Normal rate and regular rhythm. Exam reveals no gallop and no friction rub. No murmur heard. Pulmonary/Chest: Effort normal and breath sounds normal. No respiratory distress. She has no wheezes. She has no rales. Abdominal: Soft. She exhibits no distension. LLQ pain Musculoskeletal: Normal range of motion. Neurological: She is alert and oriented to person, place, and time. Skin: Skin is warm and dry. Psychiatric: She has a normal mood and affect. Nursing note and vitals reviewed. RESULTS Radiology orders: OUTSIDE IMAGES - CT BODY RAD US PELVIS, TRANSVAGINAL, AND LIMITED DOPPLER Ultrasound obtained, reviewed, and interpreted by the radiologist. Please see radiology report for further details. Relevant Data Procedures ED COURSE A medical screening exam was performed. Physical exam was significant for LLQ pain. Heart and lungs were normal. I reviewed the results from [facility]: Labs significant for a white count of 11.4, hemoglobin of 14.8,HCT of 43, platelets of 345, glucose of 102, and creatinine of 0.71. test was negative. UA showed large amount of blood (pt currently on period). She had a renal CT that showed mild prominence of the left ovary and adnexa with surrounding inflammatory changes. No pelvic exam was done. 04:05 - I called [facility] to initiate scan. 0554 - I paged and consulted the [employer]PLOYMENT [employer] CLAIMS A[employer] resident, who will see the patient in the ED. Transvaginal US showed an enlarged left ovary. No visible ovarian torsion, but color doppler blood flow seen with possible torsion-detorsion or infectious process. 05:59 - Patient was updated on the results and the plan to be seen by [employer] CLAIM[employer] AIDE, which she was comfortable with. Patient was signed out to oncoming Sander WARD, with [employer] CLAIM[employer] evaluation and disposition pending. ASSESSMENT AND PLAN Final diagnoses: Left lower quadrant pain DISPOSITION: Discharged The patient's pain was managed to an adequate level weighing risk vs. benefit of further medications. Upon change of shift, the patient's pain was 0 on a zero to ten scale. Any further pain treatment will be at the discretion of the provider following up with the patient based on their clinical assessment. Condition at transfer of care: Good PCP: Doctor Unknown MDM Number of Diagnoses or Management Options Left lower quadrant pain: Diagnosis management comments: Ovarian cyst, torsion, LLQ pain 4 Amount and/or Complexity of Data Reviewed Tests in the radiology section of CPT??: ordered and reviewed Review and summarize past medical records: yes Discuss the patient with other providers: yes Blaine Ovalles was available for supervision. This documentation is recorded by Luther Tavarez acting as Scribe under the direction and presenceof Annabelle Vizcaino PA. Annabelle Vizcaino PA: I personally performed the services recorded by the scribe in my presence. I confirm the scribe's documentation has been reviewed by me to accurately and completely record my work, treatment, procedures, and medical decision making. 03/29/2017 2:23 No flowsheet data found. * Solis Peralta RN - 03/28/2017 0355 EST Chief Complaint Patient presents with ??? Abdominal Pain ambulatory into triage coming from [facility] for R/U ovarian torsion. had blood work, UA and CT needs US. NAD @ triage. * Blaine Reddy - 03/28/2017 1139 EST TCALL: RAYNA HICKEY 37F REFERRED TO ED BY [facility]. LEFT LOWER ABD PAIN R/O OVARIAN TORSION. (-) UPT. 136/67, 74, 14, 36.5C, AOX3, TYLENOL 1GM. PIV #20 R AC NOTE BY ЕЛЕНА FLORES. (SILKE) * Blaine Reddy - 03/28/2017 0352 EST TCALL: RAYNA HICKEY 37F LEFT OVARIAN TORSION. CT CONCERNING FOR INFLAMMATORY CHANGES AROUND OVARY. NOTE BY DR. ARREGUIN (SILKE) documented in this encounter Plan of Treatment Upcoming Encounters Date Type Department Care Team (Late st Contact Info) Description 10/22/2023 12:30 EDT Ancillary Procedure [facility] Vascular Surgery [address] [id number] 10/22/2023 13:15 EDT Initial consult [facility] Vascular Surgery [address] [address] Pedrito Plascencia MD [address] [place] [address], [address] [place] [phone] Pending Results Name Type Priority Associated Diagnoses Date /Time OUTSIDE IMAGES - CT BODY Imaging 03/28/2017 2:26 EST documented as of this encounter Procedures Procedure Name Priority Date/Time Associated Diagnosis Comments RAD US PELVIS, TRANSVAGINAL, AND LIMITED DOPPLER STAT 03/28/2017 5:05 EST documented in this encounter Results * RAD US PELVIS, TRANSVAGINAL, AND LIMITED DOPPLER (03/28/2017 5:05 EST) Anatomical Region Laterality Modality Other 03/28/2017 5:05 EST 03/28/2017 10:21 EST Narrative 03/28/2017 10:21 EST RAD US PELVIS, TRANSVAGINAL, AND LIMITED DOPPLER ??03/28/2017 5:05 AM SIGNS AND SYMPTOMS/COMMENTS: LLQ pain TECHNIQUE: Grayscale, color, and spectral Doppler ultrasound images of the pelvis were obtained, first transabdominally, and then transvaginally. COMPARISON: CT abdomen pelvis 03/27/2017. FINDINGS: LMP: The patient is currently having her period. UTERUS: The uterus measures 9 x 4.9 x 5.5 cm and is anteverted. RIGHT OVARY: The right ovary measures 2.4 x 1.4 x 2.1 cm for a total volume of 3.6 mL. Doppler ultrasound is within normal limits. Multiple follicles are seen. A well-circumscribed anechoic cyst measuring 1.5 x 0.9 x 0.5 cm is noted just superior to the right ovary. No significant flow is seen within this. May correspond with a cystic lesion is seen proximal to the small bowel on the recent CT. LEFT OVARY: The left ovary measures 4 x 1.7 x 2 cm for a total volume of 6.9 mL. Color Doppler flow is preserved. The follicles appear slightly peripheralized but not significantly. FREE FLUID: None Multiple nabothian cysts are seen. IMPRESSION: The left ovary is significantly enlarged in comparison with the right. Color Doppler blood flow is seen. However, this may reflect torsion-detorsion, or infectious process such as tubo-ovarian abscess. Small right cyst in the region of the right adnexa may reflect small paraovarian cyst, or paratubal cyst. I have personally reviewed the images and the above interpretation and agree with the findings. Procedure Note Kurtis Ventura MD - 03/28/2017 RAD US PELVIS, TRANSVAGINAL, AND LIMITED DOPPLER 03/28/2017 5:05 AM SIGNS AND SYMPTOMS/COMMENTS: LLQ pain TECHNIQUE: Grayscale, color, and spectral Doppler ultrasound images of the pelvis were obtained, first transabdominally, and then transvaginally. COMPARISON: CT abdomen pelvis 03/27/2017. FINDINGS: LMP: The patient is currently having her period. UTERUS: The uterus measures 9 x 4.9 x 5.5 cm and is anteverted. RIGHT OVARY: The right ovary measures 2.4 x 1.4 x 2.1 cm for a total volume of 3.6 mL. Doppler ultrasound is within normal limits. Multiple follicles are seen. A well-circumscribed anechoic cyst measuring 1.5 x 0.9 x 0.5 cm is noted just superior to the right ovary. No significant flow is seen within this. May correspond with a cystic lesion is seen proximal to the small bowel on the recent CT. LEFT OVARY: The left ovary measures 4 x 1.7 x 2 cm for a total volume of 6.9 mL. Color Doppler flow is preserved. The follicles appear slightly peripheralized but not significantly. FREE FLUID: None Multiple nabothian cysts are seen. IMPRESSION: The left ovary is significantly enlarged in comparison with the right. Color Doppler blood flow is seen. However, this may reflect torsion-detorsion, or infectious process such as tubo-ovarian abscess. Small right cyst in the region of the right adnexa may reflect small paraovarian cyst, or paratubal cyst. I have personally reviewed the images and the above interpretation and agree with the findings. Annabelle MENDEZ US ORDERABLES documented in this encounter Visit Diagnoses Diagnosis Left lower quadrant pain- Primary Abdominal pain, left lower quadrant documented in this encounter Historical Medications * This list may reflect changes made after this encounter. Medication Sig Dispensed Refills Start Date End Date methylphenidate HCl (RITALIN;METHYLIN) 5 mg tablet Take 20 mg by mouth 3 times daily. added in this encounter Care Teams Central Sterile Technician Relationship Specialty Start Date End Date Unknown, Provider, PCP - General 11/09/12 02/09/18 documented as of this encounter
--- OUTSIDE RECORDS SUMMARY | 2023-08-20 22:17 | XMS_ITS | Encounter Summary ---
Author Organization [facility] Address [address] [place] [address] Care Team Providers Care Medical Language Specialist Name Role Phone Natalia Wilson NP Primary Care Provider [phone] Reason for Visit * Reason Comments Back Pain intermitent, 10 s tabbing upper right sided pack pain x 2 days. Pt denies other sx and can't associate pain with any activitity or movement. Pt reports she was drinking 6-12 nips/ day for 2 weeks prior to onset. Reports gallbladder problems as a baby Encounter Details Date Type Department Care Team (Latest Contact Info) Description 02/10/2018 11:07 EST - 02/10/2018 14:50 EST Hospital Encounter [facility] - [address] [address] Kike Palacios MD [address] [place] [address] [phone] Lizbeth Santiago MD [address] [place] [address] [phone] Unknown, MD Zach Acute right-sided thoracic back pain (Primary Dx) Discharge Disposition: Home or Self Care Social History Tobacco Use Types Packs/Day Years Used Date Smoking Tobacco: Every Day Cigarettes Smokeless Tobacco: Never Alcohol Use Standard Drinks/Week Comments Yes 0 (1 standard drink = 0.6 oz pure alcohol) daily, past 2 weeks heavy consumption 6-12 nips a day Sex and Gender Information Value Date Recorded Sex Assigned at Not on file Gender Identity Female 05/22/2022 10:01 EDT Sexual Orientation Not on file documented as of this encounter Last Filed Vital Signs Vital Sign Reading Time Taken Comments Blood Pressure 123/58 02/10/2018 1122 EST Pulse 98 02/10/2018 1122 EST Temperature 36.6 ??C (97.9 ??F) 02/10/2018 1122 EST Respiratory Rate 16 02/10/2018 1122 EST Oxygen Saturation 97% 02/10/2018 1256 EST Inhaled Oxygen Concentration - - Weight - - Height - - Body Mass Index - - documented in this encounter Discharge Diagnoses Diagnosis M54.6 Pain in thoracic spine-M54.6[ICD-10-CM] documented in this encounter Discharge Instructions * Discharge Instructions* Lizbeth Santiago MD - 02/10/2018 14:50 EST Your symptoms are most likely related to you tweaking your back. You need to continue to monitor your symptoms. You may take ibuprofen and or acetaminophen, per the package instructions as needed for pain. Try to stay active, but avoid activities that make the pain worse. If you have worsening pain, bowel or bladder incontinence, weakness, difficulty walking, fevers, chills, are feeling ill or having new symptoms, you should be seen- you may see your PCP or return to the [facility] or ED. Follow up with your PCP if having worse symptoms, are failing to improve over the next couple of weeks. * Attachments The following attachments cannot be sent through Care Everywhere. * BACK PAIN (CZECH) documented in this encounter Medications at Time of Discharge Medication Sig Dispensed Refills Start Date End Date methylphenidate HCl (RITALIN;METHYLIN) 5 mg tablet Take 20 mg by mouth 3 times daily. documented as of this encounter Discharge Disposition Disposition Code Departure Means Destination Home or Self Care documented in this encounter ED Notes * Amber Dolan RN - 02/10/2018 1321 EST Blood drawn via saline lock per protocol, tiger, blue, green and purple tube(s) sent to lab per order. * Lizbeth Santiago MD - 02/10/2018 1309 EST DOS: 02/10/2018 Chief Complaint Patient presents with ??? Back Pain intermitent, 10/10 stabbing upper right sided pack pain x 2 days. Pt denies other sx and can't associate pain with any activitity or movement. Pt reports she was drinking 6-12 nips/ day for 2 weeksprior to onset. Reports gallbladder problems as a baby The patient is a 38 y.o. female who presents today with Back Pain (intermitent, 10/10 stabbing upper right sided pack pain x 2 days. Pt denies other sx and can't associate pain with any activitity ormovement. Pt reports she was drinking 6-12 nips/ day for 2 weeks prior to onset. 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 Can have pain in back with deep inspiration and voiding but pain not reproducible with palpation orwith movements LMP 2 weeks ago abnormal- 3 days and light (typically 7 days and heavy) Sexually active and no contraceptive use. No hx of VTE, no hormonal use NO vaginal discharge or itching no pain with intercourse + ETOH daily usually 5 nips a day- had increased ETOH intake for 2 weeks prior to onset of sxs drinking 8 or more per day due to stress +tobacco and marijuana No IVDU or illicits Review of Systems All other systems reviewed and are negative. No current facility-administered medications for this encounter. Current Outpatient Medications Medication Sig Dispense Refill ??? methylphenidate HCl (RITALIN;METHYLIN) 5 mg tablet Take 20 mg by mouth 3 times daily. No Known Allergies There are no active problems to display for this patient. History reviewed. No pertinent past medical history. Social History Tobacco Use ??? Smoking status: Current Every Day Smoker Packs/day: 0.50 ??? Smokeless tobacco: Never Used Substance Use Topics ??? Alcohol use: Yes Comment: daily, past 2 weeks heavy consumption 6-12 nips a day ??? Drug use: No History reviewed. No pertinent family history. BP 123/58 Pulse 98 Temp 97.9 ??F (36.6 ??C) (Tympanic) Resp 16 SpO2 97% Physical Exam Constitutional: She is oriented to person, place, and time. She appears well- developed and well-nourished. No distress. HENT: Head: Normocephalic and atraumatic. Eyes: EOM are normal. Neck: Normal range of motion. Cardiovascular: Normal rate and regular rhythm. Exam reveals no gallop and no friction rub. No murmur heard. Pulmonary/Chest: Effort normal. She has no wheezes. She has no rales. Abdominal: Bowel sounds are normal. She exhibits no distension. There is tenderness. Diffuse abdominal pain, occasional guarding but exam is inconsistent and changes as I continued exam No CVAT Musculoskeletal: She exhibits no edema. Unable to reproduce pain with palpation of paraspinal muscles or C-L spinous processes Neurological: She is alert and oriented to person, place, and time. Skin: Skin is warm and dry. Psychiatric: She has a normal mood and affect. Consult orders: None PCP: Natalia Wilson Results for orders placed or performed during the hospital encounter of 02/10/18 TEST, URINE Result Value Ref Range Result- Test, Ur Neg Neg HOLD BLUE TOP Result Value Ref Range Hold Blue Top Sample for coagulation will be discarded after 4 hours HOLD GREEN TOP Result Value Ref Range Hold Green Top Hold for further testing. Specimen will be held for 5 days. HOLD PURPLE TOP Result Value Ref Range Hold Purple Top EDTA for hematology will be discarded after 48 hours, differential not available after 12 hours. HOLD SST Result Value Ref Range Hold SST Hold for further testing. Specimen will be held for 5 days. COMPREHENSIVE METABOLIC PANEL (CMP) Result Value Ref Range Potassium 4.8 3.5 - 5.0 mEq/L Sodium 138 136 - 145 mEq/L Chloride 105 96 - 110 mEq/L CO2 28 22 - 32 mEq/L Total Alkaline Phosphatase 93 38 - 126 U/L Bilirubin, Total <0.5 <1.4 mg/dl AST 40 15 - 46 U/L ALT 62 (H) <53 U/L Albumin 4.0 3.4 - 4.9 g/dl Total Protein 6.8 6.3 - 8.2 g/dl Creatinine 0.57 0.52 - 1.04 mg/dl GFR, Calculated 118 >60 ml/min/1.73m2 BUN 8 (L) 10 - 26 mg/dl Calcium 9.2 8.5 - 10.5 mg/dl Calculated Calcium 9.2 8.5 - 10.5 mg/dl Glucose, Serum 99 70 - 100 mg/dl Fasting? Unknown LIPASE Result Value Ref Range Lipase 18 <251 U/L COMPLETE BLOOD COUNT AND DIFFERENTIAL Result Value Ref Range WBC 12.28 4.0 - 12.4 K/cmm RBC 5.13 (H) 3.86 - 5.04 M/cmm Hemoglobin 15.5 (H) 11.6 - 15.2 gm/dl HCT 45.5 (H) 34.9 - 44.4 % MCV 89 81 - 98 fl MCH 30.2 26.7 - 33.3 pg MCHC 34.1 32.1 - 35.9 gm/dl RDW-CV 12.7 <14.7 % RDW-SD 40.7 <50.4 fl PLT 322 141 - 377 K/cmm MPV 9.6 9.5 - 12.7 fl Neutrophils 62.6 % Lymphocytes 27.3 % Monocytes 7.5 % Eosinophils 2.2 % Basophils 0.4 % ABS Neutrophils 7.69 2.20 - 8.85 K/cmm ABS Lymphs 3.35 (H) 1.09 - 3.30 K/cmm ABS Monocytes 0.92 (H) 0.1 - 0.8 K/cmm ABS Eosinophils 0.27 0.03 - 0.61 K/cmm ABS Basophils 0.05 0.01 - 0.11 K/cmm Type of Diff: Automated URINALYSIS MICROSCOPIC ONLY Result Value Ref Range WBC, UA 0 to 3 0 to 3 /HPF RBC, UA 0 to 2 0 to 2 /HPF Squam Epithel, UA None seen None seen /HPF Hyaline Casts, UA < or = 10 < or = 10 /LPF Bacteria, UA None seen None seen /HPF UA Comment Sediment results ED/URGENT CARE ADD-ON Result Value Ref Range Tests to be added D DIMER Number for problems [id number] (URGENT CARE) D-DIMER Result Value Ref Range D-Dimer <200 <230 ng/mL POCT URINE DIPSTICK, CLINITEK Result Value Ref Range Color YELLOW Yellow Clarity, UA Clear Clear Glucose Neg Neg Bilirubin Neg Neg Ketones Neg Neg Specific [place] 1.010 1.001 - 1.035 Blood Trace (A) Neg pH 7.0 4.6 - 8.0 Protein Neg Neg Urobilinogen 0.2 0.2 - 1.0 mg/dL Nitrite Neg Neg Leuk Esterase Neg Neg Tech ID [id number] Radiology orders: CHEST PA AND LATERAL No orders to display Procedures URGENT CARE COURSE A medical screening exam was performed. ASSESSMENT AND PLAN Final diagnoses: Acute right-sided thoracic back pain 38 yo with intermittent episodes of sharp fleeting right thoracic back pain- evaluation here not complete and patient requesting to leave clinic as symptoms had not recurred throughout stay- did notethat VS WNL, exam non specific, CBC, CMP, lipase and Ddimer WNL and CXR neg. Uncertain etiology- patient declined trial of muscle relaxant for possible MSK etiology but did agree to return or go to ED for further eval if sxs recur. No supervision required. DISPOSITION: Discharged The patient's pain was managed to an adequate level weighing risk vs. benefit of further medications. Upon departure from [facility], the patient's pain was 0 on a zero to ten scale. Any further pain treatment will be at the discretion of the provider following up with the patient based on their clinical assessment . Condition at departure from the [facility] : Stable MDM 02/10/2018 17:09 * Gisselle Miller RN - 02/10/2018 1243 EST Patient reports 2 episodes of right sided posterior mid back pain, patient reports pain comes and goes and lasts seconds, Had a twisted ovary about a year ago and it resolved on its own, pain is similar, has had a few episodes of vomiting, home test negative . documented in this encounter Plan of Treatment Upcoming Encounters Date Type Department Care Team (Late st Contact Info) Description 10/22/2023 12:30 EDT Ancillary Procedure [facility] [address] [id number] 10/22/2023 13:15 EDT Initial consult [facility] [address] [id number] Pedrito Plascencia MD [address] [facility], [address] [place] [address] documented as of this encounter Procedures Procedure Name Priority Date/Time Associated Diagnosis Comments CHEST PA AND LATERAL STAT 02/10/2018 14:35 EST ED/URGENT CARE ADD-ON STAT 02/10/2018 14:20 EST Acute right-sided thoracic back pain URINE SEDIMENT (MICRO) WITHOUT REFLEX TO CULTURE STAT 02/10/2018 13:11 EST Acute right-sided thoracic back pain TEST, URINE STAT 02/10/2018 13:11 EST Acute right-sided thoracic back pain POCT URINE DIPSTICK, CLINITEK STAT 02/10/2018 13:11 EST Acute right-sided thoracic back pain HOLD SST STAT 02/10/2018 13:07 EST Acute right-sided thoracic back pain HOLD PURPLE TOP STAT 02/10/2018 13:07 EST Acute right-sided thoracic back pain HOLD GREEN TOP STAT 02/10/2018 13:07 EST Acute right-sided thoracic back pain HOLD BLUE TOP STAT 02/10/2018 13:07 EST Acute right-sided thoracic back pain D-DIMER Routine 02/10/2018 13:07 EST COMPLETE BLOOD COUNT AND DIFFERENTIAL STAT 02/10/2018 13:07 EST Acute right-sided thoracic back pain LIPASE STAT 02/10/2018 13:07 EST Acute right-sided thoracic back pain COMPREHENSIVE METABOLIC PANEL (CMP) STAT 02/10/2018 13:07 EST Acute right-sided thoracic back pain documented in this encounter Results * CHEST PA AND LATERAL (02/10/2018 14:35 EST) Anatomical Region Laterality Modality Other 02/10/2018 14:3 5 EST 02/10/2018 15:03 EST Narrative 02/10/2018 15:03 EST CHEST 2 VIEWS ??02/10/2018 2:35 PM Signs and Symptoms/Comments: ?? Pain Impression: 1. ??Normal dual energy chest Technique: Dual energy PA and lateral chest Comparison: None Findings: The heart is normal and the lungs are clear. Procedure Note Lincoln Spring MD - 02/10/2018 CHEST 2 VIEWS 02/10/2018 2:35 PM Signs and Symptoms/Comments: Pain Impression: 1. Normal dual energy chest Technique: Dual energy PA and lateral chest Comparison: None Findings: The heart is normal and the lungs are clear. Lizbeth Santiago MD IMG DIAGNOSTIC IMAGI NG ORDERABLES * ED/URGENT CARE ADD-ON (02/10/2018 14:20 EST) Tests to be added D DIMER 02/10/2018 14:16 EST [facility] Number for problems [id number] (URGENT CARE) 02/10/2018 14:16 EST [facility] Comment:Performed at [facility], [place], [place] TOPOGRAPHY UNKNOWN / Unknown 02/10/2018 14:20 EST 02/10/2018 14:27 EST Lizbeth Santiago MD HEMATOLOGY & PF4 ORD ERABLES [facility] [address] [place] [address] * URINALYSIS MICROSCOPIC ONLY (02/10/2018 13:11 EST) WBC, UA 0 to 3 0 to 3 /HPF 02/10/2018 13:37 [facility] RBC, UA 0 to 2 0 to 2 /HPF 02/10/2018 13:37 [facility] Squam Epithel, UA None seen None seen /HPF 02/10/2018 13:37 [facility] Hyaline Casts, UA < or = 10 < or = 10 /LPF 02/10/2018 13:37 [facility] Bacteria, UA None seen None seen /HPF 02/10/2018 13:37 [facility] UA Comment Sediment results 02/10/2018 13:37 [facility] Comment: are unreliable on urines unrefrig >2hrs or refrig >8hrs. Performed at [facility], [place], [place] Urine specimen (specimen) URINE / Unknown 02/10/2018 13:11 EST 02/10/2018 13:22 EST Lizbeth Santiago MD URINALYSIS ORDERABLE S Performing Organization Address City/State/[facility] Co de Phone Number [facility] [address] [place] [address] * (ABNORMAL) POCT URINE DIPSTICK, CLINITEK (02/10/2018 13:11 EST) Color YELLOW Yellow 02/10/2018 13:18 [facility] Clarity, UA Clear Clear 02/10/2018 13:18 [facility] Glucose Neg Neg 02/10/2018 13:18 [facility] Bilirubin Neg Neg 02/10/2018 13:18 [facility] Ketones Neg Neg 02/10/2018 13:18 [facility] Specific [place] 1.010 1.001 - 1.035 02/10/2018 13:18 [facility] Blood Trace(A) Neg 02/10/2018 13:18 [facility] pH 7.0 4.6 - 8.0 02/10/2018 13:18 [facility] Protein Neg Neg 02/10/2018 13:18 [facility] Urobilinogen 0.2 0.2 - 1.0 mg/dL 02/10/2018 13:18 [facility] Nitrite Neg Neg 02/10/2018 13:18 [facility] Leuk Esterase Neg Neg 02/10/2018 13:18 [facility] swine nutritionist ID [id number] 02/10/2018 13:18 [facility] Comment:Test performed at [facility] Urine specimen (specimen) URINE / Unknown 02/10/2018 13:11 EST 02/10/2018 13:18 EST Marvin Guillermo MD POINT OF CARE TEST ORDERABLES Performing Organization Address [facility] de Phone Number [facility] [address] [place] [address] * TEST, URINE (02/10/2018 13:11 EST) Pathologist [facility] Result- Test, Ur Neg Neg 02/10/2018 13:36 [facility] Comment: NOTE: False negative results may occur in women who are beyond 5-8 weeks gestation. Diagnosis of should be based on a correlation of test results with typical clinical signs and symptoms. Performed at [facility], [place], [place] Urine specimen (specimen) URINE / Unknown 02/10/2018 13:11 EST 02/10/2018 13:22 EST Marvin Guillermo MD URINALYSIS ORD ERABLES Performing Organization Address City/[facility] Co de Phone Number [facility] [address] [place] [address] * D-DIMER (02/10/2018 13:07 EST) Pathologist [facility] D-Dimer <200 <230 ng/mL 02/10/2018 14:38 [facility] Comment: CUTOFF VALUE FOR THE EXCLUSION OF DVT and PE: 230 ng/mL D-dimer units Any use of the age-adjusted cutoff value is a post-analytic modification of this FDA-approved test and is considered off-label use of the test result. [facility] laboratory does not have literature to support the validity of an age-adjusted cutoff for our specific assay. Performed at [facility], [place], [place] BLOOD SPECIMEN / Unknown 02/10/2018 13:07 EST 02/10/2018 13:31 EST Lizbeth Santiago MD HEMATOLOGY & PF4 ORD ERABLES [facility] [address] [place] [address] * (ABNORMAL) COMPLETE BLOOD COUNT AND DIFFERENTIAL (02/10/2018 13:07 EST) WBC 12.28 4.0 - 12.4 K/cmm 02/10/2018 13:33 [facility] RBC 5.13(H) 3.86 - 5.04 M/cmm 02/10/2018 13:33 [facility] Hemoglobin 15.5(H) 11.6 - 15.2 gm/dl 02/10/2018 13:33 [facility] HCT 45.5(H) 34.9 - 44.4 % 02/10/2018 13:33 [facility] MCV 89 81 - 98 fl 02/10/2018 13:33 [facility] MCH 30.2 26.7 - 33.3 pg 02/10/2018 13:33 [facility] MCHC 34.1 32.1 - 35.9 gm/dl 02/10/2018 13:33 [facility] RDW-CV 12.7 <14.7 % 02/10/2018 13:33 [facility] RDW-SD 40.7 <50.4 fl 02/10/2018 13:33 [facility] PLT 322 141 - 377 K/cmm 02/10/2018 13:33 [facility] MPV 9.6 9.5 - 12.7 fl 02/10/2018 13:33 [facility] % Neutrophils 62.6 % 02/10/2018 13:33 [facility] % Lymphocytes 27.3 % 02/10/2018 13:33 [facility] % Monocytes 7.5 % 02/10/2018 13:33 [facility] % Eosinophils 2.2 % 02/10/2018 13:33 [facility] % Basophils 0.4 % 02/10/2018 13:33 [facility] ABS Neutrophils 7.69 2.20 - 8.85 K/cmm 02/10/2018 13:33 [facility] ABS Lymphs 3.35(H) 1.09 - 3.30 K/cmm 02/10/2018 13:33 [facility] ABS Monocytes 0.92(H) 0.1 - 0.8 K/cmm 02/10/2018 13:33 [facility] ABS Eosinophils 0.27 0.03 - 0.61 K/cmm 02/10/2018 13:33 [facility] ABS Basophils 0.05 0.01 - 0.11 K/cmm 02/10/2018 13:33 [facility] Type of Diff: Automated 02/10/2018 13:33 [facility] Comment:Performed at [place], [place] Blood specimen (specimen) BLOOD SPECIMEN / Unknown 02/10/2018 13:07 EST 02/10/2018 13:31 EST Lizbeth Santiago MD PACKAGES & DNA PROBE ORDERABLES Performing Organization Address [facility] Co de Phone Number [facility] [address] [place] [address] * LIPASE (02/10/2018 13:07 EST) Lipase 18 <251 U/L 02/10/2018 14:04 [facility] Comment:Performed at [place], [place] Blood specimen (specimen) BLOOD SPECIMEN / Unknown 02/10/2018 13:07 EST 02/10/2018 13:31 EST Lizbeth Santiago MD CHEMISTRY & BLOOD GA S ORDERABLES [facility] [address] [place] [address] * (ABNORMAL) COMPREHENSIVE METABOLIC PANEL (CMP) (02/10/2018 13:07 [facility]) Potassium 4.8 3.5 - 5.0 mEq/L 02/10/2018 14:04 [facility] Sodium 138 136 - 145 mEq/L 02/10/2018 14:04 [facility] Chloride 105 96 - 110 mEq/L 02/10/2018 14:04 [facility] CO2 28 22 - 32 mEq/L 02/10/2018 14:04 [facility] Total Alkaline Phosphatase 93 38 - 126 U/L 02/10/2018 14:04 [facility] Bilirubin, Total <0.5 <1.4 mg/dl 02/10/19 19 14:04 [facility] AST 40 15 - 46 U/L 02/10/2018 14:04 [facility] ALT 62(H) <53 U/L 02/10/2018 14:04 [facility] Albumin 4.0 3.4 - 4.9 g/dl 02/10/2018 14:04 [facility] Total Protein 6.8 6.3 - 8.2 g/dl 02/10/2018 14:04 [facility] Creatinine 0.57 0.52 - 1.04 mg/dl 02/10/2018 14:04 [facility] GFR, Calculated 118 >60 ml/min/1.7 3m2 02/10/2018 14:04 [facility] Comment: eGFR calculated using CKD-EPI equation for non Americans. Multiply eGFR by 1.16 for Americans. BUN 8(L) 10 - 26 mg/dl 02/10/2018 14:04 [facility] Calcium 9.2 8.5 - 10.5 mg/dl 02/10/2018 14:04 [facility] Calculated Calcium 9.2 8.5 - 10.5 mg/dl 02/10/2018 14:04 [facility] Glucose, Serum 99 70 - 100 mg/dl 02/10/2018 14:04 EST [facility] Fasting? Unknown 02/10/2018 14:04 EST [facility] Comment:Performed at [place], [place] Blood specimen (specimen) BLOOD SPECIMEN / Unknown 02/10/2018 13:07 EST 02/10/2018 13:31 EST Lizbeth Santiago MD CHEMISTRY & BLOOD GA S ORDERABLES Performing Organization Address [facility]/ZIP Co de Phone Number [facility] [address] [place] [address] * HOLD SST (02/10/2018 13:07 EST) Hold SST Hold for further testing. Specimen will be held for 5 days. 02/10/2018 14:13 EST [facility] Blood specimen (specimen) BLOOD SPECIMEN / Unknown 02/10/2018 13:07 EST 02/10/2018 13:31 EST Lizbeth Santiago MD LAB INFO SERVICE AND SUPPORT & PHONE RESULT Performing Organization Address [facility] Co de Phone Number [facility] [address] [place] [address] * HOLD PURPLE TOP (02/10/2018 13:07 EST) Hold Purple Top EDTA for hematology will be discarded after 48 hours, differential not available after 12 hours. 02/10/2018 13:33 EST [facility] Comment:Performed at [place], [place] Blood specimen (specimen) BLOOD SPECIMEN / Unknown 02/10/2018 13:07 EST 02/10/2018 13:31 EST Lizbeth Santiago MD LAB INFO SERVICE AND SUPPORT & PHONE RESULT Performing Organization Address City/[facility]/ZIP Co de Phone Number [facility] [address] [place] [id number] * HOLD GREEN TOP (02/10/2018 13:07 EST) Hold Green Top Hold for further testing. Specimen will be held for 5 days. 02/10/2018 13:42 EST [facility] Comment:Performed at [place], [place] Blood specimen (specimen) BLOOD SPECIMEN / Unknown 02/10/2018 13:07 EST 02/10/2018 13:31 EST Lizbeth Santiago MD LAB INFO SERVICE AND SUPPORT & PHONE RESULT Performing Organization Address [facility] Co de Phone Number [facility] [address] [place] [address] * HOLD BLUE TOP (02/10/2018 13:07 EST) Hold Blue Top Sample for coagulation will be discarded after 4 hours 02/10/2018 13:42 EST [facility] Comment:Performed at [place], [place] Blood specimen (specimen) BLOOD SPECIMEN / Unknown 02/10/2018 13:07 EST 02/10/2018 13:31 EST Lizbeth Santiago MD LAB INFO SERVICE AND SUPPORT & PHONE RESULT Performing Organization Address [facility] Co de Phone Number [facility] [address] [place] [address] documented in this encounter Visit Diagnoses Diagnosis Acute right-sided thoracic back pain- Primary documented in this encounter Orders Nursing Count Last Ordered Date First Orde red Date INSERT PERIPHERAL IV 1 02/10/2018 documented in this encounter Care Teams Medical Language Specialist Relationship Specialty Start Date End Date Natalia Wilson NP PCP - General 02/10/18 06/05/18 documented as of this encounter
--- OUTSIDE RECORDS SUMMARY | 2023-08-20 22:17 | XMS_ITS | Encounter Summary ---
Author Organization [facility] Address [address] [place] [address] Care Team Providers Care Farm Operations Manager Name Role Phone Unavailable Primary Care Provider Unavailabl e Encounter Details Date Type Department Care Team (Late st Contact Info) Description 05/20/2004 Results Only [facility] - Maple conversion [address] [place] [address] Solis Maldonado MD [address] [place] [address] Social History Tobacco Use Types Packs/Day Years Used Date Smoking Tobacco: Never Assessed Sex and Gender Information Value Date Recorded Sex Assigned at Not on file Gender Identity Female 05/22/2022 10:01 EDT Sexual Orientation Not on file documented as of this encounter Plan of Treatment Upcoming Encounters Date Type Department Care Team (Late st Contact Info) Description 10/22/2023 12:30 EDT Ancillary Procedure [facility] V[facility] Surgery [address] [id number] 10/22/2023 13:15 EDT Initial consult [facility] [address] [address] Pedrito Plascencia MD [address] [facility], [address] [place] [address] documented as of this encounter Procedures Procedure Name Priority Date/Time Associated Diagnosis Comments CYTOPATHOLOGY Routine 05/20/2004 0:00 EDT documented in this encounter Results * CYTOPATHOLOGY (05/20/2004 0:00 EDT) Pathology Report: CYTOPATHOLOGY REPORT Reports generated via electronic interface contain original data; however they are lacking the format of the original report. Caution should be taken when reading/interpreti ng unformatted reports. Name: ? RAYNA WOOD ? Accession #: ? [id number] : ? 1980 (Age: 24) ??F ?Collect Date: ? 05/20/2004 Location: ? [facility] ? Receive Date: ? 05/26/2004 Provider: ?SOLIS MALDONADO MD Copy to: ? Specimen/Source: ?ThinPrep Pap Test, Cervix/Endocervix Last Menstrual Period: ? 05/13/04 Previous Gynecologic Pathology: ? LSIL Treatment History: ? Colposcopy: 12/12 Other: ? HPVA - HPV testing requested if ASC-US on the current ThinPrep Pap test. ? SPECIMEN ADEQUACY ? Satisfactory for Evaluation - transformation zone component present GENERAL CATEGORIZATION ? Negative for Intraepithelial Lesion or Malignancy INTERPRETATION ? Reactive cellular changes associated with inflammation present (includes repair). ? Document reviewed and electronically signed by: ? SHAILESH COATS MD ? Report Date: ??06/02/2004 14:44 End of Report [facility] 05/20/2004 05/26/2004 Solis Maldonado MD PATHOLOGY ORDERA [place] [phone] documented in this encounter Visit Diagnoses Not on filedocumented in this encounter
--- OUTSIDE RECORDS SUMMARY | 2023-08-20 22:17 | XMS_ITS | Encounter Summary ---
Author Organization [facility] Address [address] [place] [address] Care Team Providers Care Old Coin Dealer Name Role Phone Sharron Cintron MD Primary Care Provider [phone] Encounter Details Date Type Department Care Team (Late st Contact Info) Description 07/29/2020 Lab Requisition [facility] Pathology & [place] [address] Outr Resulting Lab, Provider Social History Tobacco Use Types Packs/Day Years [...] 10/22/2023 12:30 EDT Ancillary Procedure [facility] Vascular Surgery - [address] [id number] 10/22/2023 13:15 EDT Initial consult [facility] Vascular Surgery - [address] [id number] Pedrito Plascencia MD [address] [place] [address], [address] [place] [address] documented as of this encounter Procedures Procedure Name Priority Date/Time Associated Diagnosis Comments ZZCOVID-19 TEST [facility] PCR Today 07/29/2020 10:50 EDT COVID-19 TESTING Routine 07/29/2020 10:5 0 EDT documented in this encounter Results * COVID-19 TEST [facility] PCR (07/29/2020 10:50 EDT) Swab ENTIRE NASOPHARYNX / Unknown 07/29/2020 10:50 EDT 07/29/2020 21:53 EDT Provider Outr Resulting Lab MICROBIOLOGY - GENERAL ORDERABLES [facility] [address] [place] [address] * COVID-19 TESTING (07/29/2020 10:50 EDT) COVID-19 rt-PCR Result Negative Negative 07/30/2020 11:30 EDT [facility] Comment: This test has not been FDA cleared or approved. This test has been authorized by FDA under an EUA for use by authorized laboratories. This test has been authorized only for detection of nucleic acid from 2019-nCoV, not for any other viruses or pathogens. This test is only authorized for the duration of the declaration that circumstances exist justifying the authorization of emergency use of in vitro diagnostic tests for detection and/or diagnosis of 2019-nCoV under section 564(b)(1) of Act, 21 U.S.C ?? 360bbb-3(b) (1), unless the authorization is terminated or revoked sooner. Negative results do not preclude 2019-nCoV infection and should not be used as the sole basis for treatment or other patient management decisions. Negative results must be combined with clinical observations, patient history, and epidemiological information. Testing was performed using the geovanna SARS-CoV-2 assay ([employer] on the Geovanna 6800 System Performing Lab Geovanna 6800 [facility] 07/30/2020 11:30 EDT [facility] Swab 07/29/2020 10:5 0 EDT 07/29/2020 21:53 EDT Provider Outr Resulting Lab MICROBIOLOGY - GENERAL ORDERABLES [facility] [address] [place] [address] documented in this encounter Visit Diagnoses Not on filedocumented in this encounter Care Teams Old Coin Dealer Relationship Specialty Start Date End Date Sharron Cintron MD [address] [facility] [address] [place] [address] PCP - General 06/06/18 documented as of this encounter
--- OUTSIDE RECORDS SUMMARY | 2023-08-20 22:17 | XMS_ITS | Encounter Summary ---
Author Organization [facility] Address [address] [place] [address] Care Team Providers Care Direct Customer Service Representative Name Role Phone Unknown, Provider Primary Care Provider Natalia Wilson NP Primary Care Provider [phone] Sharron Cintron MD Primary Care Provider Encounter Details Date Type Department Care Team (Late st Contact Info) Description 11/11/2007 Before PRISM Converted Visit (Maple) [facility] - Maple conversion [address] [place] [address] Katherine Niño, [address] [place], [place] [address] Social History Tobacco Use Types Packs/Day Years Used Date Smoking Tobacco: Never Assessed Sex and Gender Information Value Date Recorded Sex Assigned at Not on file Gender Identity Female 05/22/2022 10:01 EDT Sexual Orientation Not on file documented as of this encounter Plan of Treatment Upcoming Encounters Date Type Department Care Team (Late st Contact Info) Description 10/22/2023 12:30 EDT Ancillary Procedure [facility] Vascular Surgery - [address] [address] 10/22/2023 13:15 EDT Initial consult [facility] Vascular Surgery [address] [address] Pedrito Plascencia MD 111 [facility], [address] [place] [address] documented as of this encounter Procedures Procedure Name Priority Date/Time Associated Diagnosis Comments CHLAMYDIA/N. GONORRHOEAE AMPLIFIED NUCLEIC ACID Routine 05/22/2008 17:15 EDT CYTOPATHOLOGY Routine 05/22/2008 0:00 EDT RETIREMENT ROUTINE 11/11/2007 16:09 EDT documented in this encounter Results * CHLAMYDIA/GC AMPLIFIED (05/22/2008 17:15 EDT) Specimen Description Cervix [facility] Result No Chlamydia trachomatis DNA detected by credit risk review officer mediated amplification. [facility] Result No Neisseria gonorrhoeae DNA detected by credit risk review officer mediated amplification. [facility] 05/22/2008 17:1 5 EDT 05/22/2008 22:31 EDT Provider Unknown MICROBIOLOGY - GENER AL ORDERABLES [facility] [address] [place] [address] * CYTOPATHOLOGY (05/22/2008 0:00 EDT) Pathology Report: CYTOPATHOLOGY REPORT ? Reports generated via electronic interface contain original data; ? however they are lacking the format of the original report. ? Caution should be taken when reading/interpreti ng unformatted reports. ? Name: ? RAYNA WOOD ? Accession #: ? [id number] ? : ? 1980 (Age: 28) ??F ?Collect Date: ? 05/22/2008 ? Location: ? [facility] ? Receive Date: ? 05/23/2008 ? Provider: ?KATHERINE SALINAS CNM ? Copy to: ? Specimen/Source: ?Pap Test, Cervix/Endocervix, ThinPrep Imaging System ? with manual evaluation ? Last Menstrual Period: ? Menstrual/Pregnanc y Status: ? Post ? Previous Gynecologic Pathology: ? ASC-US: 05/2003 ? HPV: + 05/2003, 10/08 WNL ? LSIL: 5/04 ? Treatment History: ? Colposcopy: 5/04 ? Other: ? HPVA - HPV testing requested if ASC-US on the current ThinPrep Pap test. ? SPECIMEN ADEQUACY ? Satisfactory for Evaluation ? - transformation zone component present ? GENERAL CATEGORIZATION ? Negative for Intraepithelial Lesion or Malignancy ? Document reviewed and electronically signed by: ? Oumar Childers, CT(ASCP) ? Report Date: ??05/24/2008 15:57 ? End of Report ? [facility] 05/22/2008 05/23/2008 Katherine Niño JAMILClaudia PATHOLOGY ORDERABLES [facility] [address] [place] [address] * RETIREMENT ROUTINE (11/11/2007 16:09 EDT) Anatomical Region Laterality Modality Other 11/11/2007 16:0 9 EDT Narrative 06/25/2008 8:05 EDT ROUTINE,[id number]/NO RISK SCREENING Please refer to the separate [facility] report. ??Contact Maternal Medicine. Procedure Note Luba Salgado MD - 06/25/2008 ROUTINE,[id number]/NO RISK SCREENING Please refer to the separate [facility] report. Contact Maternal Medicine. Katherine Salinas FRANCIS IMG US RETIREMENT ORDERABLE S documented in this encounter Visit Diagnoses Not on filedocumented in this encounter Care Teams Direct Customer Service Representative Relationship Specialty Start Date End Date Unknown, MD Zach PCP - General 11/09/12 02/09/18 Natalia Wilson NP PCP - General 02/10/18 06/05/18 Sharron Cintron MD [address] [phone] PCP - General 06/06/18 documented as of this encounter
--- OUTSIDE RECORDS SUMMARY | 2023-08-20 22:17 | XMS_ITS | Encounter Summary ---
Author Organization [facility] Address [address] [place] [address] Care Team Providers Care Senior Portfolio Analyst Name Role Phone Unknown, Provider Primary Care Provider Encounter Details Date Type Department Care Team (Latest Contact Info) Description 07/15/2017 10:55 EDT - 07/15/2017 23:59 EDT Hospital Encounter [facility] [address] [place] [address] Natalia Wilson NP [address] [place] [phone] Discharge Disposition: Home or Self Care Social [...] general adult medical examination without abnormal findings-Z00.00[ICD-10-CM] documented in this encounter Medications at Time [...] 10/22/2023 12:30 EDT Ancillary Procedure [facility] Vascular Surgery [address] [address] 10/22/2023 13:15 EDT Initial consult [facility] Vascular Surgery [address] [address] Pedrito Plascencia MD [address] [place] [address], [address] [place] [phone] documented as of this encounter Visit Diagnoses Not on filedocumented in this encounter Care Teams Senior Portfolio Analyst Relationship Specialty Start Date End Date Unknown, Provider, PCP - General 11/09/12 02/09/18 documented as of this encounter
--- OUTSIDE RECORDS SUMMARY | 2023-08-20 22:17 | XMS_ITS | Encounter Summary ---
Author Organization [facility] Address [address] [place] [address] Care Team Providers Care Exhibit Designer Name Role Phone Sharron Cintron MD Primary Care Provider [phone] Encounter Details Date Type Department Care Team (Late st Contact Info) Description 06/06/2019 Lab Requisition [facility] Pathology & Laboratory Medicine - [address] [address] Rebecca Graham, SOCIAL PSYCHOLOGIST-C [address] [place] [phone] Abnormal weight gain; Hereditary and idiopathic neuropathy, unspecified Social History Tobacco Use Types Packs/Day Years [...] Info) Description 10/22/2023 12:30 EDT Ancillary Procedure [facility] Vascular Surgery - [address] [phone] 10/22/2023 13:15 EDT Initial consult [facility] Vascular Surgery - [address] [phone] Pedrito Plascencia MD [address] [place] [address], [address] [place] [phone] documented as of this encounter Procedures Procedure Name Priority Date/Time Associated Diagnosis Comments RISA EHRLICHIA SEROLOGY PANEL Today 06/06/2019 10:45 EDT Abnormal weight gain Hereditary and idiopathic neuropathy, unspecified THYROID CASCADE Today 06/06/2019 10:45 EDT Abnormal weight gain Hereditary and idiopathic neuropathy, unspecified HEPATITIS C AB W REFLEX TO HCV RNA BY PCR Today 06/06/2019 10:45 EDT Abnormal weight gain Hereditary and idiopathic neuropathy, unspecified COMPLETE BLOOD COUNT Today 06/06/2019 10:45 EDT Abnormal weight gain Hereditary and idiopathic neuropathy, unspecified ANTI NUCLEAR AB (RENA), IFA Today 06/06/2019 10:45 EDT Abnormal weight gain Hereditary and idiopathic neuropathy, unspecified HEMOGLOBIN A1C Today 06/06/2019 10:45 EDT Abnormal weight gain Hereditary and idiopathic neuropathy, unspecified VITAMIN B12 Today 06/06/2019 10:45 EDT Abnormal weight gain Hereditary and idiopathic neuropathy, unspecified COMPREHENSIVE METABOLIC PANEL (CMP) Today 06/06/2019 10:45 EDT Abnormal weight gain Hereditary and idiopathic neuropathy, unspecified documented in this encounter Results * EHRLICHIA SEROLOGY PANEL (06/06/2019 10:45 EDT) Anaplasma phagocytophilum Ab, IgG, S <1:64 <1:64 titer 06/12/2019 14:09 EDT [facility] Comment: ADDITIONAL INFORMATION This test was developed using an analyte specific reagent. Its performance characteristics were determined by [facility] in a manner consistent with CLIA requirements. This test has not been cleared or approved by the U.S. Food and Drug Administration. Ehrichia Chaffeensis (HME) Ab, IgG <1:64 <1:64 titer 06/12/2019 14:09 EDT [facility] Comment: ADDITIONAL INFORMATION This test was developed using an analyte specific reagent. Its performance characteristics were determined by [facility] in a manner consistent with CLIA requirements. This test has not been cleared or approved by the U.S. Food and Drug Administration. Test Performed by: [facility] [address] [place] [address] Netting Inspector: Maverick Hoover M.D. Ph.D.; CLIA# [id number] Blood VENOUS BLOOD / Unknown Non-Lab Collect / Unknown 06/06/2019 10:45 EDT 06/06/2019 14:29 EDT Rebecca MANRIQUEZ-C IMMUNOLOGY AND SERO LOGY ORDERABLES [facility] [address] [place] [address] * HEPATITIS C AB W REFLEX TO HCV RNA BY PCR (06/06/2019 10:45 EDT) Pathologist [facility] Hep C Antibody Negative Negative 06/09/2019 15:22 EDT [facility] Blood VENOUS BLOOD / Unknown Non-Lab Collect / Unknown 06/06/2019 10:45 EDT 06/06/2019 14:29 EDT Rebecca MANRIQUEZ-C CHEMISTRY & BLOOD G ORDERABLES [facility] [address] [place] [address] * COMPLETE BLOOD COUNT (06/06/2019 10:45 EDT) WBC 9.04 4.00 - 12.40 K/cmm 06/06/2019 15:22 EDT [facility] RBC 4.75 3.86 - 5.04 M/cmm 06/06/2019 15:22 EDT [facility] Hemoglobin 13.3 11.6 - 15.2 gm/dL 06/06/2019 15:22 EDT [facility] HCT 40.2 34.9 - 44.4 % 06/06/2019 15:22 EDT [facility] MCV 85 81 - 98 fl 06/06/2019 15:22 EDT [facility] MCH 28.0 26.7 - 33.3 pg 06/06/2019 15:22 EDT [facility] MCHC 33.1 32.1 - 35.9 gm/dL 06/06/2019 15:22 T [facility] RDW-CV 13.2 <14.7 % 06/06/2019 15:22 T [facility] RDW-SD 41.1 <50.4 fl 06/06/2019 15:22 EDT [facility] PLT 363 141 - 377 K/cmm 06/06/2019 15:22 T [facility] MPV 9.7 9.5 - 12.7 fl 06/06/2019 15:22 EDT [facility] Blood VENOUS BLOOD / Unknown Non-Lab Collect / Unknown 06/06/2019 10:45 EDT 06/06/2019 14:29 EDT Rebecca EVANSP-C HEMATOLOGY & PF4 OR DERABLES Performing Organization Address City/[facility]/ZIP Co de Phone Number [facility] [address] [place] [address] * VITAMIN B12 (06/06/2019 10:45 EDT) Vitamin B12 251 211 - 911 pg/mL 06/07/2019 10:42 EDT [facility] Blood VENOUS BLOOD / Unknown Non-Lab Collect / Unknown 06/06/2019 10:45 EDT 06/06/2019 14:29 EDT Rebecca EVANSP-C CHEMISTRY & BLOOD G ORDERABLES Performing Organization Address City/[facility] Co de Phone Number [facility] [address] [place] [address] * HEMOGLOBIN A1C (06/06/2019 10:45 EDT) Hemoglobin A1c 5.4 <5.7 % 06/07/2019 12:02 EDT [facility] Comment: Glycemic Status References: Normal: ??<5.7% Pre-Diabetes: ??5.7% - 6.4% Diagnostic of Diabetes: ??> or = 6.5% (if confirmed) Goals for glycemic control in diabetics (ADA 2017): <7.0% target for non adults with diabetes. <7.5% target for children and adolescents with Type I Diabetes. More or less stringent targets may be appropriate for individual patients. Est Avg Glucose 108 mg/dL 0 12:02 EDT [facility] Comment: The eAG represents the A1c result expressed as average glucose in mg/dL. Blood VENOUS BLOOD / Unknown Non-Lab Collect / Unknown 06/06/2019 10:45 EDT 06/06/2019 14:29 EDT Rebecca Graham SOCIAL PSYCHOLOGIST-C CHEMISTRY & BLOOD G ORDERABLES [facility] [address] [place] [address] * ANTI NUCLEAR AB (RENA), IFA (06/06/2019 10:45 EDT) RENA Interpretation Negative Negative 2019 13:17 EDT [facility] Blood VENOUS BLOOD / Unknown Non-Lab Collect / Unknown 06/06/2019 10:45 EDT 06/06/2019 14:29 EDT Narrative [facility] - 06/07/2019 13:17 EDT Results were obtained with the INOVA NOVA Lite HEp-2 RENA Kit by indirect immunofluorescence. Rebecca EVANSP-C IMMUNOLOGY AND SERO LOGY ORDERABLES Performing Organization Address [facility]/ZIP Co de Phone Number [facility] [address] [place] [address] * THYROID CASCADE (06/06/2019 10:45 EDT) Pathologist [facility] TSH 1.26 0.47 - 4.68 uIU/mL 06/06/2019 15:22 EDT [facility] Blood VENOUS BLOOD / Unknown Non-Lab Collect / Unknown 06/06/2019 10:45 EDT 06/06/2019 14:29 EDT [facility] - 06/06/2019 15:22 EDT NOTE: TSH [place] is not recommended for patients in which pituitary or hypothalamic disorders are suspected. The results of this assay can be falsely lowered due to the consumption of Biotin. Rebecca EVANSP-C CHEMISTRY & BLOOD G ORDERABLES Performing Organization Address [facility] Co de Phone Number [facility] [address] [place] [address] * (ABNORMAL) COMPREHENSIVE METABOLIC PANEL (CMP) (06/06/2019 10:45 EDT) Pathologist [facility] Sodium 135(L) 136 - 145 mEq/L 06/06/2019 15:22 [facility] Potassium 4.1 3.5 - 5.0 mEq/L 06/06/2019 15:22 [facility] Chloride 101 96 - 110 mEq/L 06/06/2019 15:22 [facility] CO2 Total 25 22 - 32 mEq/L 06/06/2019 15:22 [facility] Glucose 129(H) 70 - 100 mg/dL 06/06/2019 15:22 [facility] BUN 11 10 - 26 mg/dL 06/06/2019 15:22 [facility] Creatinine 0.56 0.52 - 1.04 mg/dL 06/06/2019 15:22 [facility] eGFR 118 >60 mL/min/1.7 3m2 06/06/2019 15:22 [facility] Comment:eGFR calculated colt smith CKD-EPI equation for non- Americans. Multiply eGFR by 1.16 for patients. Total Protein 6.7 6.3 - 8.2 g/dL 06/06/2019 15:22 [facility] Albumin 4.0 3.4 - 4.9 g/dL 06/06/2019 15:22 [facility] Alkaline Phosphatase 89 38 - 126 U/L 06/06/2019 15:22 [facility] AST 20 15 - 46 U/L 06/06/2019 15:22 [facility] ALT 21 <35 U/L 06/06/2019 15:22 [facility] Bilirubin, Total <0.5 <1.4 mg/dL 06/06/19 20 15:22 [facility] Calcium 9.0 8.5 - 10.5 mg/dL 06/06/2019 15:22 [facility] Calculated Calcium 9.0 8.5 - 10.5 mg/dL 06/06/2019 15:22 [facility] Blood VENOUS BLOOD / Unknown Non-Lab Collect / Unknown 06/06/2019 10:45 EDT 06/06/2019 14:29 EDT Rebecca Graham SOCIAL PSYCHOLOGIST-C CHEMISTRY & BLOOD G ORDERABLES Performing Organization Address City/State/[facility] Co de Phone Number [facility] [address] [place] [address] documented in this encounter Visit Diagnoses Diagnosis Abnormal weight gain Hereditary and idiopathic neuropathy, unspecified documented in this encounter Care Teams Exhibit Designer Relationship Specialty Start Date End Date Sharron Cintron MD [address] [phone] PCP - General 06/06/18 documented as of this encounter
--- OUTSIDE RECORDS SUMMARY | 2023-08-20 22:17 | XMS_ITS | Encounter Summary ---
Author Organization [facility] Address [address] [place] [address] Care Team Providers Care Records Supervisor Name Role Phone Sharron Cintron MD Primary Care Provider [phone] Encounter Details Date Type Department Care Team (Late st Contact Info) Description 04/08/2022 Lab Requisition [facility] Pathology & Laboratory Medicine [address] [address] Outr Resulting Lab, Provider Social History Tobacco [...] Info) Description 10/22/2023 12:30 EDT Ancillary Procedure [facility] Vascular Surgery - [address] [id number] 10/22/2023 13:15 EDT Initial consult [facility] Vascular Surgery - [address] [id number] Pedrito Plascencia MD [address] [place] [address], [address] 5 [place] [address] documented as of this encounter Procedures Procedure Name Priority Date/Time Associated Diagnosis Comments HIV 1/2 ANTIGEN AND ANTIBODY, 4TH GENERATION Routine 04/08/2022 11:00 EST documented in this encounter Results * HIV 1/2 ANTIGEN AND ANTIBODY, 4TH GENERATION (04/08/2022 11:00 EST) HIV 1 and 2 Antibody/p24 Antigen, 4th Generation Negative Negative 04/09/2022 10:12 EST [facility] Comment:If acute HIV-1 infec tion is suspected in a high risk patient, submit plasma specimen for HIV-1 RNA quantitation test. Blood VENOUS BLOOD / Unknown 04/08/2022 11:00 EST 04/08/2022 22:20 EST Narrative [facility] - 04/09/2022 10:12 EST Fourth Generation assay performed on the Siemens Centaur XPT. Provider Outr Resulting Lab IMMUNOLOGY A ND SEROLOGY ORDERABLES [facility] [address] [place] [address] documented in this encounter Visit Diagnoses Not on filedocumented in this encounter Care Teams Records Supervisor Relationship Specialty Start Date End Date Sharron Cintron MD [address] [facility] [address] [place] [address] PCP - General 06/06/18 documented as of this encounter
--- OUTSIDE RECORDS SUMMARY | 2023-08-20 22:17 | XMS_ITS | Encounter Summary ---
Author Organization [facility] Address [address] [place] [address] Care Team Providers Care Engineer Specialist Name Role Phone Sharron Cintron MD Primary Care Provider [phone] Reason for Visit * Auth/Cert (Routine) Specialty Diagnoses / Procedures [facility] Referred To Contact Diagnoses Cardiomyopathy (HCC-CMS) Cardiomyopathy (HCC) [I42.9] Procedures LEFT HEART CATH Cupid, Diploma Maker Referral ID Status Reason Start Date Expiration Date Visits Re quested Visits Authorized [id number] 04/15/2022 1 1 Encounter Details Date Type Department Care Team (Late st Contact Info) Description 05/22/2022 9:59 EDT - 05/22/2022 17:[address] [facility] Invasive Cardiology Unit [address] [place] [address] Sage Vaca MD [address] [facility], Level 1 [place] [address] Cardiomyopathy (HCC-CMS) Discharge Disposition: Home or Self Care Social [...] 05/22/2022 1630 EDT patien t movement Pulse - - Temperature 36.4 ??C (97.5 ??F) 05/22/2022 1455 [...] mg by mouth 2 times daily. iron-folic urhf-G-U18-biotin 75 mg iron- 1 mg-175 mg capsule,ext release multiphase Take by mouth daily. loratadine 10 mg capsule Take 10 mg by mouth daily. methylphenidate HCl (RITALIN;METHYLIN) 5 mg tablet Take 20 mg by mouth 3 times daily. metoprolol SUCCinate 50 mg capsule,sprinkle,ER 24hr Take 50 mg by mouth daily. vit,oneil 77-ucax-tmxqp ( LOW IRON) 27 mg iron- 1 mg tablet Take by mouth daily. sacubitriL-valsartan (ENTRESTO) 24-26 mg tablet Take 1 Tablet by mouth 2 times daily. torsemide (DEMADEX) 20 mg tablet Take 20 mg by mouth daily. documented as of this encounter Discharge Disposition Disposition Code Departure Means Destination Home or Self Care Wheelchair Home documented in this encounter Progress Notes * Pedro Wells RN - 05/20/2022 1008 EDT Precardiac Cath Nursing Checklist Recent Labs: Lab Results Component Value Date BUN 11 06/06/2019 CREATININE 0.56 06/06/2019 HGB 13.3 06/06/2019 CALCGFR 118 06/06/2019 Hgt: Height: 157.5 cm (62) Wgt:Weight : (!) 105.7 kg (233 lb) Allergies: No Known Allergies Local Pharmacy [id number] - [place], [place] - [address] [facility] [address] [facility] [facility] [address] [place] [address] Cardiac History: Stress Test? No Reason for Cath: cardiomyopathy Anginal equivalent:: Cardiac Procedures: no Stent Type/Size: Cardiac surgery: no Medical/Surgical History: Patient has a past medical history of Asthma and CHF (congestive heart failure) ([facility]) (HCC) ([facility]). Patient has a past surgical history that [...] instructed to register on the 3rd floor [facility] Lobby. Transportation Issues: No Patient/family instructed that they will need a designated otr tanker truck driver if they are discharged on the dayof the procedure. Medications: Medication list: Patient/family instructed to bring medication list with them on the day of the procedure. Anticoagulants/Antiplatelets: Takes Aspirin 81 mg daily Anti-Anginal meds: B-Blockers Pt will hold Torsemide PEDRO WELLS RN * Pedro Wells RN - 05/18/2022 1013 EDT Attempting to reach pt regading [facility] instructions, unable to leave VM. documented in [...] symptoms and is referred for left heart catheterization.p t was evaluated in mar 2022 with ongoign [...] ??? Asthma ??? CHF (congestive heart failure) ([facility]) ([facility]) ([facility]) Past Surgical History: Past Surgical History: Procedure [...] by mouth 2 times daily. ??? iron-folic tjws-U-L79-biotin 75 mg iron- 1 mg-175 mg capsule,ext [...] 50 mg by mouth daily. ??? vit,oneil 03-fskk-unzxk ( LOW IRON) 27 mg iron- 1 [...] the procedure. Martha Anglin MD PGY-7, Interventional Machine Edge Bander Pager: [phone]; Epic secure chat preferred Associated attestation - Sage [...] as indicated. Sage Vaca MD, Cardiology, Pager #[phone], 13:28 05/22/22 documented in this encounter Procedure [...] artery Procedure: She was brought to [facility] for the procedure: [...] procedural complication required) Sage Vaca MD PagerNumber: [phone] 05/22/2022 14:22 documented in this encounter Plan of Treatment Upcoming Encounters Date Type Department Care Team (Late st Contact Info) Description 10/22/2023 12:[address] [facility] Vascular Surgery [address] [id number] 10/22/2023 13:[address] [facility] Vascular Surgery [address] [address] Pedrito Plascencia MD [address] [place] [address], [address] [place] [phone] documented as of this encounter Procedures Procedure Name Priority Date/Time Associated Diagnosis Comments ECG REPORT - SCANNED 05/27/2022 7:18 EDT CARDIAC CATHETERIZATION Routine 05/23/19 23 14:24 EDT Cardiomyopathy (HCC-CMS) ECG REPORT - SCANNED 05/22/2022 11:09 EDT [...] 7:18 EDT) 05/27/2022 7:18 EDT Scan 2 Call Center Operator PROCEDURE/MINOR TREMAYNE GICAL ORDERABLES * LEFT HEART CATH (05/22/2022 14:24 EDT) Anatomical Region Laterality Modality Vehicle Calibration Engineer 05/22/2022 13:5 9 EDT Narrative 05/25/2022 17:32 EDT Cardiology [address] [place] [address] Catheterization Laboratory Study Patient: Rayna Regan M ?Study Date: ?05/22/2022 ?Accession #: ? [id number] : ? 1980 Referring: Sage Vaca MD [...] was performed without ?? intervention. 3. Recommendations: ACC recommendation: Medical therapy and/or ?? counseling. RECOMMENDATIONS: ACC recommendation: Medical therapy and/or counseling. HISTORY: Dyspnea. [...] 4. Right radial artery access. A 6FR/.021 [place] Sheath Slender sheath ?? was advanced into [...] EDT) 05/22/2022 11:0 9 EDT Scan 2 Call Center Operator PROCEDURE/MINOR TREMAYNE GICAL ORDERABLES * (ABNORMAL) NT PRO BNP (05/22/2022 11:00 EDT) [facility] NT-pro BNP 133(H) <95 pg/mL 05/22/2022 14:00 EDT [facility] Comment: In the acute setting NT-proBNP values <300 pg/mL have a 98% NPV for excluding acute heart failure. In outpatient populations, NT-proBNP values <125 have a 99% NPV for excluding heart failure. Blood VENOUS BLOOD / Unknown Venipuncture / Unknown 05/22/2022 11:00 EDT 05/22/2022 11:07 EDT Magalys Ham MD CHEMISTRY & BLOOD GA S ORDERABLES [facility] [address] [place] [address] * PROTIME (05/22/2022 11:00 EDT) [facility] I.N.R. 1.1 0.9 - 1.1 Ratio 05/22/2022 11:24 EDT [facility] Pro Time 12.2 9.7 - 12.8 secs 05/22/2022 11:24 [facility] Blood VENOUS BLOOD / Unknown Venipuncture / Unknown 05/22/2022 11:00 EDT 05/22/2022 11:07 EDT Narrative [facility] - 05/22/2022 11:24 EDT Moderate Intensity Coumadin INR = 2.0-3.0 Adjustments in anticoagulant therapy dose should be based on the INR and NOT on the Protime. Magalys Ham MD HEMATOLOGY & PF4 ORD ERABLES [facility] [address] [place] [address] * (ABNORMAL) COMPLETE BLOOD COUNT (05/22/2022 11:00 EDT) WBC 9.48 4.00 - 12.40 K/cmm 05/22/2022 11:11 [facility] RBC 4.95 3.86 - 5.04 M/cmm 05/22/2022 11:11 [facility] Hemoglobin 14.8 11.6 - 15.2 gm/dL 05/22/2022 11:11 [facility] HCT 43.0 34.9 - 44.4 % 05/22/2022 11:11 [facility] MCV 87 81 - 98 fl 05/22/2022 11:11 [facility] MCH 29.9 26.7 - 33.3 pg 05/22/2022 11:11 [facility] MCHC 34.4 32.1 - 35.9 gm/dL 05/22/2022 11:11 [facility] RDW-CV 12.3 <14.7 % 05/22/2022 11:11 [facility] RDW-SD 38.6 <50.4 fl 05/22/2022 11:11 [facility] PLT 300 141 - 377 K/cmm 05/22/2022 11:11 [facility] MPV 9.3(L) 9.5 - 12.7 fl 05/22/2022 11:11 EDT [facility] Blood VENOUS BLOOD / Unknown Venipuncture / Unknown 05/22/2022 11:00 EDT 05/22/2022 11:07 EDT Magalys Ham MD HEMATOLOGY & PF4 ORD ERABLES Performing Organization Address [facility] de Phone Number [facility] [address] [place] [address] * ELECTROLYTES (05/22/2022 11:00 EDT) Sodium 138 136 - 145 mmol/L 05/22/2022 11:22 EDT [facility] Potassium 3.6 3.5 - 5.0 mmol/L 05/22/2022 11:22 EDT [facility] Chloride 100 96 - 110 mmol/L 05/22/2022 11:22 EDT [facility] CO2 Total 29 22 - 32 mmol/L 05/22/2022 11:22 EDT [facility] Anion Gap 9 5 - 14 05/22/2022 11:22 EDT [facility] Blood VENOUS BLOOD / Unknown Venipuncture / Unknown 05/22/2022 11:00 EDT 05/22/2022 11:07 EDT Magalys Ham MD CHEMISTRY & BLOOD GA S ORDERABLES Performing Organization Address [facility] de Phone Number [facility] [address] [place] [address] * CREATININE (05/22/2022 11:00 EDT) Creatinine 0.55 0.52 - 1.04 mg/dL 05/22/2022 11:22 EDT [facility] eGFR 117 >60 mL/min/1.73 m2 05/22/2022 11:22 EDT [facility] Blood VENOUS BLOOD / Unknown Venipuncture / Unknown 05/22/2022 11:00 EDT 05/22/2022 11:07 EDT Magalys Ham MD CHEMISTRY & BLOOD GA S ORDERABLES Performing Organization Address [facility]/ZIP Co de Phone Number [facility] [address] [place] [address] * BUN (05/22/2022 11:00 EDT) BUN 13 10 - 26 mg/dL 05/22/2022 11:22 EDT [facility] Blood VENOUS BLOOD / Unknown Venipuncture / Unknown 05/22/2022 11:00 EDT 05/22/2022 11:07 EDT Magalys Ham MD CHEMISTRY & BLOOD GA S ORDERABLES Performing Organization Address [facility] de Phone Number [facility] [address] [place] [address] * EKG 12-LEAD (05/22/2022 10:39 EDT) 05/22/2022 10:3 9 EDT Narrative [facility] EKG - 05/22/2022 11:02 EDT ? [facility] ? Test Date: ?2022-05-22 Pat Name: ? RAYNAANN AMADOREGAN ? Department: ?? Vehicle Calibration Engineer ? Room: ? CL Gender: ? Female ? Sales Training Coordinator: ?? [id number] : ?1980 ? Requested By: KASSIDY STOLL Order Number: [id number] ? Reading MD: ?? HALIE HUERTA MD ? Measurements Intervals ?[place] ? Rate: ? 62 ? P: ?23 ME: ? 156 ?QRS: ?53 QRSD: ? 105 ?T: ?32 QT: ? 415 ? QTc: ?423 ? Interpretive Statements SINUS RHYTHM WITH SINUS ARRHYTHMIA NONSPECIFIC T-WAVE ABNORMALITY I reviewed the tracing and have either agreed or edited the findings in this report. Electronically Signed On 05-22-2022 11:02:50 EDT by HALIE HUERTA MD. Procedure Note Halie Huerta MD - 05/22/2022 [facility] Test Date: 2022-05-22 Pat Name: RAYNA EDELMIRA Department: Vehicle Calibration Engineer Room: Gender: Female Sales Training Coordinator: [id number] : 1980 Requested By: KASSIDY STOLL Order Number: [id number] Reading MD: HALIE HUERTA MD Measurements Intervals [place] Rate: 62 P: 23 ME: 156 QRS: 53 QRSD: 105 T: 32 QT: 415 QTc: 423 Interpretive Statements SINUS RHYTHM WITH SINUS ARRHYTHMIA NONSPECIFIC T-WAVE ABNORMALITY I reviewed the tracing and have either agreed or edited the findings inthis report. Electronically Signed On 05-22-2022 11:02:50 EDT by HALIE RG. Magalys Ham MD CARDIAC ECG ORDERABL ES [facility] EKG documented in this encounter Visit Diagnoses [...] 1315, Until Wed05/22/22 at 1940 lidocaine (PF) 10 mg/mL (1 %) injection [...] dose, Starting on Wed05/22/22 at 1349, Until 4/14/23 at 1940 sodium chloride 0.9 % (NS) infusion 30 [...] Take 81 mg by mouth daily. iron-folic pdzl-L-Q52-biotin 75 mg iron- 1 mg-175 mg capsule,ext release multiphase Take by mouth daily. vit,oneil 23-axyt-mfzac ( LOW IRON) 27 mg iron- 1 [...] Matthews RN)1351 (Given - Provider: Mary Ellen Nielsen, RN) iopamidoL (ISOVUE-370) injection (CANCELED) PRN, Starting [...] citrate (PF) 50 mcg/mL injection 1 05/22/2022 fentaNYL citrate (PF) injection 1 3 heparin 1,000 unit/mL injection 1 3 iopamidoL (ISOVUE-370) injection 1 05/23/19 23 lidocaine (PF) 10 mg/mL (1 % ) injection 2 mg 1 05/22/2022 lidocaine (PF) 20 mg/mL (2 %) injection 1 0 05/22/2022 midazolam (PF) (VERSED) 1 mg/mL injection 2 05/22/2022 midazolam (PF) (VERSED) injection 1 023 verapamil (ISOPTIN) 2.5 mg/mL injection 1 0 05/22/2022 Nursing Count Last Ordered Date First Orde red Date PATIENT AT LOW RISK FOR VTE: RISK OF PHARMACOLOGIC PROPHYLAXIS OUTWEIG 1 05/22/2022 Discharge Count Last Ordered Date First Orde red Date DISCHARGE PATIENT 1 05/22/2022 documented in this encounter Care Teams Engineer Specialist Relationship Specialty Start Date End Date Sharron Cintron MD [address] [address] PCP - General 06/06/18 documented as of this encounter
--- OUTSIDE RECORDS SUMMARY | 2023-08-20 22:17 | XMS_ITS | Encounter Summary ---
Author Organization [facility] Address [address] [place] [address] Care Team Providers Care Land Classifier Name Role Phone Unavailable Primary Care Provider Unavailabl e Encounter Details Date Type Department Care Team (Latest Contact Info) Description 04/28/2005 10:13 EST - 04/28/2005 11:59 EST Hospital Encounter [address] [address] Laine Rojo FNP Discharge Disposition: Auto Discharge Social History Tobacco Use Types Packs/Day Years Used Date Smoking Tobacco: Never Assessed Sex and Gender Information Value Date Recorded Sex Assigned at Not on file Gender Identity Female 05/22/2022 10:01 EDT Sexual Orientation Not on file documented as of this encounter Discharge Disposition Disposition Code Departure Means Destination Auto Discharge documented in this encounter Plan of Treatment Upcoming Encounters Date Type Department Care Team (Late st Contact Info) Description 10/22/2023 12:30 EDT Ancillary Procedure [facility] Vascular Surgery [address] [address] 10/22/2023 13:15 EDT Initial consult [facility] V[facility] Surgery [address] [address] Pedrito Plascencia MD [address] [place] [address], [address] [place] [phone] documented as of this encounter Procedures Procedure Name Priority Date/Time Associated Diagnosis Comments CYTOPATHOLOGY Routine 12/02/2007 0:00 EDT RUBELLA IGG ANTIBODY Routine 09/09/2007 15:39 EDT HEPATITIS B SURFACE ANTIGEN Routine 09/09/2007 15:39 EDT SYPHILIS SERO (RPR) Routine 09/09/2007 1 5:39 EDT HIV 1/2 ANTIGEN AND ANTIBODY, 4TH GENERATION Routine 09/09/2007 15:39 EDT documented in this encounter Results * CYTOPATHOLOGY (12/02/2007 0:00 EDT) Pathology Report: CYTOPATHOLOGY REPORT ? Reports generated via electronic interface contain original data; ? however they are lacking the format of the original report. ? Caution should be taken when reading/interpreti ng unformatted reports. ? Name: ? RAYNA WOOD ? Accession #: ? [id number] ? : ? 1980 (Age: 27) ??F ?Collect Date: ? 12/02/2007 ? Location: ? [facility] ? Receive Date: ? 12/05/2007 ? Provider: ?KATHERINE SHANNAN CNM ? Copy to: ? Specimen/Source: ?Pap Test, Cervix/Endocervix, ThinPrep Imaging System ? with manual evaluation ? Last Menstrual Period: ? Menstrual/Pregnanc y Status: ? Previous Gynecologic Pathology: ? HSIL ? Treatment History: ? Colposcopy ? LEEP ? Other: ? Additional clinical information: Last pap 04/08 wnl ? HPVA - HPV testing requested if ASC-US on the current ThinPrep Pap test. ? SPECIMEN ADEQUACY ? Satisfactory for Evaluation ? - transformation zone component absent ? GENERAL CATEGORIZATION ? Negative for Intraepithelial Lesion or Malignancy ? INTERPRETATION ? Fungal organisms present morphologically consistent with Kimi species. ? Document reviewed and electronically signed by: ? Dominguez Garzon, CT(ASCP) ? Report Date: ??12/07/2007 14:44 ? End of Report ? [facility] 12/02/2007 12/05/2007 Katherine Niño CNM PATHOLOGY ORDERABLES [facility] [address] [place] [address] * SYPHILIS SERO (RPR) (09/09/2007 15:39 EDT) Syphilis Sero (RPR) NONREACT. NR Dils [facility] 09/09/2007 15:3 9 EDT 09/09/2007 20:59 EDT Provider Unknown IMMUNOLOGY AND SEROL OGY ORDERABLES Performing Organization Address [facility] Co de Phone Number [facility] [address] [place] [address] * RUBELLA IGG ANTIBODY (09/09/2007 15:39 EDT) Rubella IgG Ab Antibody detected Assayed utilizing the [facility] Immulite 2500. Values may vary with other methods. [facility] 09/09/2007 15:3 9 EDT 09/09/2007 20:59 EDT Provider Unknown CHEMISTRY & BLOOD GA S ORDERABLES Performing Organization Address [facility] de Phone Number [facility] [address] [place] [address] * HIV ANTIBODY (09/09/2007 15:39 EDT) HIV 1/2 Antibody Neg [employer] ECI methodology in use 08/22/2007. NEG [facility] 09/09/2007 15:3 9 EDT 09/09/2007 20:59 EDT Provider Unknown IMMUNOLOGY AND SEROL OGY ORDERABLES Performing Organization Address [facility] de Phone Number [facility] [address] [place] [address] * HEPATITS B SURFACE ANTIGEN (09/09/2007 15:39 EDT) Hepatitis B Surface Ag Neg [facility] 09/09/2007 15:3 9 EDT 09/09/2007 20:59 EDT Provider Unknown CHEMISTRY & BLOOD GA S ORDERABLES Performing Organization Address [facility] Co de Phone Number [facility] [address] [place] [address] documented in this encounter Visit Diagnoses Not on filedocumented in this encounter
--- OUTSIDE RECORDS SUMMARY | 2023-08-20 22:17 | XMS_ITS | Encounter Summary ---
Author Organization [facility] Address [address] [place] [address] Care Team Providers Care Continuous Dryout Operator Name Role Phone Sharron Cintron MD Primary Care Provider [phone] Encounter Details Date Type Department Care Team (Late st Contact Info) Description 09/09/2018 Results Only Imaging [facility]- [facility] [phone] Faith Kincaid, [facility] [address] [facility] [address] [place] [phone] Social History Tobacco Use Types Packs/Day Years [...] Ancillary Procedure [facility] Vascular Surgery - [address] [phone] 10/22/2023 13:15 EDT Initial consult [facility] Vascular Surgery - [address] [phone] Pedrito Plascencia MD [address] [facility], [address] [place] [phone] documented as of this encounter Procedures Procedure Name Priority Date/Time Associated Diagnosis Comments [facility] DETAILED 09/09/2018 11:00 EDT documented in this encounter Results * [facility] DETAILED (09/09/2018 11:00 EDT) Anatomical Region Laterality Modality Other 09/09/2018 11:0 0 EDT 09/09/2018 11:28 EDT Narrative 09/09/2018 11:28 EDT Indication Advanced maternal age BMI 37.2 Prior history of x 2. History ======= General History Height 160 cm Height (ft) ?5 ft Height (in) ?3 in Previous Outcomes ?5 Para ?? 2 Bernal children born (T) ?2 Bernal children born (P) ?0 Abortions (A) ??2 Bernal living children (L) ??2 Other: Prior history of x 2 Maternal Assessment Height 160 cm Height (ft) ?5 ft Height (in) ?3 in Number of fetuses: 1. Dating ======= Method of dating: ??based on the LMP LMP on: ?04/16/2018 GA by LMP ??20 w + 6 d ROSALINDA by LMP : ? 01/21/2019 Stated Dating on: ?06/09/2018 GA at stated dating date 7 w + 3 d GA by stated dating ??20 w + 4 d ROSALINDA by stated dating: ?01/23/2019 Ultrasound examination on: 09/09/2018 GA by U/S based upon: ??AC, BPD, Femur, HC GA by U/S ??20 w + 6 d ROSALINDA by U/S: ?01/21/2019 Assigned: ??Dating performed on 09/09/2018 Based on the LMP Assigned GA ?20 w + 6 d Assigned ROSALINDA: ??01/21/2019 General Evaluation Cardiac activity: Present. FHR 148 bpm. movements: visualized. Presentation: breech oblique. Placenta: anterior. Umbilical cord: Cord vessels: 3 vessel cord. Cord insertion: placental insertion: normal. Amniotic fluid: Amount of AF: normal. Biometry Biometry BPD ?48.9 mm 46% 20w 6d Hadlock OFD ?63.4 mm 76% 21w 4d Lesley HC 181.4 mm ?40% 20w 4d [place] AC 156.6 mm ?42% 20w 6d Hadlock Femur ??34.6 mm 66% 21w 1d Lesley Cerebellum tr ??21.7 mm 50% 21w 2d Jackson CM 5.2 mm ??48% Nicolaides Nuchal fold ?4.02 mm EFW ?380 g Calculated by: Hadlock ([id number]) EFW (lb) ?? 0 lb EFW (oz) ?? 13 oz Cephalic index 0.77 ?33% Nicolaides HC / AC ?1.16 ?52% Hadlock FL / BPD ?? 0.71 ?38% Hadlock FL / AC ?0.22 ?47% Hadlock FHR ?148 bpm Head / Face / Neck Nasal bone 6.6 mm Extremities / Bony Struc Radius 28.9 mm 56% Chitty Ulna ?? 29.8 mm 40% 21w 1d Lesley Tibia ??30.1 mm 58% 21w 0d Lesley Fibula 30.3 mm 47% 20w 5d Lesley Foot ?? 33.1 mm 21% Chitty Anatomy Cranium: ?? normal Lateral ventricles: ?normal Choroid plexus: ?normal Midline falx: ??normal Cavum septi pellucidi: normal Cerebellum: ?normal Cisterna magna: ?normal Parenchyma: ?normal Cerebellar lobes: ??normal Vermis: ?normal Neck: ??normal Nuchal fold: ?? normal Lips: ??normal Profile: ?? normal Nose: ??normal Maxilla: ?? normal Mandible: ??normal 4-chamber view: ?normal RVOT: ??normal LVOT: ??normal Situs: normal Aortic arch: ?? normal SVC: ?? normal IVC: ?? normal 3-vessel view: normal 0-oqdbqu-[id number] view: normal Rt lung: ?? normal Lt lung: ?? normal Diaphragm: normal Cord insertion: ?normal Stomach: ?? normal Bladder: ?? normal Genitals: ??normal Abdom. wall: ?? normal Rt kidney: normal Lt kidney: normal Liver: normal Cervical spine: ?normal Thoracic spine: ?normal Lumbar spine: ??normal Sacral spine: ??normal Skeleton: ??normal Arms: ??normal Legs: ??normal Rt arm: ?normal Lt arm: ?normal Rt hand: ?? normal Lt hand: ?? normal Rt leg: ?normal Lt leg: ?normal Rt foot: ?? normal Lt foot: ?? normal Gender: ?male Wants to know gender: ??yes Aneuploidy Screening Age ?38 yrs Echogenic focus: ?? no Include: ?? intracardiac echogenic focus Include: ?? ventriculomegaly Include: ?? nuchal fold Include: ?? echogenic bowel Include: ?? mild hydronephrosis Ventriculomegaly: ??no Nuchal fold: ?? normal Echogenic bowel: ?? no Pyelectasis: ?? no Short femur: ?? no Include: ?? short humerus Include: ?? nasal bone Short humerus: no Nasal bone: ?present Display risk: ??Risk at time of screening Background risk at time of screening ?? 142 Background risk at term ?165 Adjusted risk at time of screening 381 Adjusted risk at term ??444 Other: She has had normal results on a cell-free DNA in maternal serum test. Maternal Structures Uterus / Cervix Uterus: ?Appears normal Cervix: ?Suboptimal Ovaries / Tubes / Adnexa Rt ovary: ??Visualized, normal appearance Lt ovary: ??Visualized, normal appearance Method ======== Transabdominal ultrasound examination, Voluson E10. View: Limited by maternal habitus and position. Impression [id number] Obstetrical ultrasound with and maternal evaluation, including detailed anatomic examination This is a bernal gestation. Biometry is consistent with menstrual dating. Anatomy appears normal as noted above; however, ultrasound cannot detect all anomalies. As per the [facility] guidelines, the following were evaluated and were normal: the cerebellum (including lobes and vermis), facial profile, the chest (including examination for masses, effusion, integrity of both sides of the diaphragm and lung parenchyma), abdomen for ascites, 12-long bones with normal architecture/position of limbs, hands and feet, placental insertion site of the umbilical cord and placenta for masses. The amniotic fluid volume is normal. There is trunk and extremity movement noted. Follow-up Follow-up as clinically indicated. DATE OF SERVICE: 09/09/2018 Procedure Note Itz Johnson MD, MD - 09/09/2018 Indication Advanced maternal age BMI 37.2 Prior history of x 2. History ======= General History Height 160 cm Height (ft) 5 ft Height (in) 3 in Previous Outcomes 5 Para 2 Bernal children born (T) 2 Bernal children born (P) 0 Abortions (A) 2 Bernal living children (L) 2 Other: Prior history of x 2 Maternal Assessment Height 160 cm Height (ft) 5 ft Height (in) 3 in Number of fetuses: 1. Dating ======= Method of dating: based on the LMP LMP on: 04/16/2018 GA by LMP 20 w + 6 d ROSALINDA by LMP : 01/21/2019 Stated Dating on: 06/09/2018 GA at stated dating date 7 w + 3 d GA by stated dating 20 w + 4 d ROSALINDA by stated datin01/23/2019 Ultrasound examination on: 09/09/2018 GA by U/S based upon: AC, BPD, Femur, HC GA by U/S 20 w + 6 d ROSALINDA by U/S: 01/21/2019 Assigned: Dating performed on 09/09/2018 Based on the LMP Assigned GA 20 w + 6 d Assigned ROSALINDA: 01/21/2019 General Evaluation Cardiac activity: Present. FHR 148 bpm. movements: visualized. Presentation: breech oblique. Placenta: anterior. Umbilical cord: Cord vessels: 3 vessel cord. Cord insertion: placental insertion: normal. Amniotic fluid: Amount of AF: normal. Biometry Biometry BPD 48.9 mm 46% 20w 6d Hadlock OFD 63.4 mm 76% 21w 4d Lesley HC 181.4 mm 40% 20w 4d Chervenak AC 156.6 mm 42% 20w 6d Hadlock Femur 34.6 mm 66% 21w 1d Lesley Cerebellum tr 21.7 mm 50% 21w 2d Jackson CM 5.2 mm 48% Nicolaides Nuchal fold 4.02 mm EFW 380 g Calculated by: Hadlock ([id number]) EFW (lb) 0 lb EFW (oz) 13 oz Cephalic index 0.77 33% Nicolaides HC / AC 1.16 52% Hadlock FL / BPD 0.71 38% Hadlock FL / AC 0.22 47% Hadlock FHR 148 bpm Head / Face / Neck Nasal bone 6.6 mm Extremities / Bony Struc Radius 28.9 mm 56% Chitty Ulna 29.8 mm 40% 21w 1d Lesley Tibia 30.1 mm 58% 21w 0d Lesley Fibula 30.3 mm 47% 20w 5d Lesley Foot 33.1 mm 21% Chitty Anatomy Cranium: normal Lateral ventricles: normal Choroid plexus: normal Midline falx: normal Cavum septi pellucidi: normal Cerebellum: normal Cisterna magna: normal Parenchyma: normal Cerebellar lobes: normal Vermis: normal Neck: normal Nuchal fold: normal Lips: normal Profile: normal Nose: normal Maxilla: normal Mandible: normal 4-chamber view: normal RVOT: normal LVOT: normal Situs: normal Aortic arch: normal SVC: normal IVC: normal 3-vessel view: normal 7-hayxnh-[id number] view: normal Rt lung: normal Lt lung: normal Diaphragm: normal Cord insertion: normal Stomach: normal Bladder: normal Genitals: normal Abdom. wall: normal Rt kidney: normal Lt kidney: normal Liver: normal Cervical spine: normal Thoracic spine: normal Lumbar spine: normal Sacral spine: normal Skeleton: normal Arms: normal Legs: normal Rt arm: normal Lt arm: normal Rt hand: normal Lt hand: normal Rt leg: normal Lt leg: normal Rt foot: normal Lt foot: normal Gender: male Wants to know gender: yes Aneuploidy Screening Age 38 yrs Echogenic focus: no Include: intracardiac echogenic focus Include: ventriculomegaly Include: nuchal fold Include: echogenic bowel Include: mild hydronephrosis Ventriculomegaly: no Nuchal fold: normal Echogenic bowel: no Pyelectasis: no Short femur: no Include: short humerus Include: nasal bone Short humerus: no Nasal bone: present Display risk: Risk at time of screening Background risk at time of screening 142 Background risk at term 165 Adjusted risk at time of screening 381 Adjusted risk at term 444 Other: She has had normal results on a cell-free DNA in maternal serum test. Maternal Structures Uterus / Cervix Uterus: Appears normal Cervix: Suboptimal Ovaries / Tubes / Adnexa Rt ovary: Visualized, normal appearance Lt ovary: Visualized, normal appearance Method ======== Transabdominal ultrasound examination, Voluson E10. View: Limited by maternal habitus and position. Impression [id number] Obstetrical ultrasound with and maternal evaluation, including detailed anatomic examination This is a bernal gestation. Biometry is consistent with menstrual dating. Anatomy appears normal as noted above; however, ultrasound cannot detect all anomalies. As per the [facility] guidelines, the following were evaluated and were normal: the cerebellum (including lobes and vermis), facial profile, the chest (including examination for masses, effusion, integrity of both sides of the diaphragm and lung parenchyma), abdomen for ascites, 12-long bones with normal architecture/position of limbs, hands and feet, placental insertion site of the umbilical cord and placenta for masses. The amniotic fluid volume is normal. There is trunk and extremity movement noted. Follow-up Follow-up as clinically indicated. DATE OF SERVICE: 09/09/2018 [facility] documented in this encounter Visit Diagnoses Not on filedocumented in this encounter Care Teams Continuous Dryout Operator Relationship Specialty Start Date End Date Sharron Cintron MD [address] [phone] PCP - General 06/06/18 documented as of this encounter
--- OUTSIDE RECORDS SUMMARY | 2023-08-20 22:17 | XMS_ITS | Encounter Summary ---
Author Organization [facility] Address [address] [place] [address] Care Team Providers Care Road Engineer Name Role Phone Unknown, Provider Primary Care Provider [phone] Encounter Details Date Type Department Care Team (Latest Contact Info) Description 07/02/2017 11:01 EDT - 07/02/2017 11:02 EDT Hospital Encounter [address] [address] Natalia Wilson NP [address] [place] [phone] Discharge Disposition: Home or Self Care Social [...] as of this encounter Discharge Diagnoses Diagnosis R53.83 Other fatigue-R53.83[ICD-10-CM] documented in this encounter Medications at Time [...] Info) Description 10/22/2023 12:30 EDT Ancillary Procedure [facility] Vascular Surgery - [facility] [address] [place] [address] 10/22/2023 13:15 EDT Initial consult [facility] Vascular Surgery - [facility] [address] [place], [place] [phone] Pedrito Plascencia MD [address] [facility], [address] [place] [phone] documented as of this encounter Procedures Procedure Name Priority Date/Time Associated Diagnosis Comments PATHOLOGY - SCANNED 07/08/2017 22:19 EDT documented in this encounter Results * PATHOLOGY - SCANNED (07/08/2017 22:19 EDT) 07/08/2017 22:1 9 EDT Scan 2 [facility] INFO SERVICE AN D SUPPORT & PHONE RESULT documented in this encounter Visit Diagnoses Not on filedocumented in this encounter Care Teams Road Engineer Relationship Specialty Start Date End Date Unknown, Provider, PCP - General 11/09/12 02/09/18 documented as of this encounter
--- OUTSIDE RECORDS SUMMARY | 2023-08-20 22:17 | XMS_ITS | Encounter Summary ---
Author Organization [facility] Address [address] [place] [address] Care Team Providers Care Apparel Pattern Maker Name Role Phone Unavailable Primary Care Provider Unavailabl e Encounter Details Date Type Department Care Team (Late st Contact Info) Description 12/16/2005 Results Only [facility] [place] [address] [place] [address] Unknown, ProviderMD Social History Tobacco Use Types [...] Info) Description 10/22/2023 12:30 EDT Ancillary Procedure [facility] Vascular Surgery [address] [phone] 10/22/2023 13:15 EDT Initial consult [facility] Vascular Surgery - [address] [address] Pedrito Plascencia MD [address] [facility], [address] [place] [phone] documented as of this encounter Procedures Procedure Name Priority Date/Time Associated Diagnosis Comments N. GONORRHOEAE AMPLIFIED PROBE Routine 12/16/2005 19:22 EST ZZCHLAMYDIA TRACHOMATIS AMPLIFIED PROBE Routine 12/16/2005 19:22 EST documented in this encounter Results * N. GONORRHOEAE AMPLIFIED PROBE (12/16/2005 19:22 EST) Result No Neisseria gonorrhoeae DNA detected by head of advertising mediated amplification. [facility] Report Status Final [id number] [facility] Specimen Description Urine [facility] 12/16/2005 19:2 2 EST 12/17/2005 22:02 EST Provider Unknown MICROBIOLOGY - GENER AL ORDERABLES Performing Organization Address [facility] de Phone Number [facility] [address] [place] [address] * CHLAMYDIA TRACHOMATIS AMPLIFIED PROBE (12/16/2005 19:22 EST) Specimen Description Urine [facility] Result No Chlamydia trachomatis DNA detected by head of advertising mediated amplification. [facility] Report Status Final [id number] [facility] 12/16/2005 19:2 2 EST 12/17/2005 22:02 EST Provider Unknown MICROBIOLOGY - GENER AL ORDERABLES Performing Organization Address [facility] de Phone Number [facility] [address] [place] [address] documented in this encounter Visit Diagnoses Not on filedocumented in this encounter
--- OUTSIDE RECORDS SUMMARY | 2023-08-20 22:17 | XMS_ITS | Encounter Summary ---
Author Organization [facility] Address [address] [place] [address] Care Team Providers Care Setter Automatic Spinning Lathe Name Role Phone Unknown, Provider Primary Care Provider [phone] Encounter Details Date Type Department Care Team (Late st Contact Info) Description 07/02/2017 Results Only [facility] [phone] Natalia Wilson, FITO [address] [place] [phone] Social History Tobacco Use Types Packs/Day [...] Info) Description 10/22/2023 12:30 EDT Ancillary Procedure [facility] Vascular Surgery - [address] [phone] 10/22/2023 13:15 EDT Initial consult [facility] Vascular Surgery [address] [address] Pedrito Plascencia MD [address] [facility], Level [address] [place] [phone] documented as of this encounter Procedures Procedure Name Priority Date/Time Associated Diagnosis Comments MISCELLANEOUS TEST, SHELBY Routine 07/02/2017 16:30 EDT VITAMIN D (25,OH) Routine 07/02/2017 16: 30 EDT COMPLETE BLOOD COUNT Routine 07/02/2017 16:30 EDT TSH Routine 07/02/2017 16:30 EDT COMPREHENSIVE METABOLIC PANEL (CMP) Routine 07/02/2017 16:30 EDT documented in this encounter Results * MISCELLANEOUS TEST, SHELBY (07/02/2017 16:30 EDT) Test Name [place] DISEASE ANTIBODIES PANEL,SERUM 07/06/2017 9:13 EDT [facility] Result See Pathology Scanned Report in [facility]. 07/09/2017 12:22 EDT [facility] Ref Range See Pathology Scanned Report in [facility]. 07/09/2017 12:22 EDT [facility] Ref Lab Test performed by: 07/09/2017 12:22 EDT [facility] Comment: [facility] [place], [place] TOPOGRAPHY UNKNOWN / Unknown 07/02/2017 16:30 EDT 07/02/2017 21:39 EDT Natalia Wilson NP CHEMISTRY & BLOOD GA S ORDERABLES Performing Organization Address City/State/[facility] Co de Phone Number [facility] [address] [place] [address] * (ABNORMAL) VITAMIN D (25,OH) (07/02/2017 16:30 EDT) 25OH Vitamin D Tot 24.1(L) 30 - 100 ng/ml 07/05/2017 12:22 EDT [facility] Comment: Reference Range: Deficient = <10 ng/ml Insufficient = 10-30 ng/ml Sufficient = 30-100 ng/ml Toxic = >100 ng/ml BLOOD SPECIMEN / Unknown 07/02/2017 16:30 EDT 07/02/2017 21:39 EDT Natalia Wilson CHILD & ADOLESCENT PSYCHIATRIST CHEMISTRY & BLOOD GA S ORDERABLES Performing Organization Address City/[facility]/ZIP Co de Phone Number [facility] [address] [place] [address] * TSH (07/02/2017 16:30 EDT) TSH 2.63 0.47 - 4.68 uIU/ml 07/02/2017 22:39 EDT [facility] Comment: The results of this assay can be falsely lowered due to the consumption of Biotin. BLOOD SPECIMEN / Unknown 07/02/2017 16:30 EDT 07/02/2017 21:39 EDT Natalia Wilson NP CHEMISTRY & BLOOD GA S ORDERABLES Performing Organization Address [facility] Co de Phone Number [facility] [address] [place] [address] * (ABNORMAL) COMPREHENSIVE METABOLIC PANEL (CMP) (07/02/2017 16:30 EDT) Potassium 4.4 3.5 - 5.0 mEq/L 07/02/2017 22:07 [facility] Sodium 138 136 - 145 mEq/L 07/02/2017 22:07 [facility] Chloride 106 96 - 110 mEq/L 07/02/2017 22:07 [facility] CO2 24 22 - 32 mEq/L 07/02/2017 22:07 [facility] Total Alkaline Phosphatase 76 38 - 126 U/L 07/02/2017 22:07 [facility] Bilirubin, Total <0.5 <1.4 mg/dl 07/03/19 18 22:07 [facility] AST 29 15 - 46 U/L 07/02/2017 22:07 [facility] ALT 41 <53 U/L 07/02/2017 22:07 [facility] Albumin 3.6 3.4 - 4.9 g/dl 07/02/2017 22:07 [facility] Total Protein 6.1(L) 6.3 - 8.2 g/dl 07/02/2017 22:07 [facility] Creatinine 0.74 0.52 - 1.04 mg/dl 07/02/2017 22:07 [facility] GFR, Calculated 104 >60 ml/min/1.7 3m2 07/02/2017 22:07 [facility] Comment: eGFR calculated using CKD-EPI equation for non Americans. Multiply eGFR by 1.16 for Americans. BUN 11 10 - 26 mg/dl 07/02/2017 22:07 [facility] Calcium 9.3 8.5 - 10.5 mg/dl 07/02/2017 22:07 [facility] Calculated Calcium 9.6 8.5 - 10.5 mg/dl 07/02/2017 22:07 [facility] Glucose, Serum 105(H) 70 - 100 mg/dl 07/02/2017 22:07 [facility] Fasting? Unknown 07/02/2017 21:43 [facility] BLOOD SPECIMEN / Unknown 07/02/2017 16:30 EDT 07/02/2017 21:39 EDT Natalia Wilson NP CHEMISTRY & BLOOD GA S ORDERABLES [facility] [address] [place] [address] * HEMAGRAM (07/02/2017 16:30 EDT) WBC 11.03 4.0 - 12.4 K/cmm 07/02/2017 22:06 [facility] RBC 4.83 3.86 - 5.04 M/cmm 07/02/2017 22:06 [facility] Hemoglobin 14.5 11.6 - 15.2 gm/dl 07/02/2017 22:06 [facility] HCT 43.3 34.9 - 44.4 % 07/02/2017 22:06 [facility] MCV 90 81 - 98 fl 07/02/2017 22:06 EDT [facility] MCH 30.0 26.7 - 33.3 pg 07/02/2017 22:06 EDT [facility] MCHC 33.5 32.1 - 35.9 gm/dl 07/02/2017 22:06 EDT [facility] RDW-CV 12.6 <14.7 % 07/02/2017 22:06 EDT [facility] RDW-SD 41.2 <50.4 fl 07/02/2017 22:06 EDT [facility] PLT 319 141 - 377 K/cmm 07/02/2017 22:06 T [facility] MPV 9.9 9.5 - 12.7 fl 07/02/2017 22:06 T [facility] BLOOD SPECIMEN / Unknown 07/02/2017 16:30 EDT 07/02/2017 21:39 EDT Natalia Wilson CHILD & ADOLESCENT PSYCHIATRIST HEMATOLOGY & PF4 ORD ERABLES Performing Organization Address City/State/[facility] Co de Phone Number [facility] [address] [place] [address] documented in this encounter Visit Diagnoses Not on filedocumented in this encounter Care Teams Setter Automatic Spinning Lathe Relationship Specialty Start Date End Date Unknown, Provider, PCP - General 11/09/12 02/09/18 documented as of this encounter
--- OUTSIDE RECORDS SUMMARY | 2023-08-20 22:17 | XMS_ITS | Encounter Summary ---
Author Organization [facility] Address [address] [place] [address] Care Team Providers Care Overhead Crane Truck Loader Name Role Phone Unknown, Provider Primary Care Provider [phone] Encounter Details Date Type Department Care Team (Late st Contact Info) Description 12/17/2014 Results Only [facility]- [facility] [phone] Natalia Wilson, FITO [address] [place] [address] [place] [phone] Social History Tobacco Use Types Packs/Day Years Used Date Smoking Tobacco: Never Assessed Sex and Gender Information Value Date Recorded Sex Assigned at Not on file Gender Identity Female 05/22/2022 10:01 EDT Sexual Orientation Not on file documented as of this encounter Plan of Treatment Upcoming Encounters Date Type Department Care Team (Late st Contact Info) Description 10/22/2023 12:30 EDT Ancillary Procedure [facility] Vascular Surgery - [address] 098471 10/22/2023 13:15 EDT Initial consult [facility] Vascular Surgery [address] [id number] Pedrito Plascencia MD [address] [facility], [address] 5 [place] [address] documented as of this encounter Procedures Procedure Name Priority Date/Time Associated Diagnosis Comments THYROID CASCADE Routine 12/17/2014 11:15 EST COMPLETE BLOOD COUNT Routine 12/17/2014 11:15 EST THYROID ANTIBODIES Routine 12/17/2014 11 :15 EST LIPID PROFILE (INCLUDES CHOLESTEROL, TRIGLYCERIDES, HDL, LDL) Routine 12/17/2014 11:15 EST COMPREHENSIVE METABOLIC PANEL (CMP) Routine 12/17/2014 11:15 EST documented in this encounter Results * THYROID CASCADE (12/17/2014 11:15 EST) TSH 0.69 0.55 - 4.78 uIU/ml 12/17/2014 22:29 EST [facility] Comment: TSH cascade is not recommended for patients in which pituitary or hypothalamic disorders are suspected. BLOOD SPECIMEN / Unknown 12/17/2014 11:15 EST 12/17/2014 21:06 EST Natalia Wilson NP CHEMISTRY & BLOOD GA S ORDERABLES Performing Organization Address City/[facility]/ZIP Co de Phone Number [facility] [address] [place] [address] * THYROID ANTIBODIES (12/17/2014 11:15 EST) Thyroglobulin Ab <15 <61 U/mL 12/18/19 15 22:24 EST [facility] Thyroperoxidase Ab 48 <61 U/mL 2014 22:24 EST [facility] BLOOD SPECIMEN / Unknown 12/17/2014 11:15 EST 12/17/2014 21:06 EST Natalia Wilson NP CHEMISTRY & BLOOD GA S ORDERABLES [facility] [address] [place] [address] * LIPID PROFILE (INCLUDES CHOLESTEROL, TRIGLYCERIDES, HDL, LDL) (12/17/2014 11:15 EST) Cholesterol 149 mg/dl 12/17/2014 21:45 [facility] Comment: Desirable:<200 Borderline High:200-239 High:>ye=965 Triglycerides 90 mg/dl 12/17/2014 21:45 [facility] Comment: Normal:<150 Borderline High:150-199 High:200-499 Very High:>ql=898 HDL 47 mg/dl 12/17/2014 21:45 [facility] Comment: Low:<40 Normal:40-60 Desirable: >60 LDL, Calculated 84 mg/dl 5 21:45 [facility] Comment: Optimal:<100 Near Optimal:100-129 Borderline High:130-159 High:160-189 Very High:>pt=226 Chol/HDL Ratio 3.2 12/17/2014 21:45 [facility] Fasting? YES 12/17/2014 21:07 [facility] Non HDL Cholesterol 102 mg/dl 12/17/2014 21:45 [facility] Comment: Desirable:<130 Borderline:130-159 High: 160-189 Very High: >kd=557 BLOOD SPECIMEN / Unknown 12/17/2014 11:15 EST 12/17/2014 21:06 EST Natalia Wilson NP CHEMISTRY & BLOOD GA S ORDERABLES Performing Organization Address City/State/[facility] Co de Phone Number [facility] [address] [place] [address] * (ABNORMAL) COMPREHENSIVE METABOLIC PANEL (CMP) (12/17/2014 11:15 EST) Potassium 4.2 3.5 - 5.0 mEq/L 12/17/2014 21:45 [facility] Sodium 139 136 - 145 mEq/L 12/17/2014 21:45 [facility] Chloride 105 96 - 110 mEq/L 12/17/2014 21:45 [facility] CO2 26 24 - 32 mEq/L 12/17/2014 21:45 [facility] Total Alkaline Phosphatase 62 38 - 126 U/L 12/17/2014 21:45 [facility] Bilirubin, Total 0.6 <1.4 mg/dl 12/18/19 15 21:45 [facility] AST 17 15 - 46 U/L 12/17/2014 21:45 [facility] ALT 24 <53 U/L 12/17/2014 21:45 [facility] Albumin 3.6 3.4 - 4.9 g/dl 12/17/2014 21:45 [facility] Total Protein 6.1(L) 6.3 - 8.2 g/dl 12/17/2014 21:45 [facility] Creatinine 0.63 0.52 - 1.04 mg/dl 12/17/2014 21:45 [facility] GFR, Calculated 117 >60 ml/min/1.7 3m2 12/17/2014 21:45 [facility] Comment: eGFR calculated using CKD-EPI equation for non Americans. Multiply eGFR by 1.16 for Americans. BUN 12 10 - 26 mg/dl 12/17/2014 21:45 [facility] Calcium 9.2 8.5 - 10.5 mg/dl 12/17/2014 21:45 [facility] Calculated Calcium 10.0 8.5 - 10.5 mg/dl 12/17/2014 21:45 [facility] Glucose, Serum 89 70 - 100 mg/dl 12/17/2014 21:45 [facility] Fasting? YES 12/17/2014 21:07 [facility] BLOOD SPECIMEN / Unknown 12/17/2014 11:15 EST 12/17/2014 21:06 EST Natalia Wilson NP CHEMISTRY & BLOOD GA S ORDERABLES [facility] [address] [place] [address] * HEMAGRAM (12/17/2014 11:15 EST) WBC 8.94 4.0 - 12.4 K/cmm 12/17/2014 21:15 [facility] RBC 4.77 3.86 - 5.04 M/cmm 12/17/2014 21:15 [facility] Hemoglobin 14.0 11.6 - 15.2 gm/dl 12/17/2014 21:15 [facility] HCT 42.0 34.9 - 44.4 % 12/17/2014 21:15 [facility] MCV 88 81 - 98 fl 12/17/2014 21:15 [facility] MCH 29.5 26.7 - 33.3 pg 12/17/2014 21:15 [facility] MCHC 33.5 32.1 - 35.9 gm/dl 12/17/2014 21:15 [facility] RDW-CV 12.8 11.7 - 14.6 % 12/17/2014 21:15 [facility] RDW-SD 38.5 37.6 - 50.3 fl 12/17/2014 21:15 [facility] PLT 319 141 - 320 K/cmm 12/17/2014 21:15 [facility] MPV 8.5 7.5 - 11.2 fl 12/17/2014 21:15 [facility] BLOOD SPECIMEN / Unknown 12/17/2014 11:15 EST 12/17/2014 21:06 EST Natalia Wilson CLEANER WALL HEMATOLOGY & PF4 ORD ERABLES [facility] [address] [place] [address] documented in this encounter Visit Diagnoses Not on filedocumented in this encounter Care Teams Overhead Crane Truck Loader Relationship Specialty Start Date End Date Unknown, Provider, PCP - General 11/09/12 02/09/18 documented as of this encounter
--- OUTSIDE RECORDS SUMMARY | 2023-08-20 22:17 | XMS_ITS | Encounter Summary ---
Author Organization [facility] Address [address] [place] [address] Care Team Providers Care Bookkeeping Clerks Supervisor Name Role Phone Unavailable Primary Care Provider Unavailabl e Encounter Details Date Type Department Care Team (Late st Contact Info) Description 11/12/2003 Results Only [facility] - [facility] conversion [address] [place] [address] Solis Maldonado MD [address] [place] [address] Social History Tobacco Use Types Packs/Day Years Used Date Smoking Tobacco: Never Assessed Sex and Gender Information Value Date Recorded Sex Assigned at Not on file Gender Identity Female 05/22/2022 10:01 EDT Sexual Orientation Not on file documented as of this encounter Plan of Treatment Upcoming Encounters Date Type Department Care Team (Late st Contact Info) Description 10/22/2023 12:30 EDT Ancillary Procedure [facility] Vascular Surgery [address] [id number] 10/22/2023 13:15 EDT Initial consult [facility] V[facility] Surgery [address] 484331 Pedrito Plascencia MD 111 [facility], [address] [place] [address] documented as of this encounter Procedures Procedure Name Priority Date/Time Associated Diagnosis Comments CYTOPATHOLOGY Routine 11/12/2003 0:00 EDT documented in this encounter Results * CYTOPATHOLOGY (11/12/2003 0:00 EDT) Pathology Report: CYTOPATHOLOGY REPORT Reports generated via electronic interface contain original data; however they are lacking the format of the original report. Caution should be taken when reading/interpreti ng unformatted reports. Name: ? RAYNA WOOD ? Accession #: ? [id number] : ? 1980 (Age: 23) ??F ?Collect Date: ? 11/12/2003 Location: ? [facility] ? Receive Date: ? 11/15/2003 Provider: ?SOLIS MALDONADO MD Copy to: ? Specimen/Source: ?ThinPrep Pap Test, Cervix/Endocervix Last Menstrual Period: ? Menstrual/Pregnanc y Status: ? Post Other: ? HPVA - HPV testing requested if ASC-US on the current ThinPrep Pap test. ? SPECIMEN ADEQUACY ? Satisfactory for Evaluation - transformation zone component present GENERAL CATEGORIZATION ? Epithelial Cell Abnormality INTERPRETATION ? Squamous Cell Abnormality - Low grade squamous intraepithelial lesion (LSIL), cannot exclude ? high grade squamous intraepithelial lesion (HSIL). EDUCATIONAL NOTES/RECOMMENDATI ONS ? There is no ASCCP recommendation specific to the diagnosis above. ??This diagnosis indicates a greater likelihood of the cervix harboring HSIL compared to a diagnosis of LSIL alone, 55% vs. 17% in our experience. ??Initial colposcopic evaluation is advised. Should HSIL not be confirmed on colposcopic evaluation and/or biopsy, close follow-up with Pap test and/or repeat colposcopy is advised. ??In some situations there may be clinical or colposcopic reasons to perform a diagnostic cone biopsy/LEEP. ? Document reviewed and electronically signed by: ? SHAILESH COATS MD ? Report Date: ??11/21/2003 18:25 End of Report [facility] 11/12/2003 11/15/2003 Solis Maldonado MD PATHOLOGY ORDERA SUZ[facility] [address] [place] [address] documented in this encounter Visit Diagnoses Not on filedocumented in this encounter
--- OUTSIDE RECORDS SUMMARY | 2023-08-20 22:17 | XMS_ITS | Encounter Summary ---
Author Organization [facility] Address [address] [place] [address] Care Team Providers Care Human Resources Analyst Name Role Phone Unavailable Primary Care Provider Unavailabl e Encounter Details Date Type Department Care Team (Late st Contact Info) Description 12/28/2003 13:[address] [facility] - Other [address] [place] [id number] Solis Elias MD [address] [place] [address] [phone] Social History Tobacco Use Types Packs/Day Years [...] Description 10/22/2023 12:[address] [facility] Vascular Surgery - [address] [address]251 10/22/2023 13:[address] [facility] Vascular Surgery - [address] [address] Pedrito Plascencia MD 111 [facility], Level [address] [place] [phone] documented as of this encounter Visit Diagnoses Not on filedocumented in this encounter
--- OUTSIDE RECORDS SUMMARY | 2023-08-20 22:17 | XMS_ITS | Encounter Summary ---
Author Organization [facility] Address [address] [place] [address] Care Team Providers Care Reiki Practitioner Name Role Phone Unknown, Provider Primary Care Provider [phone] Reason for Visit * Reason Onset Date Comments Medications Refill 06/29/2013 Encounter Details Date Type Department Care Team (Late st Contact Info) Description 06/29/2013 Refill [facility] [address] [address] Brittany Rea RN Medications Refill Social History Tobacco Use Types Packs/Day Years [...] 10/22/2023 12:30 EDT Ancillary Procedure [facility] Vascular Surgery [address] [id number] 10/22/2023 13:15 EDT Initial consult [facility] Vascular Surgery [address] [phone] Pedrito Plascencia MD 111 [facility], [address] [place] [phone] documented as of this encounter Visit Diagnoses Not on filedocumented in this encounter Care Teams Reiki Practitioner Relationship Specialty Start Date End Date Unknown, Provider, PCP - General 11/09/12 02/09/18 documented as of this encounter
--- OUTSIDE RECORDS SUMMARY | 2023-08-20 22:17 | XMS_ITS | Encounter Summary ---
Author Organization [facility] Address [address] [place] [address] Care Team Providers Care Splicer Machine Operator Name Role Phone Sharron Cintron MD Primary Care Provider [phone] Reason for Visit * Reason Onset Date Comments New Patient Visit 04/25/2020 Zoom Encounter Details Date Type Department Care Team ([facility] st Contact Info) Description 04/25/2020 Telephone [facility] Neurology - S [address] [id number] Unknown, Provider, New Patient Visit (Zoom) Social [...] encounter Miscellaneous Notes * Telephone Encounter - EzekielYesica - 04/25/2020 1352 EDT Left 3rd and final message to schedule NPV (60 min) via Zoom Televideo Extended with Amado Huang ([facility]) or Jack. I have closed the referral - if she calls back and would like to schedule. Please schedule the appointment, open and assign referral. documented in this encounter Plan of Treatment Upcoming Encounters Date Type Department Care Team (Late st Contact Info) Description 10/22/2023 12:30 EDT Ancillary Procedure [facility] Vascular Surgery [address] [address] 10/22/2023 13:15 EDT Initial consult [facility] Vascular [address] [address] Pedrito Plascencia MD [address] [place] [address], [address] [place] [phone] documented as of this encounter Visit Diagnoses Not on filedocumented in this encounter Care Teams Splicer Machine Operator Relationship Specialty Start Date End Date Sharron Cintron MD [address] [phone] PCP - General 06/06/18 documented as of this encounter
--- OUTSIDE RECORDS SUMMARY | 2023-08-20 22:17 | XMS_ITS | Encounter Summary ---
Author Organization [facility] Address [address] [place] [address] Care Team Providers Care Fishing Tool Supervisor Name Role Phone Unknown, Provider Primary Care Provider Encounter Details Date Type Department Care Team (Late st Contact Info) Description 11/08/2012 Results Only [facility] - [facility] ([facility]) [address] [place] [address] Diane Oh MD [address] [place] [phone] Social History Tobacco Use Types Packs/Day Years [...] 10/22/2023 12:30 EDT Ancillary Procedure [facility] Vascular Surgery [address] [id number] 10/22/2023 13:15 EDT Initial consult [facility] Vascular Surgery [address] [phone] Pedrito Plascencia MD 111 [facility], Level [address] [place] [phone] documented as of this encounter Procedures Procedure Name Priority Date/Time Associated Diagnosis Comments PAP TEST- RESULT ONLY Routine 11/08/2012 0:00 EDT documented in this encounter Results * PAP TEST- RESULT ONLY (11/08/2012 0:00 EDT) Pathology Report: CYTOPATHOLOGY REPORT Reports generated via electronic interface contain original data; however they are lacking the format of the original report. Caution should be taken when reading/interpreti ng unformatted reports. Name: ? RAYNA REGAN ? Accession #: ? [id number] ? : ? 1980 (Age: 32) ??F ?Collect Date: ? 11/08/2012 ? Location: ? [facility] ? Receive Date: ? 11/11/2012 ? Provider: DIANE OH MD Copy to: ? Final Report SPECIMEN ADEQUACY ? Satisfactory for Evaluation - transformation zone component absent GENERAL CATEGORIZATION ? Negative for Intraepithelial Lesion or Malignancy INTERPRETATION ? Shift in raeann present suggestive of bacterial vaginosis. Last Menstrual Period: spotting, last 3 wks Specimen/Source: ??Pap Test, Cervix/Endocervix, ThinPrep Imaging System with manual evaluation Document reviewed and electronically signed by: ? ALEE Adkins(ASCP) ? Report ??Date: 11/16/2012 10:03 HPV with Pap Test ? Date Ordered: ? 11/16/2012 ? Status: ?? Signed Out ?Date Complete: ? 11/21/2012 ? By: ??System Interface ? Date Reported: ? 11/21/2012 ? Interpretation RESULT: Negative for HPV. No E6 or E7 mRNA is detected from HPV types 16,18,31,33,35, 39,45,51,52,56,58, 59,66, and 68 by cloth booker mediated amplification. Comments Document reviewed and electronically signed by: ? System Interface ? Report date: 11/21/2012 By the signature above, the attending physician certifies that he/she has personally conducted a gross and/or microscopic examination of the described specimens and rendered or confirmed the above diagnosis. End of Report [facility] 11/08/2012 11/11/2012 Diane Oh MD PATHOLOGY ORDERABLES Performing Organization Address City/State/[facility] Co de Phone Number [facility] [address] [place] [address] documented in this encounter Visit Diagnoses Not on filedocumented in this encounter Care Teams Fishing Tool Supervisor Relationship Specialty Start Date End Date Unknown, Provider, PCP - General 11/09/12 02/09/18 documented as of this encounter
--- OUTSIDE RECORDS SUMMARY | 2023-08-20 22:17 | XMS_ITS | Encounter Summary ---
Author Organization [facility] Address [address] [place] [address] Care Team Providers Care Sample Clerk Name Role Phone Unavailable Primary Care Provider Unavailabl e Encounter Details Date Type Department Care Team (Late st Contact Info) Description 12/28/2003 Results Only [facility] - [place] conversion [address] [place] [address] Ember Meehan MD [address] [place] [address] Social History Tobacco Use Types Packs/Day Years [...] 10/22/2023 12:30 EDT Ancillary Procedure [facility] Vascular Surgery [address] 238351 10/22/2023 13:15 EDT Initial consult [facility] Vascular Surgery - [facility] [address] [place] [address] Pedrito Plascencia MD 111 [facility], Level [address] [place] [phone] documented as of this encounter Procedures Procedure Name Priority Date/Time Associated Diagnosis Comments SURGICAL PATHOLOGY Routine 12/28/2003 0:00 EST documented in this encounter Results * SURGICAL PATHOLOGY (12/28/2003 0:00 EST) Pathology Report: SURGICAL PATHOLOGY REPORT Reports generated via electronic interface contain original data; however they are lacking the format of the original report. Caution should be taken when reading/interpreti ng unformatted reports. Name: ? RAYNA WOOD ? Accession #: ? [id number] ? : ? 1980 (Age: 23) ??F ? Collect Date: ? 12/28/2003 ? Location: ? [facility] ? Receive Date: ? 12/28/2003 ? Provider: EMBER MEEHAN MD Copy to: SOLIS MALDONADO MD ? Final Pathologic Diagnosis: A. ?Cervix, 7 o' clock, biopsy ([facility] [id number]; 12/24/03): 1. ?Low grade squamous intraepithelial lesion (DALE I), ??focal. See comment. B. ?Endocervix, curettage ([facility] [id number] B; 12/24/03): 1. ?Benign endocervical tissue. ?? Comment: ? Although the low grade intraepithelial lesion (LSIL) seen in (A) is focal and the changes are borderline, suffficient architectural and cytologic atypia are present to warrant the diagnosis of LSIL. Document reviewed and electronically signed by: HOSSEIN KEYS MD Report ??Date: 01/01/2004 16:32 By the signature above, the attending physician certifies that he/she has personally conducted a gross and/or microscopic examination of the described specimens and rendered or confirmed the above diagnosis. Specimen(s) Received: ? [facility] [id number] (6) Clinical History: ? Abnl PAP Gross Description: ? Six slides are received for review from [facility], one each labelled [id number], [id number] A dpr 1-3, [id number] dpr 4-6, [id number] B, [id number] B dpr 1-3, [id number] B dpr 4-6. ?? End of Report [facility] 12/28/2003 12/28/2003 13: 15 EST Ember Meehan MD PATHOLOGY ORDERABLES Performing Organization Address City/State/[facility] Co de Phone Number [facility] [address] [place] [address] documented in this encounter Visit Diagnoses Not on filedocumented in this encounter
--- OUTSIDE RECORDS SUMMARY | 2023-08-20 22:17 | XMS_ITS | Encounter Summary ---
Author Organization [facility] Address [address] [place] [address] Care Team Providers Care Continuous Drier Operator Name Role Phone Unknown, Provider Primary Care Provider [phone] Encounter Details Date Type Department Care Team (Late st Contact Info) Description 02/15/2017 Results Only [facility] [phone] Sharron Cintron MD [address] [phone] Social History Tobacco Use Types Packs/Day Years [...] 10/22/2023 12:30 EDT Ancillary Procedure [facility] Vascular Surgery [address] 688361 10/22/2023 13:15 EDT Initial consult [facility] Vascular Surgery [address] 6[address] Pedrito Plascencia MD 111 [facility], Level [address] [place] [phone] documented as of this encounter Procedures Procedure Name Priority Date/Time Associated Diagnosis Comments RESPIRATORY VIRUS DETECTION Routine 02/15/2017 15:35 EST documented in this encounter Results * RESPIRATORY VIRUS DETECTION (02/15/2017 15:35 EST) Result INFLUENZA A VIRUS detected by PCR 02/16/2017 16:19 EST [facility] Result 02/16/2017 16:19 EST [facility] Result No Influenza B virus or RSV detected by PCR 02/16/2017 16:19 EST [facility] NASOPHARYNGEAL STRUCTURE / Unknown 02/15/2017 15:35 EST 02/15/2017 22:51 EST Sharron Cintron MD MICROBIOLOGY - GENER AL ORDERABLES [facility] [address] [place] [address] documented in this encounter Visit Diagnoses Not on filedocumented in this encounter Care Teams Continuous Drier Operator Relationship Specialty Start Date End Date Unknown, Provider, PCP - General 11/09/12 02/09/18 documented as of this encounter
--- OUTSIDE RECORDS SUMMARY | 2023-08-20 22:17 | XMS_ITS | Encounter Summary ---
Author Organization [facility] Address [address] [place] [address] Care Team Providers Care Finish Patcher Name Role Phone Unavailable Primary Care Provider Unavailabl e Encounter Details Date Type Department Care Team (Late st Contact Info) Description 04/28/2005 Results Only [facility] [address] [id number] Celina Orozco FNP Social History Tobacco Use Types Packs/Day Years Used Date Smoking Tobacco: Never Assessed Sex and Gender Information Value Date Recorded Sex Assigned at Not on file Gender Identity Female 05/22/2022 10:01 EDT Sexual Orientation Not on file documented as of this encounter Plan of Treatment Upcoming Encounters Date Type Department Care Team (Late st Contact Info) Description 10/22/2023 12:30 EDT Ancillary Procedure [facility] [address] [id number] 10/22/2023 13:15 EDT Initial consult [facility] [address] [id number] Pedrito Plascencia MD [address] [place] [address], [address] 5 [place] [phone] documented as of this encounter Procedures Procedure Name Priority Date/Time Associated Diagnosis Comments SURGICAL PATHOLOGY Routine 04/28/2005 0:00 EST documented in this encounter Results * SURGICAL PATHOLOGY (04/28/2005 0:00 EST) Pathology Report: SURGICAL PATHOLOGY REPORT Reports generated via electronic interface contain original data; however they are lacking the format of the original report. Caution should be taken when reading/interpreti ng unformatted reports. Name: ? RAYNA WOOD ? Accession #: ? [id number] ? : ? 1980 (Age: 25) ??F ? Collect Date: ? 04/28/2005 ? Location: ? [facility] ? Receive Date: ? 04/29/2005 ? Provider: CELINA OROZCO DEBEAKER Copy to: ? Final Pathologic Diagnosis: A. ?Endocervix, curettage: 1. ?Scant fragments of benign endocervical glandular cells. 2. ?Scant fragments of endometrial tissue with stromal breakdown and ? papillary synchytial metaplasia. 3. ?No definite squamous intraepithelial lesion identified. ??See comment. B. ?Cervix, LEEP: 1. ?High grade squamous intraepithelial lesion (HSIL) (DALE II) with focal ? endocervical gland extension. ? - Lesion is present in two out of three sections of smaller fragment (2/3). - Lesion is present in two out of seven sections of larger fragment (2/7). 2. ?Surgical resection margins negative for squamous intraepithelial lesion. ? - HSIL is focally present immediately adjacent to endocervical tissue edge (B6). Document reviewed and electronically signed by: HARJEET JOHN MD Report ??Date: 04/30/2005 20:02 By the signature above, the attending physician certifies that he/she has personally conducted a gross and/or microscopic examination of the described specimens and rendered or confirmed the above diagnosis. Specimen(s) Received: A. ?ECC B. ?LEEP of cervix Clinical History: ? DALE II on colpo, LEEP now S/P LEEP with ECC; clinical diagnosis code: 622.12 Gross Description: ? Received in formalin labelled Arnold and ECC is 1.0 cc of blood tinged mucus admixed with fragments of red-brown tissue. ??The specimen is submitted entirely as (A). Received in formalin labelled Arnold and LEEP cervix are two unoriented portions of tissue representing a LEEP excision of cervix. ??The smaller specimen measures 1.5 x 0.9 cm and is excised to a depth of 0.4 cm. ??One side is surfaced by a pink-white and slightly granular glistening mucosa. ??The opposite surface shows cautery artifact. ??This surface is inked black and the specimen is serially sectioned and submitted entirely as (B1) to (B3). ??The larger specimen measures 1.4 x 1.2 cm and is excised to a depth of 0.2 cm. ??The specimen is partially covered on one surface with a glistening owens-pink mucosa. ??The remaining surfaces show cautery artifact. ??There is a centrally located slit-like os which measures 0.5 cm across. ??The ectocervical margin is inked blue and the endocervical margin is inked black. ??The specimen is serially sectioned in a radial fashion and is submitted entirely as (B4) to (B10). ??(ALEA Lockett)/g End of Report [facility] 04/28/2005 04/29/2005 8:4 9 EST Celina Orozco [facility] PATHOLOGY ORDERABLES [facility] [address] [place] [address] documented in this encounter Visit Diagnoses Not on filedocumented in this encounter
--- OUTSIDE RECORDS SUMMARY | 2023-08-20 22:17 | XMS_ITS | Encounter Summary ---
Author Organization [facility] Address [address] [place] [address] Care Team Providers Care Pole Maker Name Role Phone Unknown, Provider Primary Care Provider [phone] Encounter Details Date Type Department Care Team (Late st Contact Info) Description 07/12/2017 Results Only Imaging [facility] [phone] Natalia Wilson, FITO [address] [place] [phone] Social History Tobacco Use Types Packs/Day [...] Info) Description 10/22/2023 12:30 EDT Ancillary Procedure [facility] Vascular Surgery [address] [id number] 10/22/2023 13:15 EDT Initial consult [facility] Surgery [address] [id number] Pedrito Plascencia MD [address] [facility], [address] 5 [place] [phone] documented as of this encounter Visit Diagnoses Not on filedocumented in this encounter Care Teams Pole Maker Relationship Specialty Start Date End Date Unknown, Provider, PCP - General 11/09/12 02/09/18 documented as of this encounter
--- OUTSIDE RECORDS SUMMARY | 2023-08-20 22:17 | XMS_ITS | Encounter Summary ---
Author Organization [facility] Address [address] [place] [address] Care Team Providers Care Molder Meat Name Role Phone Unavailable Primary Care Provider Unavailabl e Encounter Details Date Type Department Care Team (Late st Contact Info) Description 03/05/2005 Results Only [facility] [place] conversion [address] [place] [address] Unknown, ProviderMD Social History Tobacco Use Types [...] Info) Description 10/22/2023 12:30 EDT Ancillary Procedure [facility] Vascular Surgery [address] [address] 10/22/2023 13:15 EDT Initial consult [facility] Surgery - [address] [address] Pedrito Plascencia MD 111 [facility], [address] [place] [phone] documented as of this encounter Procedures Procedure Name Priority Date/Time Associated Diagnosis Comments HPV DETECTION, HIGH RISK TYPES Routine 03/05/2005 18:41 EST N. GONORRHOEAE AMPLIFIED PROBE Routine 03/05/2005 18:40 EST ZZCHLAMYDIA TRACHOMATIS AMPLIFIED PROBE Routine 03/05/2005 18:40 EST CYTOPATHOLOGY Routine 03/05/2005 0:00 EST documented in this encounter Results * HUMAN PAPILLOMA VIRUS DNA TEST (03/05/2005 18:41 EST) Specimen Description Cervix, ThinPrep vial [facility] Result Positive for one or more of HPV types 16,18,31,33,35 ,39,45,51,52,5 6,58,59, or 68. These high/intermedi ate risk HPV types are associated with dysplasia and some cervical cancers. [facility] Report Status Final [id number] [facility] 03/05/2005 18:4 1 EST 03/12/2005 10:26 EST Solis Maldonado MD MICROBIOLOGY - G ENERAL ORDERABLES Performing Organization Address City/[facility]/ZIP Co de Phone Number [facility] [address] [place] [address] * N. GONORRHOEAE AMPLIFIED PROBE (03/05/2005 18:40 EST) Result No Neisseria gonorrhoeae DNA detected by healthcare facility administrator mediated amplification. [facility] Report Status Final [id number] [facility] Specimen Description Urine [facility] 03/05/2005 18:4 0 EST 03/06/2005 21:51 EST Provider Shawn FINLEY MICROBIOLOGY - GENER AL ORDERABLES Performing Organization Address City/[facility] Co de Phone Number [facility] [address] [place] [address] * CHLAMYDIA TRACHOMATIS AMPLIFIED PROBE (03/05/2005 18:40 EST) Specimen Description Urine [facility] Result No Chlamydia trachomatis DNA detected by healthcare facility administrator mediated amplification. [facility] Report Status Final [id number] [facility] 03/05/2005 18:4 0 EST 03/06/2005 21:51 EST Provider Unknown MICROBIOLOGY - HEIDI AL ORDERABLES [facility] [address] [place] [address] * CYTOPATHOLOGY (03/05/2005 0:00 EST) Pathology Report: CYTOPATHOLOGY REPORT Reports generated via electronic interface contain original data; however they are lacking the format of the original report. Caution should be taken when reading/interpreti ng unformatted reports. Name: ? RAYNA WOOD ? Accession #: ? [id number] : ? 1980 (Age: 25) ??F ?Collect Date: ? 03/05/2005 Location: ? [facility] ? Receive Date: ? 03/09/2005 Provider: ?SOLIS MALDONADO MD Copy to: ? Specimen/Source: ?ThinPrep Pap Test, Cervix/Endocervix, processed on [employer] ThinPrep Imaging System, with manual evaluation Last Menstrual Period: ? 01/12/05 Previous Gynecologic Pathology: ? LSIL: 11/11 Treatment History: ? Colposcopy: 12/12 Other: ? HPVA - HPV testing requested if ASC-US on the current ThinPrep Pap test. ? SPECIMEN ADEQUACY ? Satisfactory for Evaluation - transformation zone component present GENERAL CATEGORIZATION ? Epithelial Cell Abnormality INTERPRETATION ? Squamous Cell Abnormality - Atypical squamous cells, undetermined significance. EDUCATIONAL NOTES/RECOMMENDATI ONS ? [facility] recommends following the 2001 Consensus Guidelines for the Management of Women with Cervical Cytological Abnormalities (TERESA,2002;287:212 0-9). Management algorithms have been distributed by [facility] and are available online at www.ASCCP.org. ? Document reviewed and electronically signed by: ? Chas Ricketts MD ? Report Date: ??03/11/2005 14:52 End of Report [facility] 03/05/2005 03/09/2005 Solis Maldonado MD PATHOLOGY ORDERA SUZANNE [facility] [address] [place] [address] documented in this encounter Visit Diagnoses Not on filedocumented in this encounter
--- OUTSIDE RECORDS SUMMARY | 2023-08-20 22:17 | XMS_ITS | Encounter Summary ---
Author Organization [facility] Address [address] [place] [address] Care Team Providers Care Die Repairer Trimmer Dies Name Role Phone Unknown, Provider Primary Care Provider [phone] Encounter Details Date Type Department Care Team (Latest Contact Info) Description 02/15/2017 12:52 EST - 02/15/2017 12:53 EST Hospital Encounter [place] [id number] [place] [address] Sharron Cintron MD [address] [phone] Discharge Disposition: Home or Self Care Social History Tobacco Use Types Packs/Day Years Used Date Smoking Tobacco: Never Assessed Sex and Gender Information Value Date Recorded Sex Assigned at Not on file Gender Identity Female 05/22/2022 10:01 EDT Sexual Orientation Not on file documented as of this encounter Discharge Diagnoses Diagnosis J11.1 Influenza due to unidentified influenza virus with other respiratory manifestations-J11.1[ICD-10-CM] documented in this encounter Discharge Disposition Disposition Code Departure Means Destination Home or Self Care documented in this encounter Plan of Treatment Upcoming Encounters Date Type Department Care Team (Late st Contact Info) Description 10/22/2023 12:30 EDT Ancillary Procedure [facility] Vascular Surgery [address] [address] 10/22/2023 13:15 EDT Initial consult [facility] Vascular [address] [address] Pedrito Plascencia MD 111 [facility], [address] [place] [phone] documented as of this encounter Visit Diagnoses Not on filedocumented in this encounter Care Teams Die Repairer Trimmer Dies Relationship Specialty Start Date End Date Unknown, Provider, PCP - General 11/09/12 02/09/18 documented as of this encounter
--- OUTSIDE RECORDS SUMMARY | 2023-08-20 22:17 | XMS_ITS | Encounter Summary ---
Author Organization [facility] Address [address] [place] [address] Care Team Providers Care Bridge Crew Member Name Role Phone Unavailable Primary Care Provider Unavailabl e Encounter Details Date Type Department Care Team (Late st Contact Info) Description 04/05/2006 Results Only [facility] - [place] conversion [address] [place] [address] Solis Maldonado MD [address] [place] [address] Social History Tobacco Use Types Packs/Day Years Used Date Smoking Tobacco: Never Assessed Sex and Gender Information Value Date Recorded Sex Assigned at Not on file Gender Identity Female 05/22/2022 10:01 EDT Sexual Orientation Not on file documented as of this encounter Plan of Treatment Upcoming Encounters Date Type Department Care Team (Late st Contact Info) Description 10/22/2023 12:30 EDT Ancillary Procedure [facility] Vascular Surgery [address] [id number] 10/22/2023 13:15 EDT Initial consult [facility] Surgery [address] 2249[address] Pedrito Plascencia MD 111 [facility], [address] [place] [address] documented as of this encounter Procedures Procedure Name Priority Date/Time Associated Diagnosis Comments HPV DETECTION, HIGH RISK TYPES Routine 04/05/2006 17:47 EST CYTOPATHOLOGY Routine 04/05/2006 0:00 EST documented in this encounter Results * HUMAN PAPILLOMA VIRUS DNA TEST (04/05/2006 17:47 EST) Specimen Description Cervix, ThinPrep vial [facility] Result Positive for one or more of HPV types 16,18,31,33,35 ,39,45,51,52,5 6,58,59, or 68. These high/intermedi ate risk HPV types are associated with dysplasia and some cervical cancers. [facility] Report Status Final [id number] [facility] 04/05/2006 17:4 7 EST 04/13/2006 10:11 EST Solis Maldonado MD [facility] Performing Organization Address City/State/[facility] Co de Phone Number [facility] [address] [place] [address] * CYTOPATHOLOGY (04/05/2006 0:00 EST) Pathology Report: CYTOPATHOLOGY REPORT Reports generated via electronic interface contain original data; however they are lacking the format of the original report. Caution should be taken when reading/interpreti ng unformatted reports. Name: ? RAYNA WOOD ? Accession #: ? [id number] : ? 1980 (Age: 26) ??F ?Collect Date: ? 04/05/2006 Location: ? [facility] ? Receive Date: ? 04/07/2006 Provider: ?SOLIS MALDONADO MD Copy to: ? Specimen/Source: ?ThinPrep Pap Test, Cervix/Endocervix, processed on [employer] ThinPrep Imaging System, with manual evaluation Last Menstrual Period: ? Previous Gynecologic Pathology: ? HSIL: 03/16 ASC-US: 02/13 HPV: + 02/13 Treatment History: ? Colposcopy: 03/16 HGSIL LEEP: 05/14 Other: ? HPVA - HPV testing requested if ASC-US on the current ThinPrep Pap test. ? SPECIMEN ADEQUACY ? Satisfactory for Evaluation - transformation zone component present GENERAL CATEGORIZATION ? Epithelial Cell Abnormality INTERPRETATION ? Squamous Cell Abnormality - Atypical squamous cells, undetermined significance (ASC-US). EDUCATIONAL NOTES/RECOMMENDATI ONS ? [facility] recommends following the 2001 Consensus Guidelines for the Management of Women with Cervical Cytological Abnormalities (TERESA,2002;287:212 0-9). Management algorithms have been distributed by [facility] and are available online at www.ASCCP.org. ? Document reviewed and electronically signed by: ? Halle Maza MD ? Report Date: ??04/12/2006 16:07 End of Report [facility] 04/05/2006 04/07/2006 Solis Maldonado MD PATHOLOGY HARPREET PALACIOS Performing Organization Address City/State/[facility] Co de Phone Number [facility] [address] [place] [address] documented in this encounter Visit Diagnoses Not on filedocumented in this encounter
--- OUTSIDE RECORDS SUMMARY | 2023-08-20 22:17 | XMS_ITS | Encounter Summary ---
Author Organization [facility] Address [address] [place] [address] Care Team Providers Care Food Production Worker Name Role Phone Unavailable Primary Care Provider Unavailabl e Encounter Details Date Type Department Care Team (Latest Contact Info) Description 04/01/2005 11:15 EST - 04/01/2005 11:59 EST Hospital Encounter [facility] - [address] [address] Dominguez Naqvi MD [address] [place] [address] Discharge Disposition: Home-Health Care Svc Social History Tobacco Use Types Packs/Day Years Used Date Smoking Tobacco: Never Assessed Sex and Gender Information Value Date Recorded Sex Assigned at Not on file Gender Identity Female 05/22/2022 10:01 EDT Sexual Orientation Not on file documented as of this encounter Discharge Disposition Disposition Code Departure Means Destination Home-Health Care Svc documented in this encounter Plan of Treatment Upcoming Encounters Date Type Department Care Team (Late st Contact Info) Description 10/22/2023 12:30 EDT Ancillary Procedure [facility] Vascular Surgery - [address] [address] 10/22/2023 13:15 EDT Initial consult [facility] V[facility] Surgery [address] [phone] Pedrito Plascencia MD 111 [facility], [address] [place] [phone] documented as of this encounter Visit Diagnoses Not on filedocumented in this encounter
--- OUTSIDE RECORDS SUMMARY | 2023-08-20 22:17 | XMS_ITS | Encounter Summary ---
Author Organization [facility] Address [address] [place] [address] Care Team Providers Care Satellite Dish Installer Name Role Phone Sharron Cintron MD Primary Care Provider [phone] Encounter Details Date Type Department Care Team (Late st Contact Info) Description 07/28/2018 Results Only [facility] [phone] Rose Escalona, [address] [phone] Social History Tobacco Use Types Packs/Day Years [...] Info) Description 10/22/2023 12:30 EDT Ancillary Procedure [facility] Vascular Surgery - [address] [address] 10/22/2023 13:15 EDT Initial consult [facility] Vascular Surgery - [address] [address] Pedrito Plascencia MD 111 [facility], [address] [place] [address] [phone] (work) documented as of this encounter Procedures Procedure Name Priority Date/Time Associated Diagnosis Comments PAP TEST- RESULT ONLY Routine 07/28/2018 0:00 EDT documented in this encounter Results * PAP TEST- RESULT ONLY (07/28/2018 0:00 EDT) Pathology Report: CYTOPATHOLOGY REPORT Reports generated via electronic interface contain original data; however they are lacking the format of the original report. Caution should be taken when reading/interpreti ng unformatted reports. Name: ? RAYNA REGAN ? Accession #: ? [id number] ? : ? 1980 (Age: 38) ??F ?Collect Date: ? 07/28/2018 ? Location: ? [facility] ? Receive Date: ? 08/02/2018 ? Provider: ROSE ESCALONA [facility] Copy to: ? Final Report SPECIMEN ADEQUACY ? Satisfactory for Evaluation - transformation zone component absent GENERAL CATEGORIZATION ? Negative for Intraepithelial Lesion or Malignancy INTERPRETATION ? Shift in raeann present suggestive of bacterial vaginosis. Last Menstrual Period: 04/16/2018 Menstrual/Pregnanc y Status: ?? Other: Additional clinical information: Z12.4 Z11.51 Specimen/Source: ??Pap Test, Cervix/Endocervix, ThinPrep Imaging System with manual evaluation Document reviewed and electronically signed by: ? JOE Webb(ASCP) ? Report ??Date: 08/03/2018 14:55 HPV with Pap Test ? Date Ordered: ? 08/03/2018 ? Status: ?? Signed Out ?Date Complete: ? 08/04/2018 ? By: ??System Interface ? Date Reported: ? 08/04/2018 ? Interpretation RESULT: Negative for HPV. No E6 or E7 mRNA is detected from HPV types 16,18,31,33,35, 39,45,51,52,56,58, 59,66, and 68 by photographic editor mediated amplification. Comments Document reviewed and electronically signed by: ? System Interface ? Report date: 08/04/2018 By the signature above, the attending physician certifies that he/she has personally conducted a gross and/or microscopic examination of the described specimens and rendered or confirmed the above diagnosis. End of Report [facility] 07/28/2018 08/02/2018 Rose Escalona [facility] PATHOLOGY ORDERABLES [facility] [address] [place] [address] documented in this encounter Visit Diagnoses Not on filedocumented in this encounter Care Teams Satellite Dish Installer Relationship Specialty Start Date End Date Sharron Cintron MD [address] [phone] PCP - General 06/06/18 documented as of this encounter
--- OUTSIDE RECORDS SUMMARY | 2023-08-20 22:18 | XMS_ITS | Encounter Summary ---
Author Organization [facility] Address [address] [place] [address] Care Team Providers Care Technical Sales Director Name Role Phone Unavailable Primary Care Provider Unavailabl e Encounter Details Date Type Department Care Team (Late st Contact Info) Description 05/14/2003 10:59 EDT Hospital Encounter [facility] - [address] [address] Katherine Campbell, [address] [place] [address] Social History Tobacco Use Types Packs/Day Years [...] Info) Description 10/22/2023 12:30 EDT Ancillary Procedure [facility] Vascular Surgery - [address] [address] 10/22/2023 13:15 EDT Initial consult [facility] V[facility] Surgery - [address] [phone] Pedrito Plascencia MD 111 [facility] 5 [place] [phone] documented as of this encounter Procedures Procedure Name Priority Date/Time Associated Diagnosis Comments CYTOPATHOLOGY Routine 05/14/2003 0:00 EDT documented in this encounter Results * CYTOPATHOLOGY (05/14/2003 0:00 EDT) Pathology Report: CYTOPATHOLOGY REPORT Reports generated via electronic interface contain original data; however they are lacking the format of the original report. Caution should be taken when reading/interpreti ng unformatted reports. Name: ? RAYNA WOOD ? Accession #: ? [id number] : ? 1980 (Age: 23) ??F ?Collect Date: ? 05/14/2003 Location: ? [facility] ? Receive Date: ? 05/17/2003 Provider: ?[facility] Copy to: ? Specimen/Source: ?ThinPrep Pap Test, Cervix/Endocervix Last Menstrual Period: ? 06/12/02 Menstrual/Pregnanc y Status: ? Post Previous Gynecologic Pathology: ? ASC-US: 07/19/02 Other: ? HPVDX - HPV testing requested regardless of diagnosis on current ThinPrep Pap test. ? SPECIMEN ADEQUACY ? Satisfactory for Evaluation - transformation zone component present GENERAL CATEGORIZATION ? Epithelial Cell Abnormality INTERPRETATION ? Squamous Cell Abnormality - Atypical squamous cells, undetermined significance. EDUCATIONAL NOTES/RECOMMENDATI ONS ? [facility] recommends following the 2001 Consensus Guidelines for the Management of Women with Cervical Cytological Abnormalities (TERESA,2002;287:212 0-9). Management algorithms have been distributed by [facility] and are available online at www.ASCCP.org. ? Document reviewed and electronically signed by: ? Rhonda Nance MD ? Report Date: ??05/23/2003 10:08 End of Report [facility] 05/14/2003 05/17/2003 Katherine Campbell CNM PATHOLOGY ORDERABLES [facility] [address] [place] [address] documented in this encounter Visit Diagnoses Not on filedocumented in this encounter
--- OUTSIDE RECORDS SUMMARY | 2023-08-20 22:18 | XMS_ITS | Encounter Summary ---
Author Organization [facility] Address [address] [place] [address] Care Team Providers Care Batch Unit Treater Name Role Phone Unavailable Primary Care Provider Unavailabl e Encounter Details Date Type Department Care Team (Late st Contact Info) Description 05/14/2003 Results Only [facility] [place], [place] conversion [address] [place] [address] Marisa Niño, [id number] [place] [address] Social History Tobacco Use Types Packs/Day Years [...] Ancillary Procedure [facility] [address] [address] 10/22/2023 13:15 EDT Initial consult [facility] [address] [address] Pedrito Plascencia MD [address] [facility], [address] [place] [address] documented as of this encounter Procedures Procedure Name Priority Date/Time Associated Diagnosis Comments HPV DETECTION, HIGH RISK TYPES Routine 05/14/2003 14:58 EDT documented in this encounter Results * HUMAN PAPILLOMA VIRUS DNA TEST (05/14/2003 14:58 EDT) Specimen Description Cervix, ThinPrep vial [facility] Result Positive for one or more of HPV types 16,18,31,33,35 ,39,45,51,52,5 6,58,59, or 68. These high/intermedi ate risk HPV types are associated with dysplasia and some cervical cancers. [facility] Report Status Final [id number] [facility] 05/14/2003 14:5 8 EDT 05/23/2003 14:58 EDT Marisa Niño CNM MICROBIOLOGY - GENER AL ORDERABLES [facility] [address] [place] [address] documented in this encounter Visit Diagnoses Not on filedocumented in this encounter
== END 2023-08-20 22:04 | disposition home or self-care (01) ==
LOC: NCHCN 22:03
PROVIDERS: PCP Nurse Practitioner Family; Visit Provider Family Medicine
DX: E66.9 Obesity, unspecified (principal); R73.03 Prediabetes; E87.6 Hypokalemia
CPT/HCPCS: 80048; 80061; 83036

== ENCOUNTER 2024-06-08 11:45 | Outpatient (REF) | payer MEDICAID, SELFPAY ==
[2024-06-08 16:25] LABS: COMMENT (LAB VIEW ONLY) 326.32 mg/dL; Microalb ug/mg Crea 6.6 ug/mg Cr
== END 2024-06-08 11:46 | disposition home or self-care (01) ==
LOC: NCHCN 11:45
PROVIDERS: PCP Nurse Practitioner Family; Visit Provider Family Medicine
DX: E11.9 Type 2 diabetes mellitus without complications (principal)
CPT/HCPCS: 82043; 82570

== ENCOUNTER 2024-10-24 14:57 | Outpatient (REF) | payer SELFPAY ==
[2024-10-25 13:00] LABS: Bacterial Vaginosis (BV) Positive (Negative); Candida glabrata Negative (Negative); Candida species group Positive (Negative)
== END 2024-10-24 14:58 | disposition home or self-care (01) ==
LOC: NCHCN 14:57
PROVIDERS: PCP Nurse Practitioner Family; Visit Provider Nurse Practitioner Family
DX: B37.31 Acute candidiasis of vulva and vagina (principal)
CPT/HCPCS: 81513; 87481; 87661